=== PATIENT | male | born 1960 | race Caucasian/White ===

== ENCOUNTER 2019-11-20 14:04 | Outpatient (CLI) | payer BC, SELFPAY ==
[2019-11-23 12:59] LABS: LH 6.6 mIU/mL (1.5-9.3)
[2019-11-25 07:07] LABS: Testosterone Free 76.6 pg/mL (35.0-155.0); Testosterone Total 479 ng/dL (250-1100)
== END 2019-11-20 14:05 | disposition home or self-care (01) ==
LOC: CHSLAB 14:06
PROVIDERS: PCP Internal Medicine; Visit Provider Internal Medicine
DX: N52.9 Male erectile dysfunction, unspecified (principal); E29.1 Testicular hypofunction
CPT/HCPCS: 36415; 83002; 84402; 84403

== ENCOUNTER 2020-06-24 10:29 | Outpatient (CLI) | payer BC, SELFPAY ==
[2020-06-24 10:41] LABS: Basophils Absolute Auto 0.06 K/mm3 (0.00-0.10); Basophils Percent Auto 0.8 % (0.0-1.0); Eosinophils Absolute Auto 0.34 K/mm3 (0.02-0.50); Eosinophils Percent Auto 4.6 % (1.0-6.0); Hematocrit 42.5 % (40.0-54.0); Hemoglobin 15.2 g/dL (14.0-18.0); Immature Granulocyte Absolute 0.02 K/mm3 (0.00-0.00); Immature Granulocyte Percent A 0.3 % (0.0-0.0); Lymphocytes Absolute Auto 2.57 K/mm3 (1.10-4.50); Lymphocytes Percent Auto 34.5 % (18.0-42.0); Mean Corpuscular HGB Conc 35.8 g/dL (32.0-36.0); Mean Corpuscular Hemoglobin 33.2 pg (27.0-31.0); Mean Corpuscular Volume 92.8 fL (78.0-102.0); Mean Platelet Volume 9.5 fl (8.7-11.0); Monocytes Absolute Auto 0.81 K/mm3 (0.10-0.90); Monocytes Percent Auto 10.9 % (2.0-11.0); Neutrophils Absolute Auto 3.7 K/mm3 (1.7-7.2); Neutrophils Percent Auto 48.9 % (50.0-70.0); Platelet Count Result 210 K/mm3 (150-420); Red Blood Count 4.58 M/mm3 (4.70-6.10); White Blood Count 7.5 K/mm3 (4.8-10.8)
[2020-06-24 10:49] LABS: Add Urine Microscopic? NO; Appearance Urine Clear (Clear); Bilirubin Urine Negative (Negative); Blood Urine Negative (Negative); Color Urine Yellow (Yellow); Glucose Urine UA Negative (Negative); Ketones Urine Negative (Negative); Leukocyte Esterase Ur Negative (Negative); Nitrate Urine Negative (Negative); Protein Urine Negative (Negative); Urobilinogen Urine 0.2 mg/dL (0.2-1.0); pH Urine 5.5 (5.0-8.0)
[2020-06-24 11:45] LABS: Alanine Aminotransferase 25 U/L (16-63); Albumin Level 3.8 g/dL (3.4-5.0); Alkaline Phosphatase 105 U/L (46-116); Anion Gap 7 mmol/L (8-16); Aspartate Amino Transferase 12 U/L (15-37); Bilirubin,Total 0.4 mg/dL (0.00-1.00); Blood Urea Nitrogen 15 mg/dL (7-18); Calcium 9.8 mg/dL (8.5-10.1); Carbon Dioxide 30 mmol/L (21-32); Chloride 100 mmol/L (98-108); Cholesterol 204 mg/dL (0-200); Estimated Glomerular Filt Rate > 60; Glucose 110 mg/dL (70-99); HDL Direct 39 mg/dL (40-60); LDL Cholesterol Calculated 128 mg/dL (<130); Osmolality Calculated 285 mOsm/kg (285-295); Potassium 4.3 mmol/L (3.5-5.1); Prostate Specific Antigen 2.5 ng/mL (< OR = 4.0); Sodium 137 mmol/L (136-145); Total Protein 7.8 g/dL (6.4-8.2); Triglycerides 183 mg/dL (0-150)
[2020-06-24 16:02] LABS: Hemoglobin A1C 5.3 % (<5.7)
== END 2020-06-24 10:30 | disposition home or self-care (01) ==
LOC: CHSLAB 10:31
PROVIDERS: PCP Internal Medicine; Visit Provider Internal Medicine
DX: Z00.00 Encounter for general adult medical examination without abnormal findings (principal); I10 Essential (primary) hypertension; Z12.5 Encounter for screening for malignant neoplasm of prostate; R73.9 Hyperglycemia, unspecified
CPT/HCPCS: 36415; 80053; 80061; 81003; 83036; 84153; 85025; G0103

== ENCOUNTER 2020-08-16 02:06 | Outpatient (CLI) | payer BC, SELFPAY ==
[2020-08-16 19:10] LABS: SARS-CoV-2 RNA PCR Negative
== END 2020-08-16 02:07 | disposition home or self-care (01) ==
LOC: ANHCOVIDDT 02:06
PROVIDERS: PCP Internal Medicine; Visit Provider Surgery
DX: Z01.812 Encounter for preprocedural laboratory examination (principal); Z20.828 Contact with and (suspected) exposure to other viral communicable diseases
CPT/HCPCS: 87635; C9803; U0003

== ENCOUNTER 2020-08-19 00:32 | Day surgery (SDC) | payer BC, SELFPAY ==
[2020-08-05 14:59] VITALS: BMI 30.2
[2020-08-19 14:04] VITALS: BP 178/86; PULSE 63; RESP 20; TEMP 36.7; O2SAT 98
--- NOTE | 2020-08-19 14:38 | PM.IMHP ---
H&P: HPI History of Present Illness Date/Time: 08/19/20 14:38 Chief complaint: 2 CM Back Mass Narrative: Savage Lebron is a 60 year old male who presents for excision of a skin lesion on his back. He previously had melanoma excised in this area. Review of Systems Review of Systems: All systems reviewed & are unremarkable except as noted in HPI and below Constitutional: Constitutional: Denies chills, Denies fever(s), Denies headache(s) and Denies weight loss Eyes: Eyes: Denies change in vision ENT: Denies dizziness, Denies headache(s), Denies neck mass and Denies throat swelling Cardiovascular: Cardiovascular: Denies chest pain, Denies lightheadedness and Denies dyspnea Respiratory: Respiratory: Denies cough, Denies dyspnea and Denies wheezing Gastrointestinal: Gastrointestinal: Denies abdominal pain, Denies change in bowel habits, Denies nausea and Denies vomiting Genitourinary: Genitourinary: Denies hematuria and Denies dysuria Musculoskeletal: Musculoskeletal: Reports as per HPI Integumentary/Breasts: Skin/Breast: Reports as per HPI Neurologic: Denies dizziness and Denies headache(s) Allergic/Immunologic: Allergic/Immunologic: Denies throat swelling and Denies wheezing PMF Past Medical History Medical History Hypertension Osteoporosis Skin cancer Surgical History Surgical History History of appendectomy Status post surgical removal of malignant neoplasm of skin Family History Family History Sibling Hypertension Father Colon cancer Social History Social History Smoking packs per day: 1 Smoking cigarettes per day: 20.0 Years smoked: 40 Smoking pack-years: 40.00 Smoking status: Current every day smoker Tobacco type: cigarettes Alcohol intake: current Drinks per week: 24 Alcohol use details: 24 BEERS A WEEK Substance use: current Substance use type: marijuana Other substance usage details: USES 3-4 TIMES A WEEK Last use: 08/04/2020 Living arrangements: alone 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 Gender identity (if verbalized by the patient): Male Meds Home Medications and Allergies Home Medications Medication Instructions Recorded Confirmed Type triamterene 37.5 1 cap PO DAILY 08/24/19 08/19/20 History mg-hydrochlorothiazide 25 mg capsule carvedilol 12.5 mg PO BID 08/31/19 08/19/20 History ibuprofen 600 mg PO DAILY 08/31/19 08/19/20 History multivitamin 1 tablet PO DAILY 08/31/19 08/19/20 History hydrocodone-acetaminophen [Denair] 1 tablet PO HS PRN 08/05/20 08/05/20 History Allergies Allergy/AdvReac Type Severity Reaction Status Date / Time No Known Allergies Allergy Verified 08/19/20 13:58 Exam Const: General: no acute distress and alert Orientation/consciousness: patient oriented x3 HENMT: Head: normocephalic and atraumatic Ears: hearing grossly normal bilaterally General nose exam: Normal nares present Mouth: Yes Normal oral and palatal mucosa present Eyes: Periorbital: periorbital findings normal Sclera: sclerae normal EOM: EOMs intact bilaterally Neck: Neck: normal visual inspection, no lymphadenopathy and trachea midline Chest: Chest palpation & inspection: normal inspection of the chest Resp: Effort & Inspection: normal respiratory effort Auscultation: clear to auscultation bilaterally Cardio: Jugular venous distension: no JVD Rate: regular rate Rhythm: regular rhythm Heart sounds: S1 normal heart sound present and S2 normal heart sound present Peripheral pulses: Peripheral pulses 2+ throughout GI: Inspection: normal to inspection GI Palp: Yes Soft to palpation, No Tenderness to palpation present (GI), No Guarding due to palpation present (GI) and No Rebound tender
--- NOTE | 2020-08-19 14:40 | WPDHPUPDATE1 ---
History and Physical Update Update Date/Time: 08/19/20 14:40 History and Physical has been reviewed, including an updated exam of the patient. There are NO changes in the patient's condition. Risks, benefits, and alternatives have been discussed and questions answered. Patient agrees to proceed with procedure.
[2020-08-19 15:00] VITALS: BP 197/87; PULSE 63; RESP 20; O2SAT 97
[2020-08-19] MEDS: LIDO 1%/EPINEPHRINE 1:100,000 20 ML VIAL INFILTRATE (15:05)
[2020-08-19 15:10] VITALS: BP 223/100; PULSE 61; RESP 20; O2SAT 97
[2020-08-19 15:20] VITALS: BP 187/91; PULSE 62; RESP 20; O2SAT 95
[2020-08-19 15:30] VITALS: BP 189/89; PULSE 63; RESP 20; O2SAT 95
[2020-08-19 15:37] VITALS: BP 147/73; PULSE 64; RESP 14
--- NOTE | 2020-08-19 15:45 | P.OP_ITS ---
Procedure Note - Detailed Date of procedure: 08/19/20 Pre-op diagnosis: 4 CM Back Mass Post-op diagnosis: same Procedure performed: Excision of 4 cm back mass Description of procedure: * Area was prepped and draped in sterile fashion using chlorhexidine prep. 1% lidocaine with epinephrine was infiltrated locally around back mass. A 4 cm elliptical incision was made using a 15 blade scalpel. Mass was sharply excised with a 15 blade scalpel. There was some deep subcu involvement with pigmented lesion. This was excised as well. Hemostasis was then achieved with electrocautery. The skin edges were undermined using electrocautery to allow for adequate closure. The skin edges were then reapproximated using 3 0 nylon vertical mattress interrupted sutures. Bacitracin ointment was applied followed by 4 x 4 gauze and Medipore tape. Anesthesia: local (1% lidocaine with epinephrine) Surgeon: Carlos Vitale DO Estimated blood loss (mL): 5 Pathology: yes Complications: No immediate complications Condition: stable Disposition: same day Findings: This is a 60-year-old man with a prior history of malignant melanoma. He had undergone wide excision of the melanoma with sentinel lymph node biopsy about 11 months ago. He was doing well postoperatively, but over the past few months has noticed a pigmented subcu lesion redevelop. Decision was made to proceed with excision of the lesion to identify whether this is persistent melanoma. Excision of the back mass was performed. This appeared to be a subcu back mass that was invading into some of the subcu tissues surrounding it. The areas appeared pigmented and there were multiple small projections throughout the subcu tissue below the back skin. A wide ellipse was performed and some of the deep tissue was excised along with this. Skin edges were then reapproximated with 3 0 nylon vertical mattress interrupted sutures.
== END 2020-08-19 16:00 | disposition home or self-care (01) ==
PROVIDERS: PCP Internal Medicine; Visit Provider Surgery
PROC: (CPT 21931; principal; 2020-08-19 15:00)
DX: C43.59 Malignant melanoma of other part of trunk (principal); I10 Essential (primary) hypertension; M81.0 Age-related osteoporosis without current pathological fracture; F17.210 Nicotine dependence, cigarettes, uncomplicated; F12.90 Cannabis use, unspecified, uncomplicated
CPT/HCPCS: 21931; 88307; A9270

== ENCOUNTER 2020-08-26 07:07 | Outpatient (CLI) | payer BC, SELFPAY ==
--- NOTE | ~2020-08-26 | CT_ITS ---
EXAMINATION: CT soft tissue neck chest w EXAM DATE: 08/26/2020 07:43 INDICATION: Melanoma of trunk. TECHNIQUE: Spiral CT of the neck and chest was performed following intravenous injection of 75 mL Omn ipaque 350. Axial, coronal and sagittal images of the neck were reviewed. Axial, coronal and sagitt al images of the chest were reviewed. Coronal maximum intensity pixel images of chest reviewed. The dose-length product (DLP) for this examination was 1117.31 mGy-cm. The exposure was tailored accord ing to patient size (auto mA exposure control), and iterative reconstruction (ASIR) was used as addit ional dose reduction technique. There is no prior study for comparison. FINDINGS: NECK: There is greater than 70 % stenosis of the right carotid bulb (lumen indicated on axial image 5 3). There is moderate left carotid plaque without stenosis. The thyroid gland is unremarkable. The submandibular and parotid glands are symmetric. There is no cervical lymphadenopathy. There are n o masses identified. The airway is unremarkable. Parapharyngeal and pre-glottic fat planes are p reserved. Most of the left maxillary sinus is opacified. There is mild bilateral ethmoid and right maxillary sinus mucoperiosteal thickening. Mild to moderate left sphenoid sinus mucoperiosteal thicke lissy. No sinus air-fluid levels. There is old left lamina fracture appreciated fracture. Trace left m astoid fluid. There is cervical spondylosis. CHEST: There is a noncalcified nodule, with several faint spiculation suspected, in the left lower lo be measuring 1.1 cm. There are no pleural or pericardial effusions. Tracheobronchial tree is paten t. There is no mediastinal, hilar or axillary lymphadenopathy. There is no pneumothorax. Heart normal in size. There is mild coronary arterial calcification, arterial sclerosis. Upper abdomen i s unremarkable. There is thoracic spondylosis without osteoblastic or osteolytic lesions identified . IMPRESSION: 1. Left lower lobe solitary 1.1 cm nodule; most likely either primary lung cancer or noncalcified gr anuloma. Assuming no prior studies available for comparison at outside institution, recommend CT-guid ed biopsy or PET/CT. 2. Bilateral carotid plaque with right carotid bulb greater than 70% stenosis. Consider vascular con sult. 3. Mucoperiosteal thickening, with nearly opacified left maxillary sinus. 4. No pathologically enlarged neck or chest lymph nodes. Reviewed, dictated and finalized at location A. RUMENTATION MANAGER IMPRESSION: 1. Left lower lobe solitary 1.1 cm nodule; most likely either primary lung can cer or noncalcified granuloma. Assuming no prior studies available for comparis on at outside institution, recommend CT-guided biopsy or PET/CT. 2. Bilateral carotid plaque with right carotid bulb greater than 70% stenosis. Consider vascular consult. 3. Mucoperiosteal thickening, with nearly opacified left maxillary sinus. 4. No pathologically enlarged neck or chest lymph nodes.
[2020-08-27 11:23] LABS: Estimated Glomerular Filt Rate > 60
== END 2020-08-26 07:08 | disposition home or self-care (01) ==
LOC: ANHIMG 07:10
PROVIDERS: PCP Internal Medicine; Visit Provider Internal Medicine Hematology & Oncology
DX: C43.59 Malignant melanoma of other part of trunk (principal); R91.1 Solitary pulmonary nodule; I65.23 Occlusion and stenosis of bilateral carotid arteries; J32.9 Chronic sinusitis, unspecified
CPT/HCPCS: 70491; 71260; Q9967

== ENCOUNTER 2020-09-14 02:09 | Outpatient (CLI) | payer BC, SELFPAY ==
[2020-09-14 20:08] LABS: SARS-CoV-2 RNA PCR Negative
== END 2020-09-14 02:10 | disposition home or self-care (01) ==
LOC: ANHCOVIDDT 02:09
PROVIDERS: PCP Internal Medicine; Visit Provider Surgery Plastic and Reconstructive Surgery
DX: Z01.812 Encounter for preprocedural laboratory examination (principal); Z20.822 Contact with and (suspected) exposure to COVID-19
CPT/HCPCS: C9803; U0003

== ENCOUNTER 2020-09-16 13:06 | Outpatient (CLI) | payer BC, SELFPAY ==
--- NOTE | 2020-09-16 13:09 | ECG_ITS ---
Measurements Intervals [place] Rate: 62 P: 12 ID: 174 QRS: 5 QRSD: 113 T: 11 QT: 381 QTc: 388 Interpretive Statements SINUS RHYTHM INTRAVENTRICULAR CONDUCTION DELAY BORDERLINE ECG Electronically Signed On 09-16-2020 13:25:17 SUPERVISOR AIR CONDITIONING INSTALLER by Gary Rutledge D.O.
[2020-09-16 13:42] LABS: Anion Gap 6 mmol/L (8-16); Blood Urea Nitrogen 20 mg/dL (9-20); Carbon Dioxide 35 mmol/L (22-30); Chloride 98 mmol/L (98-107); Estimated Glomerular Filt Rate > 60; Glucose 108 mg/dL (75-110); Potassium 4.3 mmol/L (3.4-5.0); Sodium 139 mmol/L (137-145)
== END 2020-09-16 13:07 | disposition home or self-care (01) ==
LOC: ANHSURGERY 13:09
PROVIDERS: Anesthesiology; PCP Internal Medicine; Visit Provider Surgery Plastic and Reconstructive Surgery
DX: Z01.818 Encounter for other preprocedural examination (principal); I10 Essential (primary) hypertension; Z72.0 Tobacco use
CPT/HCPCS: 36415; 80048; 93005

== ENCOUNTER 2020-09-18 00:45 | Day surgery (SDC) | payer BC, SELFPAY ==
[2020-09-12 12:21] VITALS: BMI 29.7
--- NOTE | 2020-09-17 10:15 | WPDANESEPPF ---
Anes - Initial Pre Proc Eval Procedure: Operation Date: 09/18/20 13:00 Proposed Procedures p Excision Melanoma Upper Back with [place] Lymph Node Biopsy, Possible Adjacent Tissue Transfer, - Alfred Rizzo MD s Possible Split Thickness Skin Graft - Alfred Rizzo MD Date/Time: 09/17/20 10:15 Surgeon: Alfred Rizzo MD Pre Op Diagnosis: melanoma upper back Patient Data Age: 60 Gender: M Height: 1.73 m Weight: 88.6 kg Allergies Allergy/AdvReac Type Severity Reaction Status Date / Time No Known Allergies Allergy Verified 09/18/20 10:25 Home Medications Medication Instructions Recorded Confirmed Type triamterene 37.5 1 cap PO DAILY 08/24/19 09/18/20 History mg-hydrochlorothiazide 25 mg capsule carvedilol 12.5 mg PO BID 08/31/19 09/18/20 History multivitamin 1 tablet PO DAILY 08/31/19 09/18/20 History hydrocodone 7.5 mg-acetaminophen 1 tablet PO DAILY tablet 08/22/20 09/18/20 History 325 mg tablet ibuprofen 600 mg PO QAM 09/12/20 09/18/20 History Patient hx anesthesia problems: none Family hx anesthesia problems: none PMFSH Past Medical History Medical History Hypertension Osteoporosis Skin cancer Surgical History Surgical History History of appendectomy History of surgical removal of skin lesion Excision of 4 cm back mass Status post surgical removal of malignant neoplasm of skin Family History Family History Sibling Hypertension Father Colon cancer Social History Social History Smoking packs per day: 1 Smoking cigarettes per day: 20.0 Years smoked: 40 Smoking pack-years: 40.00 Tobacco type: cigarettes Alcohol intake: current Drinks per week: 24 Substance use: current Substance use type: marijuana Other substance usage details: USES 3-4 TIMES A WEEK Last use: 08/04/2020 Living arrangements: alone 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 Gender identity (if verbalized by the patient): Male Spiritual care concerns: No Anes - Eval Final PreProcedure Day of Procedure 09/17/20 10:15 Patient weight: overweight Heart: regular rate and rhythm Lungs: clear to auscultation and normal air movement Airway: Mallampati scale class II Neurological: alert and oriented Last oral intake: >/= 8 hours ASA classification: III Emergent: no Anesthetic plan: proceed Anesthesia type and monitoring: general ETT and standard monitoring Informed Consent: The patient's anesthetic plan and its attendant risks and benefits were discussed with the patient/family/POA. Questions were solicited and answers provided to the satisfaction of the patient/family/POA.
--- NOTE | ~2020-09-18 | NM_ITS ---
EXAMINATION: NM sentinel node w imaging INDICATION: Melanoma of the upper back TECHNIQUE: 0.51 mCi Tc 99m Lymphoseek were injected in 4 aliquots in the upper back near the site of patient's biopsy site and surgical scar. FINDINGS: There appear to be bilateral supraclavicular sentinel lymph nodes. IMPRESSION: 1. Apparent bilateral supraclavicular sentinel lymph nodes. Reviewed, dictated and finalized at location A. T TENDER
[2020-09-18 10:40] VITALS: BP 171/85; PULSE 74; RESP 16; TEMP 36.6; O2SAT 99
[2020-09-18] MEDS: LACTATED RINGERS 1,000 ML 30 ML IV CONT ×2 (10:51→15:18)
--- NOTE | 2020-09-18 10:54 | SUR.PREOP ---
To Nuclear medicine per w/c.
--- NOTE | 2020-09-18 12:18 | WPDHPUPDATE1 ---
History and Physical Update Update Date/Time: 09/18/20 12:18 History and Physical has been reviewed, including an updated exam of the patient. There are NO changes in the patient's condition. Risks, benefits, and alternatives have been discussed and questions answered. Patient agrees to proceed with procedure.
[2020-09-18] MEDS: ceFAZolin 2 GM/D5W 50 ML 2 GM/50 ML BAG IVPB (13:34)
[2020-09-18] MEDS: LIDO 1%/EPINEPHRINE 1:100,000 50 ML VIAL 20 ML INFILTRATE (14:26)
--- NOTE | 2020-09-18 15:01 | PM.PROC ---
Procedure Note - Detailed Date of procedure: 09/18/20 Pre-op diagnosis: melanoma upper back Post-op diagnosis: same Procedure performed: 1. Wide excision of melanoma upper back 8.5 cm 2. Multilayer closure (intermediate) back 10.5 cm 3. Bilateral supraclavicular sentinel lymph node biopsy (procedure aborted) Description of procedure: Patient was marked in the preoperative holding area with his verification. He was sent to Radiology for radionucleotide injection. This appeared to be anterior bilateral supraclavicular nodes. Risks, benefits, alternatives were discussed in extensive detail again today. I want him to be very realistic about the risks involved as well as expectations. Made sure answered all of his questions to his satisfaction. Discussed the severity of his findings. Consent was obtained. He was taken to the operating room say supine on the operating room table. Anesthesia was provided by anesthesiology and he was prepped and draped in a standard sterile fashion. Surgical time-out was taken. Using the probe I attempted to identify the location of the sentinel node. His entire anterior neck and supraclavicular region and to the level of the shoulder nearly had almost the same count. I did in multiple directions and angles for extensive time. I was unable to identify the location of any sentinel node as such this portion of the procedure was aborted. He was then turned prone. Care was taken to protect all bony prominences. He was prepped and draped in a standard sterile fashion. I measured out greater than 2 cm borders around the previous scar. 1% lidocaine and 0.25% Marcaine with epinephrine was used anesthetize locally. Fifteen blade used to make an incision and I continued dissection straight down as a core until the fascia was identified. This was completely removed the measurements as above. I irrigated with saline and verified strict hemostasis. I closed in many layers to obliterate all space using deep 3 point suture with 2-0 Vicryl followed by 2-0 Vicryl 3-0 Monocryl and 3-0 vertical mattress nylon. Dressings were placed. He was woken taken the PACU without difficulty. All instrument sponge counts were correct at the end the case. Anesthesia: GETA Surgeon: Alfred Rizzo MD Estimated blood loss (mL): 10 Drains: No Packing: No Pathology: yes (Recurrent melanoma of the upper back. ) Complications: No immediate complications Condition: stable Disposition: PACU Findings: Unable to identify supraclavicular sentinel nodes. Excised upper back melanoma with greater than 2 cm borders down to the level of the fascia.
--- NOTE | 2020-09-18 15:10 | SUR.OPER ---
Patient supine to prone position. Prone start time 1426. Transfered with assistance of 5 staff anesthesia at head of bed x2/supine to prone and then prone to supine for emergence.
[2020-09-18 15:18] VITALS: BP 172/85; PULSE 64; RESP 18; TEMP 36.2; O2SAT 99
[2020-09-18 15:30] VITALS: BP 150/83; PULSE 62; RESP 22; O2SAT 95
[2020-09-18 15:45] VITALS: BP 189/87; PULSE 59; RESP 23; O2SAT 96
[2020-09-18 15:52] VITALS: BP 194/83; PULSE 57; RESP 16
--- NOTE | 2020-09-18 16:11 | SUR.PHASEII ---
1545 CORRECTION: NO SENSORY BLOCK WAS DONE CHARTED.
[2020-09-18] MEDS: oxyCODONE HCL (*CRX) 5 MG TAB IR PO (16:29)
== END 2020-09-18 16:58 | disposition home or self-care (01) ==
PROVIDERS: PCP Internal Medicine; Visit Provider Surgery Plastic and Reconstructive Surgery
PROC: (CPT 11606; principal; 2020-09-18 13:00)
DX: C43.59 Malignant melanoma of other part of trunk (principal); I10 Essential (primary) hypertension; M81.0 Age-related osteoporosis without current pathological fracture; F17.210 Nicotine dependence, cigarettes, uncomplicated; F12.90 Cannabis use, unspecified, uncomplicated
CPT/HCPCS: 11606; 12034; 78195; 88305; A9270; A9520; J0171; J0330; J0690; J1100; J1200; J2001; J2250; J2405; J2704; J3010; J7120

== ENCOUNTER 2020-10-03 07:43 | Outpatient (CLI) | payer BC, SELFPAY ==
--- NOTE | ~2020-10-03 | PE_ITS ---
EXAMINATION: PET skull to mid thigh DATE: 10/03/2020 09:58 INDICATION: Melanoma of trunk. TECHNIQUE: Blood glucose level was 108 mg/dL. 8.937 mCi of 18-fluorodeoxyglucose (18-FDG) was adminis tered i.v. Low dose computed tomography (CT) images were acquired from the base of the brain to the p roximal thighs for attenuation correction and anatomic localization. Automated exposure control was e mployed. Dose-length product (DLP) was 1129 mGy-cm. Positron emission tomography (PET) images were ac quired in the same distribution. COMPARISON: CT neck and chest 08/26/2020 FINDINGS: Head/neck: There is increased activity in the nasopharynx, oropharynx, oral cavity, and glottis witho ut CT correlate, likely physiologic. There are no pathologically enlarged lymph nodes. There is an ol d old blowout fracture of medial wall of left orbit. There is mucosal thickening in the paranasal sin uses. There is multifocal dental disease. Chest: There is an area of resection of the skin and subcutaneous fat of the posterior trunk with inc reased activity at the resection margins, consistent with inflammation. There is a 12 mm nodule in le ft lung lower lobe without increased activity. There is an 8 mm nodule left lower lobe without increa sed activity. Calcified left lung nodules and calcified left hilar lymph nodes are consistent with ol d granulomatous disease. No pleural effusion. The heart size is normal. There are coronary artery daniel cifications. No pericardial effusion. Abdomen/pelvis/proximal thighs: The liver and gallbladder are normal. Calcifications in the spleen ar e consistent with old granulomatous disease. The pancreas is normal. There is thickening of the adren al glands without increased activity, likely benign. The kidneys are normal. The prostate is mildly e nlarged. There is diverticulosis of the colon without evidence of diverticulitis. There are no dilate d loops of bowel. There is mild periportal lymphadenopathy without increased activity, likely reactiv e. There is no free intraperitoneal fluid. IMPRESSION: 1. 12 mm and 8 mm left lower lobe pulmonary nodules without increased activity, probably benign. Non contrast low-dose chest CT is recommended in 6 months. Reviewed, dictated and finalized at location B. STITCHER MACHINE IMPRESSION: 1. 12 mm and 8 mm left lower lobe pulmonary nodules without increased activity , probably benign. Noncontrast low-dose chest CT is recommended in 6 months.
[2020-10-03 08:13] LABS: Glucose Point of Care 108 (65-105)
== END 2020-10-03 07:44 | disposition home or self-care (01) ==
LOC: ANHIMG 07:50
PROVIDERS: PCP Internal Medicine; Visit Provider Internal Medicine Hematology & Oncology
DX: C43.59 Malignant melanoma of other part of trunk (principal); R91.8 Other nonspecific abnormal finding of lung field
CPT/HCPCS: 78815; A9552

== ENCOUNTER → 2020-10-22 03:40 | Outpatient (CLI) | payer BC, SELFPAY ==
[2020-10-23 18:18] LABS: SARS-CoV-2 RNA PCR Negative
== END ==
PROVIDERS: PCP Internal Medicine; Visit Provider Surgery Plastic and Reconstructive Surgery
DX: Z01.812 Encounter for preprocedural laboratory examination (principal); Z20.822 Contact with and (suspected) exposure to COVID-19
CPT/HCPCS: C9803; U0003; U0005

== ENCOUNTER 2020-10-25 00:41 | Day surgery (SDC) | payer BC, SELFPAY ==
[2020-10-21 16:37] VITALS: BMI 29.6
[2020-10-25] VITALS (7 sets, daily range): BP systolic 132–187; BP diastolic 69–95; PULSE 57–66; RESP 12–24; TEMP 36.5–36.6; O2SAT 98–100; BMI 28.7
[2020-10-25] MEDS: LACTATED RINGERS 1,000 ML 30 ML IV CONT ×2 (07:41→10:39)
--- NOTE | 2020-10-25 08:29 | WPDHPUPDATE1 ---
History and Physical Update Update Date/Time: 10/25/20 08:29 History and Physical has been reviewed, including an updated exam of the patient. There are NO changes in the patient's condition. Risks, benefits, and alternatives have been discussed and questions answered. Patient agrees to proceed with procedure.
--- NOTE | 2020-10-25 08:52 | PM.PROC ---
Procedure Note - Detailed Date of procedure: 10/25/20 Pre-op diagnosis: 14 cm melanoma on back Post-op diagnosis: same Procedure performed: 1. Wide excision of melanoma on back / neck 17 cm 2. Split-thickness skin graft back / neck 9 x 9 cm (81cm2) 3. Intermediate closure 6cm Description of procedure: Patient has a significant history of melanoma. Recently we proceeded with excision and he had separation with open wound. This has been healing. His final pathology was: - RESIDUAL/RECURRENT MALIGNANT MELANOMA, MULTIFOCAL BULKY DISEASE IN SUBCUTANEOUS TISSUE, WITH DEPTH OF INVASION OF 1.3 CM (13 MM) (SEE COMMENT). Margins: Peripheral margins: Uninvolved by invasive melanoma; Distance of invasive melanoma from closest peripheral margin: 0.2 cm from 6:00 margin; Uninvolved by melanoma in situ (no melanoma in situ identified); Deep margin: Uninvolved by melanoma in situ; Uninvolved by invasive melanoma; Distance of invasive melanoma from deep margin: 0.5 cm. He has elected to proceed with re-excision to get a 2cm border and STSG. Risks, benefits, alternatives were discussed in extensive detail. I want him to be very realistic about the risks involved as well as expectations. Discussed aftercare. What monitor for. All questions answered to his satisfaction. Consent obtained. Patient was marked in the preoperative holding area. He was taken to the operating room. Anesthesia provided by anesthesiology. He was placed in a prone position on the bed with adequate care taken to protect all bony prominences. He was prepped and draped in a standard sterile fashion. Surgical time-out was taken. 1% lidocaine and 0.25% Marcaine with epinephrine was used anesthetize locally. Fifteen blade used to make an incision around the mass with greater than 2 cm margins. Dissection was continued down to the fashion this was completely removed. I verified strict hemostasis. Copiously irrigated with saline solution. I was able to close a portion lateral (bilateral) in multiple layers to obliterate space with 2-0 Vicryl, 3-0 Monocryl, and shahida. I then used a [employer] dermatome in order to harvest a 12 1 thousands of an inch graft from the back. This was meshed in a 1.5-[address] in the wound. I created a bolster dressing for the graft using Xeroform and cotton with a tie-over using 2-0 nylon. I then placed a large Tegaderm style dressing over the donor site. Dressings were secured. He was awoke and taken to the PACU without difficulty. All instrument sponge counts were correct at the end of the case. Anesthesia: GETA Surgeon: Alfred Rizzo MD Estimated blood loss (mL): 10 Drains: No Packing: Yes (Bolster dressing) Pathology: yes (Re-excision of melanoma) Complications: No immediate complications Condition: stable Disposition: PACU
--- NOTE | 2020-10-25 08:59 | P.PNAN_ITS ---
Anes - Initial Pre Proc Eval Procedure: Operation Date: 10/25/20 09:00 Proposed Procedures p Excision Melanoma Upper Back, Possible Intermediate Closure, Possible Complex Closure, Possible Adjacent Tissue Transfer, - Alfred Rizzo MD s Possible Split Thickness Skin Graft - Alfred Rizzo MD Date/Time: 10/25/20 08:59 Surgeon: Alfred Rizzo MD Pre Op Diagnosis: 14 cm melanoma on back Patient Data Age: 60 Gender: M Height: 5 ft 8 in Weight: 85.7 kg Last Vital Signs Temp 97.9 F 10/25/20 07:33 Pulse 66 10/25/20 07:33 Resp 20 10/25/20 07:33 BP 132/69 10/25/20 07:33 Pulse Ox 98 10/25/20 07:33 Allergies Allergy/AdvReac Type Severity Reaction Status Date / Time No Known Allergies Allergy Verified 10/25/20 07:31 Home Medications Medication Instructions Recorded Confirmed Type triamterene 37.5 1 cap PO DAILY 08/24/19 10/25/20 History mg-hydrochlorothiazide 25 mg capsule carvedilol 12.5 mg PO BID 08/31/19 10/25/20 History multivitamin 1 tablet PO DAILY 08/31/19 10/25/20 History ibuprofen 600 mg PO QAM 09/12/20 10/25/20 History Patient hx anesthesia problems: none Family hx anesthesia problems: none PMFSH Past Medical History Medical History Hypertension Osteoporosis Skin cancer Surgical History Surgical History History of appendectomy History of surgical removal of skin lesion Excision of 4 cm back mass Status post surgical removal of malignant neoplasm of skin Family History Family History Sibling Hypertension Father Colon cancer Social History Social History Smoking packs per day: 1 Smoking cigarettes per day: 20.0 Years smoked: 40 Smoking pack-years: 40.00 Smoking status: Current every day smoker Tobacco type: cigarettes Alcohol intake: current Drinks per week: 10 Substance use: current Substance use type: does not use Other substance usage details: USES 3-4 TIMES A WEEK Last use: 08/04/2020 Living arrangements: alone 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 Questions were solicited and answers provided to the satisfaction of the patient/family/POA.
[2020-10-25] MEDS: LIDO 1%/EPINEPHRINE 1:100,000 50 ML VIAL 20 ML INFILTRATE (09:11)
[2020-10-25] MEDS: BUPIVACAINE/EPINEPHRINE 0.25% 50 ML VIAL 20 ML INFILTRATE (09:11)
[2020-10-25] MEDS: ceFAZolin 2 GM/D5W 50 ML 2 GM/50 ML BAG IVPB (09:11)
--- NOTE | 2020-10-25 09:11 | SUR.PREOP ---
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
== END 2020-10-25 12:10 | disposition home or self-care (01) ==
PROVIDERS: PCP Internal Medicine; Visit Provider Surgery Plastic and Reconstructive Surgery
PROC: (CPT 11606; principal; 2020-10-25 09:00)
DX: C43.59 Malignant melanoma of other part of trunk (principal); I10 Essential (primary) hypertension; M81.0 Age-related osteoporosis without current pathological fracture; F17.210 Nicotine dependence, cigarettes, uncomplicated; E66.9 Obesity, unspecified; Z68.28 Body mass index [BMI] 28.0-28.9, adult
CPT/HCPCS: 11606; 15100; 88305; 88342; A9270; J0171; J0330; J0690; J2250; J2405; J2704; J3010; J7120

== ENCOUNTER 2020-12-31 11:28 | Outpatient (CLI) | payer BC, SELFPAY ==
--- NOTE | ~2020-12-31 | XR_ITS ---
EXAMINATION: XR chest 2V DATE: 12/31/2020 11:50 INDICATION: Melanoma of the trunk. TECHNIQUE: Frontal and lateral views of the chest were obtained. COMPARISON: PET/CT 10/03/2020 FINDINGS: Calcified left lung nodules and calcified left hilar lymph nodes are consistent with old gr anulomatous disease. No pleural effusion or pneumothorax. The heart size is normal. There is mild chr onic anterior wedging of multiple vertebral bodies. IMPRESSION: 1. No acute cardiopulmonary disease. Reviewed, dictated and finalized at location B.
[2020-12-31 11:56] LABS: Basophils Absolute Auto 0.07 K/mm3 (0.00-0.10); Eosinophils Percent Auto 5.8 % (1.0-6.0); Hematocrit 41.4 % (40.0-54.0); Hemoglobin 14.2 g/dL (14.0-18.0); Immature Granulocyte Absolute 0.03 K/mm3 (0.00-0.00); Immature Granulocyte Percent A 0.4 % (0.0-0.0); Lymphocytes Absolute Auto 2.44 K/mm3 (1.10-4.50); Lymphocytes Percent Auto 35.5 % (18.0-42.0); Mean Corpuscular HGB Conc 34.3 g/dL (32.0-36.0); Mean Corpuscular Hemoglobin 32.3 pg (27.0-31.0); Mean Corpuscular Volume 94.1 fL (78.0-102.0); Mean Platelet Volume 10.1 fl (8.7-11.0); Monocytes Absolute Auto 0.67 K/mm3 (0.10-0.90); Monocytes Percent Auto 9.7 % (2.0-11.0); Neutrophils Absolute Auto 3.3 K/mm3 (1.7-7.2); Neutrophils Percent Auto 47.6 % (50.0-70.0); Platelet Count Result 194 K/mm3 (150-420); Red Cell Distribution Width 13.4 % (11.6-14.4); White Blood Count 6.9 K/mm3 (4.8-10.8)
[2020-12-31 12:32] LABS: Alanine Aminotransferase 27 U/L (16-63); Albumin Level 3.9 g/dL (3.4-5.0); Alkaline Phosphatase 90 U/L (46-116); Anion Gap 9 mmol/L (8-16); Aspartate Amino Transferase 17 U/L (15-37); Bilirubin,Total 0.5 mg/dL (0.00-1.00); Blood Urea Nitrogen 14 mg/dL (7-18); Calcium 9.2 mg/dL (8.5-10.1); Carbon Dioxide 29 mmol/L (21-32); Chloride 99 mmol/L (98-108); Estimated Glomerular Filt Rate > 60; Glucose 97 mg/dL (70-99); Lactate Dehydrogenase 141 U/L (85-227); Osmolality Calculated 284 mOsm/kg (285-295); Potassium 3.8 mmol/L (3.5-5.1); Sodium 137 mmol/L (136-145); Total Protein 7.3 g/dL (6.4-8.2)
== END 2020-12-31 11:29 | disposition home or self-care (01) ==
LOC: CHSLAB 11:31
PROVIDERS: PCP Internal Medicine; Visit Provider Internal Medicine Hematology & Oncology
DX: C43.59 Malignant melanoma of other part of trunk (principal)
CPT/HCPCS: 36415; 71046; 80053; 83615; 85025

== ENCOUNTER 2021-03-24 10:35 | Outpatient (CLI) | payer BC, SELFPAY ==
[2021-03-24 10:51] LABS: Basophils Absolute Auto 0.05 K/mm3 (0.00-0.10); Basophils Percent Auto 0.7 % (0.0-1.0); Eosinophils Absolute Auto 0.37 K/mm3 (0.02-0.50); Eosinophils Percent Auto 4.9 % (1.0-6.0); Hematocrit 42.9 % (40.0-54.0); Hemoglobin 15.1 g/dL (14.0-18.0); Immature Granulocyte Absolute 0.01 K/mm3 (0.00-0.00); Immature Granulocyte Percent A 0.1 % (0.0-0.0); Lymphocytes Absolute Auto 2.21 K/mm3 (1.10-4.50); Lymphocytes Percent Auto 29.1 % (18.0-42.0); Mean Corpuscular HGB Conc 35.2 g/dL (32.0-36.0); Mean Corpuscular Hemoglobin 32.6 pg (27.0-31.0); Mean Corpuscular Volume 92.7 fL (78.0-102.0); Mean Platelet Volume 9.3 fl (8.7-11.0); Monocytes Absolute Auto 0.83 K/mm3 (0.10-0.90); Monocytes Percent Auto 10.9 % (2.0-11.0); Neutrophils Absolute Auto 4.1 K/mm3 (1.7-7.2); Neutrophils Percent Auto 54.3 % (50.0-70.0); Platelet Count Result 194 K/mm3 (150-420); Red Blood Count 4.63 M/mm3 (4.70-6.10); White Blood Count 7.6 K/mm3 (4.8-10.8)
[2021-03-24 11:38] LABS: Alanine Aminotransferase 29 U/L (16-63); Albumin Level 3.6 g/dL (3.4-5.0); Alkaline Phosphatase 93 U/L (46-116); Anion Gap 9 mmol/L (8-16); Aspartate Amino Transferase 18 U/L (15-37); Bilirubin,Total 0.4 mg/dL (0.00-1.00); Blood Urea Nitrogen 17 mg/dL (7-18); Calcium 9.6 mg/dL (8.5-10.1); Carbon Dioxide 29 mmol/L (21-32); Chloride 104 mmol/L (98-108); Estimated Glomerular Filt Rate > 60; Glucose 95 mg/dL (70-99); Osmolality Calculated 295 mOsm/kg (285-295); Potassium 4.8 mmol/L (3.5-5.1); Sodium 142 mmol/L (136-145); Total Protein 6.8 g/dL (6.4-8.2)
== END 2021-03-24 10:36 | disposition home or self-care (01) ==
LOC: CHSLAB 10:37
PROVIDERS: PCP Internal Medicine; Visit Provider Internal Medicine Hematology & Oncology
DX: C43.59 Malignant melanoma of other part of trunk (principal)
CPT/HCPCS: 36415; 80053; 85025

== ENCOUNTER 2021-03-25 07:41 | Outpatient (CLI) | payer BC, SELFPAY ==
--- NOTE | ~2021-03-25 | CT_ITS ---
EXAMINATION: CT diagnostic chest w con DATE: 03/25/2021 08:24 INDICATION: Melanoma of back, exercise in September 2020 TECHNIQUE: Computed tomography (CT) of the chest was performed with 75 cc Omnipaque 350 intravenous c ontrast. Automated exposure control and iterative reconstruction technique were employed. Exam dose: 359.13 mGy-cm total exam DLP. COMPARISON: 10/03/2020 PET/CT scan 08/26/2020 CT soft tissue neck and chest FINDINGS: There is a focal area of skin thickening in the posterior right back at the L2 level (serie s 3 image 126). Correlation with physical examination is recommended. Normal size and homogeneous enhancement of the thyroid gland. Stable hilar and mediastinal lymph nodes. Normal heart size. No thoracic aortic aneurysm or dissection is evident. Coronary artery calcificatio n. No pericardial or pleural effusion. Calcified left lower lobe pulmonary granulomas and calcified left hilar nodes consistent with old gra nulomatous disease. There are calcified hepatic and splenic granulomas as well. Previous 11 mm posterior left lower lobe pulmonary mass currently measures approximately 9 mm. Additi onal 3.8 mm and 6.2 x 9.5 mm left lower lobe pulmonary nodules are noted; differential diagnosis incl udes granulomatous disease, pulmonary metastases or primary lung cancer. Interval left adrenal mass lesion since 08/26/2020 measuring up to 2.8 x 3.3 cm dimension. Separate origin of hepatic artery from the aorta. Prominent abdominal aortic calcification and promin ent calcification at the origins of the superior mesenteric and renal arteries. Mildly displaced posterior right 11th rib fracture. No suspicious osteolytic or osteoblastic lesions are noted. IMPRESSION: 3 left lower lobe pulmonary masses measuring 3.8 millimeters, 6.2 x 9.5 mm and 9 (decrea sed from 11) mm; differential diagnosis includes metastatic disease as well as granulomatous disease 2.8 x 3.3 cm new left adrenal mass since 08/26/2020, suggesting metastatic disease Focal posterior right back soft tissue thickening (series 3 image 126); clinical correlation is advis ed. Reviewed, dictated and finalized at Location A. Reviewed, dictated and finalized at location B. IMPRESSION: 3 left lower lobe pulmonary masses measuring 3.8 millimeters, 6.2 x 9.5 mm and 9 (decreased from 11) mm; differential diagnosis includes metastat ic disease as well as granulomatous disease 2.8 x 3.3 cm new left adrenal mass since 08/26/2020, suggesting metastatic dise ase Focal posterior right back soft tissue thickening (series 3 image 126); clinica l correlation is advised.
== END 2021-03-25 07:42 | disposition home or self-care (01) ==
PROVIDERS: PCP Internal Medicine; Visit Provider Internal Medicine Hematology & Oncology
DX: C43.59 Malignant melanoma of other part of trunk (principal); R91.8 Other nonspecific abnormal finding of lung field; E27.9 Disorder of adrenal gland, unspecified; M79.89 Other specified soft tissue disorders
CPT/HCPCS: 71260; Q9967

== ENCOUNTER 2021-04-03 17:13 | Outpatient (CLI) | payer BC, SELFPAY ==
[2021-04-08 04:30] LABS: Creatinine, Random Urine 172 mg/dL (20-320); Metanephrine, Total Urine 445 mcg/g cr (149-603); Metanephrine, Urine 190 mcg/g cr (21-153); Normetanephrine, Urine 255 mcg/g cr (108-524)
== END 2021-04-03 17:14 | disposition home or self-care (01) ==
LOC: CHSLAB 17:16
PROVIDERS: PCP Internal Medicine; Visit Provider Internal Medicine Hematology & Oncology
DX: D35.00 Benign neoplasm of unspecified adrenal gland (principal)
CPT/HCPCS: 82570; 83835

== ENCOUNTER → 2021-04-04 00:49 | Outpatient (CLI) | payer BC, SELFPAY ==
[2021-04-04 17:52] LABS: SARS-CoV-2 RNA PCR Negative
== END ==
PROVIDERS: PCP Internal Medicine; Visit Provider Internal Medicine Hematology & Oncology
DX: Z01.812 Encounter for preprocedural laboratory examination (principal); Z20.822 Contact with and (suspected) exposure to COVID-19
CPT/HCPCS: C9803; U0003; U0005

== ENCOUNTER 2021-04-07 09:20 | Outpatient (CLI) | payer BC, SELFPAY ==
[2021-04-01 13:07] VITALS: BMI 28.4
[2021-04-07 10:09] LABS: INR 0.9; Prothrombin Time 12.1 Seconds (11.1-14.7)
[2021-04-07 10:13] LABS: Basophils Absolute Auto 0.1 K/mm3 (0.0-0.1); Basophils Percent Auto 0.7 % (0.2-1.2); Eosinophils Absolute Auto 0.3 K/mm3 (0-0.3); Eosinophils Percent Auto 3.4 % (0-4.4); Hematocrit 43.5 % (42.0-52.0); Hemoglobin 15.1 g/dL (14.0-18.0); Immature Granulocyte Absolute 0.02 K/mm3 (0.00-0.031); Immature Granulocyte Percent A 0.2 % (0-0.5); Lymphocytes Absolute Auto 2.25 K/mm3 (0.9-3.2); Mean Corpuscular HGB Conc 34.7 g/dl (32-36); Mean Corpuscular Hemoglobin 32.6 pg (26-34); Monocytes Absolute Auto 0.8 K/mm3 (0.1-0.6); Monocytes Percent Auto 8.4 % (2.6-8.5); Neutrophils Absolute Auto 5.6 K/mm3 (1.3-6.7); Neutrophils Percent Auto 62.3 % (45.5-73.1); Platelet Count Result 172 k/mm3 (150-375); Red Blood Count 4.63 M/mm3 (4.6-6.20); Red Cell Distribution Width 13.2 % (11.5-14.5)
== END 2021-04-07 09:21 | disposition home or self-care (01) ==
PROVIDERS: Radiology Diagnostic Radiology; PCP Internal Medicine; Visit Provider Internal Medicine Hematology & Oncology
DX: C43.59 Malignant melanoma of other part of trunk (principal)
CPT/HCPCS: 36415; 85025; 85610

== ENCOUNTER 2021-04-11 10:20 | Outpatient (CLI) | payer BC, SELFPAY ==
[2021-04-11] VITALS (11 sets, daily range): BP systolic 136–175; BP diastolic 77–95; PULSE 52–60; RESP 18–19; O2SAT 96–100
--- NOTE | ~2021-04-11 | CT_ITS ---
EXAMINATION: CT biopsy abdomen percutaneous DATE: 04/11/2021 12:59 INDICATION: Melanoma of the trunk with new left adrenal mass. TECHNIQUE: The procedure including the risks and benefits was discussed with the patient. Risks discu ssed included bleeding, infection and allergic reaction. The patient understood the risks and agreed to proceed. The skin overlying the posterior left paraspinal upper abdomen was prepped and draped in usual sterile fashion. Anesthetic was administered with 1% lidocaine subcutaneously. A [address] needle was advanced under CT guidance to the lesion of interest. An 20 gauge core biopsy needle w as then advanced into the lesion. 7 core biopsy specimens were obtained. The outer needle was removed and the entry site was cleaned and dressed. There were no immediate complications. The dose-length product was 807.09 mGy-cm. FINDINGS: CT images demonstrate the outer needle tip at the posterior margin of the left adrenal mass of concern. With the final 4 cores, blackish leyva tissue was obtained. IMPRESSION: 1. Successful CT-guided biopsy of a 3.3 cm left adrenal mass of concern which yielded blackish pigmen rizwana tissue suggesting melanoma. Follow-up with pending pathology report. Reviewed, dictated and finalized at location A. IMPRESSION: 1. Successful CT-guided biopsy of a 3.3 cm left adrenal mass of concern which y ielded blackish pigmented tissue suggesting melanoma. Follow-up with pending pa thology report.
== END 2021-04-11 16:30 | disposition home or self-care (01) ==
PROVIDERS: Radiology Diagnostic Radiology; PCP Internal Medicine; Visit Provider Internal Medicine Hematology & Oncology
DX: C43.59 Malignant melanoma of other part of trunk (principal)
CPT/HCPCS: 49180; 77012; 88305; 88342

== ENCOUNTER 2021-05-08 02:10 | Day surgery (SDC) | payer BC, SELFPAY ==
--- NOTE | 2021-05-06 16:34 | PM.SD2 ---
Same Day Admit/Disch: HPI History of Present Illness Chief complaint: Melanoma of the Trunk Narrative: Savage Lebron is a 60 year old male with advanced melanoma of the trunk. He has been recommended to have immunotherapy by Medical Oncology. He is taken to surgery now for placement of a Port-A-Cath for this purpose. [facility] Past Medical History Medical History BMI 29.0-29.9,adult Hypertension Malignant melanoma of upper back Osteoporosis Skin cancer Tobacco abuse Surgical History Surgical History History of appendectomy History of surgical removal of skin lesion Excision of 4 cm back mass Status post surgical removal of malignant neoplasm of skin Family History Family History Sibling Hypertension Father Colon cancer Social History Social History Smoking packs per day: 1.0 Smoking cigarettes per day: 20.0 Years smoked: 40.00 Smoking pack-years: 40.00 Smoking status: Current every day smoker Tobacco type: cigarettes Alcohol intake: current Drinks per week: 21 Alcohol use details: 2-3 beers per night Substance use: current Substance use type: marijuana Other substance usage details: USES 3-4 TIMES A WEEK Last use: 08/04/2020 Living arrangements: with family 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 Gender identity (if verbalized by the patient): Male Spiritual care concerns: No Same Day Admit/Disch: Med Pre-admit Medications Home Medications Medication Instructions Recorded Confirmed Type triamterene 37.5 1 cap PO DAILY 08/24/19 05/08/21 History mg-hydrochlorothiazide 25 mg capsule carvedilol 12.5 mg PO BID 08/31/19 05/08/21 History multivitamin 1 tablet PO DAILY 08/31/19 05/08/21 History hydrocodone-acetaminophen 1 tablet PO DAILY PRN 04/01/21 05/08/21 History meloxicam 15 mg PO DAILY 04/01/21 05/08/21 History hydrocodone-acetaminophen 1 - 2 tablet PO Q6H PRN #15 tablet 05/08/21 Rx Exam Const: General: comfortable, no acute distress, alert and awake HENMT: Head: normocephalic and atraumatic Mouth: Yes Normal oral and palatal mucosa present Eyes: Conjunctivae: conjunctivae normal Pupils: Equal, round and reactive pupils present EOM: EOMs intact bilaterally Neck: Neck: normal visual inspection, no lymphadenopathy and nontender Resp: Effort & Inspection: normal respiratory effort Auscultation: clear to auscultation bilaterally Cardio: Rate: regular rate Rhythm: regular rhythm Heart sounds: no gallops, no murmurs and no rubs GI: Inspection: non-distended GI Palp: Yes Soft to palpation, No Tenderness to palpation present (GI), No Hepatomegaly present and No Splenomegaly present Back/Spine/Pelvis: Back: No mass and other (Large scar upper mid back just below neck) Skin: General skin exam: normal color Rashes: no rashes Neuro: General: no focal motor deficits and CN's II-XI intact bilaterally Cranial nerves: Yes Equal, round and reactive pupils present, Yes Bilaterally intact EOM present, Yes facial symmetry and Yes Midline tongue present Speech: normal speech Motor exam (neuro): 5/5 motor strength present throughout and Motor abnormalities not present Extrem: General: no clubbing, cyanosis or edema and edema Psych: Affect: normal affect Thought process: Normal thought process present Insight: Good insight present (Psych) DS: Summary Time Spent with Patient Time attestation: Total time spent providing and/or coordinating discharge services: DS: Admitting Diagnosis Admitting Diagnosis Advanced and metastatic melanoma-- Recommended to proceed with immunotherapy but needs vascular access. adrenal metastases smoker essential hypertension inadequate venous access for chemotherapy-- plan to place Port-A
[2021-05-06 17:32] VITALS: BMI 29.2
--- NOTE | 2021-05-07 13:58 | P.PNAN_ITS ---
Anes - Initial Pre Proc Eval Procedure: Operation Date: 05/08/21 14:00 Proposed Procedures p Port Placement - Paul Dickens MD Date/Time: 05/07/21 13:58 Surgeon: Paul Dickens MD Pre Op Diagnosis: Melanoma of the Trunk Patient Data Age: 60 Gender: M Height: 1.75 m Weight: 89.81 kg Allergies Allergy/AdvReac Type Severity Reaction Status Date / Time No Known Allergies Allergy Verified 05/08/21 12:16 Home Medications Medication Instructions Recorded Confirmed Type triamterene 37.5 1 cap PO DAILY 08/24/19 05/06/21 History mg-hydrochlorothiazide 25 mg capsule carvedilol 12.5 mg PO BID 08/31/19 05/06/21 History multivitamin 1 tablet PO DAILY 08/31/19 05/06/21 History hydrocodone-acetaminophen 1 tablet PO DAILY PRN 04/01/21 05/06/21 History meloxicam 15 mg PO DAILY 04/01/21 05/06/21 History Patient hx anesthesia problems: none Family hx anesthesia problems: none PMFSH Past Medical History Medical History (Updated 05/07/21 @ 13:59 by Chino Roberts MD) BMI 29.0-29.9,adult Hypertension Malignant melanoma of upper back Osteoporosis Skin cancer Tobacco abuse Surgical History Surgical History History of appendectomy History of surgical removal of skin lesion Excision of 4 cm back mass Status post surgical removal of malignant neoplasm of skin Family History Family History Sibling Hypertension Father Colon cancer Social History Social History Smoking packs per day: 1.0 Smoking cigarettes per day: 20.0 Years smoked: 40.00 Smoking pack-years: 40.00 Smoking status: Current every day smoker Tobacco type: cigarettes Alcohol intake: current Drinks per week: 21 Alcohol use details: 2-3 beers per night Substance use: current Substance use type: marijuana Other substance usage details: USES 3-4 TIMES A WEEK Last use: 08/04/2020 Living arrangements: with family 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 Questions were solicited and answers provided to the satisfaction of the patient/family/POA.
--- NOTE | ~2021-05-08 | XR_ITS ---
EXAMINATION: XR fl guide central line place DATE: 05/08/2021 14:19 INDICATION: Left subclavian central venous port catheter placement TECHNIQUE: Single fluoroscopic spot image of the left upper chest was obtained during procedure perfo rmed by Dr. Dickens. Radiologist was not present for the imaging or procedure. The amount of fluoroscopy time used during this procedure was 0.7 minutes. COMPARISON: 12/31/2020 FINDINGS: Partially visualized left subclavian central venous port catheter which extends towards the superior vena cava and beyond the margins of the [id number]. A wire and hemostat also project over the uppe r chest. Visualized portion of the left upper lung zone appears clear with no pneumothorax. IMPRESSION: 1. Fluoroscopy utilized during placement of a left subclavian central venous port catheter. See proce dure note for further detail. Reviewed, dictated and finalized at location B. IMPRESSION: 1. Fluoroscopy utilized during placement of a left subclavian central venous po rt catheter. See procedure note for further detail.
--- NOTE | ~2021-05-08 | XR_ITS ---
EXAMINATION: XR chest port-a-cath/central DATE: 05/08/2021 14:40 INDICATION: Status post port catheter placement TECHNIQUE: frontal view of the chest was obtained. COMPARISON: Chest radiograph dated 12/31/20 FINDINGS: Left subclavian central venous port catheter with distal tip at the caudal superior vena cava. Minima l streaky atelectasis at the bilateral lung bases. No other airspace opacities, pulmonary edema, pleu ral effusion or pneumothorax. The cardiomediastinal silhouette is normal. Mild lower thoracic levocur vature with moderate spondylosis and a few lower thoracic mild compression fractures. IMPRESSION: 1. Left subclavian central venous port catheter in expected position. 2. Minimal streaky bibasilar atelectasis. No other acute cardiopulmonary disease. Reviewed, dictated and finalized at location B. IMPRESSION: 1. Left subclavian central venous port catheter in expected position. 2. Minimal streaky bibasilar atelectasis. No other acute cardiopulmonary diseas e.
[2021-05-08 12:11] VITALS: BP 140/69; PULSE 58; RESP 16; TEMP 36.3; O2SAT 99
[2021-05-08] MEDS: LACTATED RINGERS 1,000 ML 30 ML IV CONT (12:37)
[2021-05-08] MEDS: KETOROLAC 15 MG/ML VIAL (*BKC) IV PUSH (12:39)
[2021-05-08 13:10] LABS: Partial Thromboplastin Time 30.9 SECONDS (22.3-36.8)
--- NOTE | 2021-05-08 13:11 | WPDHPUPDATE1 ---
History and Physical Update Update Date/Time: 05/08/21 13:11 History and Physical has been reviewed, including an updated exam of the patient. There are NO changes in the patient's condition. Risks, benefits, and alternatives have been discussed and questions answered. Patient agrees to proceed with procedure.
--- NOTE | 2021-05-08 13:17 | P.OP_ITS ---
Procedure Note - Detailed Date of Procedure 05/08/21 Pre-op Diagnosis Melanoma of the Trunk, inadequate venous access for chemotherapy Post-op Diagnosis same Procedure Performed Placement left subclavian vortex Port-A-Cath under fluoroscopy Surgeon Paul Dickens MD Electroencephalographic Technologist Courtney BOOGIEA Anesthesia MAC and local (0.25% Marcaine with epinephrine) Indications Needs vascular access for immunotherapy. Patient has metastatic malignant melanoma Findings Catheter tip was in the distals SVC near the right atrial junction Description of Procedure Patient was taken to surgery and IV sedation was administered. The left subclavian and left neck areas were prepped and draped. The proposed incision was marked on the skin under the left clavicle. Local anesthesia was infiltrated in the area of the anticipated incision and in the deeper subcutaneous tissues. Incision was made dissection was carried down through the subcutaneous and through the pectoralis major fascia. A subfascial pocket was then created. Cautery was used to achieve good hemostasis. I then infiltrated local under the left clavicle in the area of the subclavian vein. The left subclavian vein was then cannulated. A guidewire was able to be passed into the superior vena cava which was verified by C-arm fluoroscopy. I used the guidewire to measure the length of tubing that would be needed with the Port-A-Cath. The tubing was cut to the appropriate length. The introducer and sleeve were passed over the guidewire. The guidewire and introducer were removed. The Port-A-Cath tubing was passed through the sleeve and into the distal superior vena cava. The sleeve was then removed. Using fluoroscopy, the tip of the guidewire was in good position in the distal SVC near the atrial junction. The Port-A-Cath was checked and aspirated blood and flushed easily with heparin. It was placed in the pocket and sutured in position with 2-0 silk. I rechecked the Port-A-Cath again. It aspirated blood and flushed very easily. A final flush was administered. We then closed the wound in layers with 2-0 Vicryl suture. The skin was closed with running 4-0 Monocryl skin suture. The wound was dressed with Exofin surgical adhesive. Patient was awakened and taken to outpatient recovery in good condition. Counts were correct x2. Estimated Blood Loss 5 Drains No Packing No Pathology none sent Complications No immediate complications Condition stable Disposition same day
[2021-05-08] MEDS: ceFAZolin 2 GM/D5W 50 ML 2 GM/50 ML BAG IVPB (13:37)
[2021-05-08] MEDS: BUPIVACAINE/EPINEPHRINE 0.25% 10 ML VIAL 60 ML INFILTRATE (14:03)
[2021-05-08] MEDS: HEPARIN SODIUM 1,000 UNITS/ML VIAL 1000 UNITS IV PUSH (14:11)
[2021-05-08 14:29] VITALS: BP 127/79; PULSE 60; RESP 16; O2SAT 96
--- NOTE | 2021-05-08 14:32 | SUR.PHASEII ---
PORTABLE CXR DONE.
[2021-05-08 14:55] VITALS: BP 127/69; PULSE 66; RESP 16; O2SAT 96
== END 2021-05-08 15:20 | disposition home or self-care (01) ==
PROVIDERS: Referring Provider Internal Medicine Hematology & Oncology; Visit Provider Surgery
PROC: (CPT 36561; principal; 2021-05-08 14:00)
DX: C43.59 Malignant melanoma of other part of trunk (principal); I10 Essential (primary) hypertension; M81.0 Age-related osteoporosis without current pathological fracture; F17.210 Nicotine dependence, cigarettes, uncomplicated; F12.90 Cannabis use, unspecified, uncomplicated
CPT/HCPCS: 36561; 36415; 77001; 85730; C1788; J0690; J1644; J1885; J2250; J2405; J2704; J3010; J7120

== ENCOUNTER 2021-08-06 09:33 | Outpatient (CLI) | payer BC, SELFPAY ==
--- NOTE | ~2021-08-06 | CT_ITS ---
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 The dose-length product was 1163.88 mGy-cm. Automated exposure control and iterative reconstruction technique were employed. COMPARISON: CT dated 03/25/2021 FINDINGS: CHEST CT: Stable borderline size mediastinal lymph nodes, likely reactive. No significant pleural or pericardia l effusion. Heart size is normal. No axillary lymphadenopathy. There is atherosclerosis of the aorta and coronary arteries. There is a 4 mm right upper lobe nodule, image 39, not definitely seen on prio r examination. There is a 3 mm subsolid nodule right upper lobe, image 44, also not definitely seen o n prior study. Stable 3 mm nodule right upper lobe, image 50. No endobronchial lesions. New 6 mm left upper lobe nodule, image 47. There are calcified granulomas of the left lower lobe. There is a stabl e 7 mm left lower lobe nodule, image 88. Slight increased size of 11 mm left lower lobe nodule, image 94. No focal airspace consolidation. ABDOMEN/PELVIS CT: Subtle low density lesion in the right hepatic lobe, likely benign cyst or hemangioma. There are calc ified granulomas of the spleen. Increased size of left adrenal mass measuring 3.6 x 3.4 cm compared w ith 3.1 x 3 cm on prior examination. There is fatty stranding surrounding the adrenal mass. Nonobstru cting left renal stones versus vascular calcifications. Gallbladder is present. Pancreas within kristofer l limits. Right adrenal gland is unremarkable. There are multiple retroperitoneal/periaortic lymph no kenney in the upper abdomen which are abnormal in number if not size. There are portacaval lymph nodes w hich are abnormal., Largest measures 2.1 cm. There are small lymph nodes along the lesser curvature o f the stomach. There is an accessory splenule. There is a healing right posterior 11th rib fracture. Portacatheter tip in the SVC. No focal lytic or blastic lesions of the osseous structures. IMPRESSION: 1. Slightly increased number and size of bilateral pulmonary nodules, largest in the left lower lobe measuring 11 mm, concerning for metastatic disease. Consider correlation with pet/CT scan. 2: Increased size of left adrenal mass, likely metastatic disease. 3: Mild abdominal lymphadenopathy, concerning for metastatic disease. 4: Healing right posterior 11th rib fracture. Reviewed, dictated and finalized at location A. ARCH AND DEVELOPMENT ENGINEER IMPRESSION: 1. Slightly increased number and size of bilateral pulmonary nodules, largest i n the left lower lobe measuring 11 mm, concerning for metastatic disease. Consi gregory correlation with pet/CT scan. 2: Increased size of left adrenal mass, likely metastatic disease. 3: Mild abdominal lymphadenopathy, concerning for metastatic disease. 4: Healing right posterior 11th rib fracture.
== END 2021-08-06 09:34 | disposition home or self-care (01) ==
LOC: ANHIMG 09:36
PROVIDERS: PCP Internal Medicine; Visit Provider Internal Medicine Hematology & Oncology
DX: C79.9 Secondary malignant neoplasm of unspecified site (principal); R91.8 Other nonspecific abnormal finding of lung field; E27.9 Disorder of adrenal gland, unspecified; R59.0 Localized enlarged lymph nodes; S22.31XD Fracture of one rib, right side, subsequent encounter for fracture with routine healing
CPT/HCPCS: 71260; 74177; Q9967

== ENCOUNTER 2021-09-18 09:29 | Outpatient (CLI) | payer BC, SELFPAY ==
[2021-09-18 09:57] LABS: Basophils Absolute Auto 0.13 K/mm3 (0.00-0.10); Basophils Percent Auto 0.9 % (0.0-1.0); Eosinophils Absolute Auto 0.37 K/mm3 (0.02-0.50); Eosinophils Percent Auto 2.7 % (1.0-6.0); Hematocrit 45.6 % (40.0-54.0); Hemoglobin 16.4 g/dL (14.0-18.0); Immature Granulocyte Absolute 0.05 K/mm3 (0.00-0.00); Immature Granulocyte Percent A 0.4 % (0.0-0.0); Lymphocytes Absolute Auto 1.75 K/mm3 (1.10-4.50); Lymphocytes Percent Auto 12.7 % (18.0-42.0); Mean Corpuscular Hemoglobin 32.9 pg (27.0-31.0); Mean Corpuscular Volume 91.4 fL (78.0-102.0); Mean Platelet Volume 9.4 fl (8.7-11.0); Monocytes Absolute Auto 1.59 K/mm3 (0.10-0.90); Monocytes Percent Auto 11.6 % (2.0-11.0); Neutrophils Absolute Auto 9.9 K/mm3 (1.7-7.2); Neutrophils Percent Auto 71.7 % (50.0-70.0); Platelet Count Result 399 K/mm3 (150-420); Red Blood Count 4.99 M/mm3 (4.70-6.10); White Blood Count 13.8 K/mm3 (4.8-10.8)
[2021-09-18 11:31] LABS: Alanine Aminotransferase 24 U/L (16-63); Albumin Level 4.1 g/dL (3.4-5.0); Alkaline Phosphatase 129 U/L (46-116); Anion Gap 18 mmol/L (8-16); Aspartate Amino Transferase 14 U/L (15-37); Bilirubin,Total 0.4 mg/dL (0.00-1.00); Blood Urea Nitrogen 42 mg/dL (7-18); CRP 3.3 mg/dL (0.0-0.9); Calcium 10.9 mg/dL (8.5-10.1); Carbon Dioxide 22 mmol/L (21-32); Chloride 95 mmol/L (98-108); Estimated Glomerular Filt Rate 12; Glucose 114 mg/dL (70-99); Osmolality Calculated 291 mOsm/kg (285-295); Potassium 3.7 mmol/L (3.5-5.1); Sodium 135 mmol/L (136-145); Total Protein 8.8 g/dL (6.4-8.2)
[2021-09-22 14:54] LABS: Cortisol Random 38.6 mcg/dL (***)
== END 2021-09-18 09:30 | disposition home or self-care (01) ==
LOC: CHSLAB 09:31
PROVIDERS: PCP Internal Medicine; Visit Provider Internal Medicine
DX: C79.9 Secondary malignant neoplasm of unspecified site (principal); R19.7 Diarrhea, unspecified; R63.4 Abnormal weight loss
CPT/HCPCS: 36415; 80053; 82533; 84443; 85025; 86140; 87045; 87177; 87209; 87324; 87427

== ENCOUNTER 2021-09-18 13:54 | Inpatient (IN) | payer BC, SELFPAY ==
--- NOTE | ~2021-09-18 | CT_ITS ---
EXAMINATION: CT chest abdomen pelvis wo con DATE: 09/18/2021 14:41 INDICATION: Cough, shortness of breath, nausea, vomiting and diarrhea. TECHNIQUE: Computed tomography (CT) of the chest, abdomen, and pelvis was performed without intraveno us contrast. Automated exposure control and iterative reconstruction technique were employed. The dos e-length product was 837.14 mGy-cm. COMPARISON: 08/06/2021 FINDINGS: CHEST CT: Calcified left lower lobe nodules as well as calcified left hilar lymph nodes consistent with old gra nulomatous disease. Approximately 1.2 cm groundglass ringlike opacity at the junction of the posterio r left upper lobe and lingula at the site of a tiny chronic calcified nodule. Unchanged 11 mm and 8 m m left lower lobe nodules. Interval resolution of the small groundglass component surrounding a resid ual 2 mm solid nodule in the right upper lobe. Unchanged 3 mm subtle solid right upper lobe nodule on image 47. Unchanged 6 mm left upper lobe nodule on image 38. No new or enlarging pulmonary nodules, pneumonia, pulmonary edema or pleural effusion. Heart size is normal. Atherosclerotic coronary artery calcification. No pericardial effusion. No interval change in a few mildly prominent but still kristofer l-sized mediastinal lymph nodes most notably along the distal descending thoracic aorta which could b e either reactive or metastatic. Left subclavian central venous port catheter with distal tip at the caudal superior vena cava. Moderate thoracic spondylosis with chronic mild anterior wedging of a few lower thoracic vertebral bodies. Chronic ununited posterior right 11th rib fracture. No suspicious ly tic or blastic bone lesions. ABDOMEN/PELVIS CT: Liver, gallbladder, pancreas and right adrenal gland are normal. However increase in size of a previo usly 3.6 cm, now 4.1 cm left adrenal mass consistent with metastatic disease. Multiple splenic calcif ic lesions consistent with old granulomatous disease. Small fat-containing umbilical hernia. Fluid th roughout the colon consistent with diarrhea. No dilated bowel to suggest obstruction. Decompressed bl adder is normal. No free intraperitoneal gas or fluid. Several mildly prominent but still normal-size d retroperitoneal lymph nodes which could be reactive or metastatic. No definitively pathologically e nlarged abdominal or pelvic lymphadenopathy. There is calcified atherosclerosis of the aorta and many of the other arteries. Separate origins of the common hepatic and splenic arteries. Mild lumbar dext rocurvature with moderate to severe spondylosis. No suspicious lytic or blastic bone lesions. IMPRESSION: 1. Interval increase in size of a now 4.1 cm left adrenal mass consistent with biopsy-proven metastat ic melanoma. 2. No interval change in several solid pulmonary nodules, the largest measuring 7 mm and 11 mm in the left lower lobe concerning for additional metastatic disease. 3. New 1.2 cm diameter ringlike groundglass opacity at the junction of the lingula and left upper lob e most likely infectious/inflammatory in etiology. 4. Diffuse fluid throughout the colon consistent with nonspecific diarrhea. Chronic clinically for ga stroenteritis. 5. Unchanged mild mediastinal and retroperitoneal lymphadenopathy which could be either reactive or m etastatic. Reviewed, dictated and finalized at location B. WORKER INTAKE IMPRESSION: 1. Interval increase in size of a now 4.1 cm left adrenal mass consistent with biopsy-proven metastatic melanoma. 2. No interval change in several solid pulmonary nodules, the largest measuring 7 mm and 11 mm in the left lower lobe concerning for additional metastatic dis ease. 3. New 1.2 cm diameter ringlike groundglass opacity at the junction of the ling clarissa and left upper lobe most likely infectious/inf
--- NOTE | ~2021-09-18 | XR_ITS ---
EXAMINATION: XR chest 2V EXAM DATE: 09/23/2021 14:53 INDICATION: elevated wbc, diarrhea . TECHNIQUE: Frontal and lateral projections of the chest obtained and reviewed. Comparison is made to prior examination from 05/08/2021. FINDINGS: There is a portacatheter. The lungs are clear. There are no pleural effusions. The cardi omediastinal silhouette is within normal limits. There is no pneumothorax suspected. The bones and soft tissues are unremarkable. IMPRESSION: No acute cardiopulmonary findings. Reviewed, dictated and finalized at location A. ERY PAIRER
--- NOTE | ~2021-09-18 | US_ITS ---
EXAMINATION: US retroperitoneal duplex ltd DATE: 09/19/2021 08:35 INDICATION: Hypertension. Renal failure. Metastases to the adrenal glands. TECHNIQUE: Multiple grayscale, color Doppler, and pulsed Doppler images of the kidneys and renal shelley patito were obtained. COMPARISON: None. FINDINGS: The aorta peak systolic velocity is 109 cm/s. The right renal artery peak systolic velocity is 58 cm/ s in the proximal segment, 64 cm/s in the mid segment, and 43 cm/s in the distal segment. The left re nal artery peak systolic velocity is 56 cm/s in the proximal segment, 33 cm/s in the mid segment, and 53 cm/s in the distal segment. IMPRESSION: 1. No Doppler evidence of renal artery stenosis. Reviewed, dictated and finalized at location B. [employer]
[2021-09-18 14:10] VITALS: BP 131/94; PULSE 90; RESP 16; TEMP 35.8; O2SAT 97
[2021-09-18 14:57] LABS: Lactic Acid Reflex 1.1 mmol/L (0.4-2.0)
[2021-09-18] MEDS: SODIUM CHLORIDE 0.9% IV 1,000 ML 999 ML IV CONT (15:04)
[2021-09-18 15:12] VITALS: BP 138/92; PULSE 82; RESP 20; O2SAT 97
[2021-09-18] MEDS: PANTOPRAZOLE SODIUM IV 40 MG VIAL IV PUSH (15:12)
--- NOTE | 2021-09-18 15:33 | ED.GENADULT ---
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 Onset (ago): day(s) Severity: moderate Related Data Home Medications Medication Instructions Recorded Confirmed triamterene 37.5 1 cap PO DAILY 08/24/19 09/10/21 mg-hydrochlorothiazide 25 mg capsule carvedilol 12.5 mg PO BID 08/31/19 09/10/21 multivitamin 1 tablet PO DAILY 08/31/19 09/10/21 hydrocodone-acetaminophen 1 tablet PO DAILY PRN 04/01/21 09/10/21 meloxicam 15 mg PO DAILY 04/01/21 09/10/21 aspirin 325 mg PO DAILY 07/23/21 09/10/21 Allergies Allergy/AdvReac Type Severity Reaction Status Date / Time No Known Allergies Allergy Verified 09/10/21 08:54 Review of Systems Review of Systems: All systems reviewed & are unremarkable except as noted in HPI and below PMFSH Past Medical History Medical History BMI 29.0-29.9,adult Hypertension Malignant melanoma of upper back Osteoporosis Skin cancer Tobacco abuse Surgical History Surgical History History of appendectomy History of surgical removal of skin lesion Excision of 4 cm back mass Status post surgical removal of malignant neoplasm of skin Family History Family History Sibling Hypertension Father Colon cancer Social History Social History Smoking packs per day: 1 Smoking cigarettes per day: 20.0 Years smoked: 40 Smoking pack-years: 40.00 Smoking status: Current every day smoker Tobacco type: cigarettes Alcohol intake: current Drinks per week: 21 Alcohol use details: 2-3 beers per night Substance use: current Substance use type: marijuana Other substance usage details: USES 3-4 TIMES A WEEK Last use: 08/04/2020 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 Gender identity (if verbalized by the patient): Male Spiritual care concerns: No Exam Const: General: no acute distress and alert Orientation/consciousness: patient oriented x3 HENMT: Head: normal to inspection Eyes: Conjunctivae: conjunctivae normal Pupils: Equal, round and reactive pupils present Direct Ophthalmoscopy: no photophobia Neck: Neck: normal visual inspection, no lymphadenopathy and no meningeal signs Chest: Chest palpation & inspection: normal inspection of the chest Resp: Effort & Inspection: normal respiratory effort Auscultation: clear to auscultation bilaterally Cardio: Rate: regular rate Rhythm: regular rhythm GI: GI Palp: Yes Soft to palpation Percussion: Yes normal to percussion : Testes: Testes normal Urinary Catheter: Urinary Catheter: patent and draining Back/Spine/Pelvis: Back: no CVA tenderness Skin: General skin exam: normal color Rashes: no rashes Neuro: General: patient oriented x3, moves all extremities and no meningeal signs Extrem: General: normal to inspection and no pedal edema Psych: Mental Status: mental status grossly normal Affect: normal affect Attitude: cooperative Course Course Emergency Course: CT scan and blood work reviewed with patient and after discussion with his primary care physician chris
[2021-09-18 16:40] VITALS: O2SAT 96; BMI 27.2
--- NOTE | 2021-09-18 16:40 | ADMGEN ---
This patient, Savage Lebron, was admitted to 2nd Floor Room 226-2 for Acute kidney injury. Patient/family oriented to hospital policies and general routines including ID bracelet, bed and alarms, visiting hours, pain management, procedures, bathroom and other care routines, personal items, smoking policy, room service/diet, and visiting hours. Information on how to activate the Rapid Response Team has been discussed. Patient/Family are encouraged to report perceived risks to care and to ask questions if they do not understand what they are told or what they should do.
[2021-09-18 16:43] LABS: Appearance Urine Clear (Clear); Bilirubin Urine 1+ (Negative); Color Urine Yellow (Yellow); Glucose Urine UA Negative (Negative); Ketones Urine Trace (Negative); Leukocyte Esterase Ur Negative (Negative); Nitrate Urine Negative (Negative); Protein Urine 2+ (Negative); Specific Grav Ur >= 1.030 (1.010-1.020); Urobilinogen Urine 0.2 mg/dL (0.2-1.0)
--- NOTE | 2021-09-18 16:44 | PC.NURSE ---
IV NS bolus still infusing around 300mL left when transported to floor.
[2021-09-18 16:45] VITALS: BP 143/98; PULSE 83; RESP 18; TEMP 36.1; O2SAT 96
[2021-09-18 16:51] LABS: Add Urine Microscopic? YES; Blood Urine Trace-Intact (Negative); RBC Urine 0-2 /hpf (0-2); WBC Urine 0-3 /hpf (0-3)
[2021-09-18 16:52] LABS: Amorphous Sediment Urine Heavy; Bacteria Urine Trace /hpf
[2021-09-18] MEDS: SODIUM CHLORIDE 0.9% IV 1,000 ML 100 ML IV CONT (18:00)
--- NOTE | 2021-09-18 18:39 | PM.IMHP ---
H&P: HPI History of Present Illness Date/Time: 09/18/21 18:39 Savage Lebron is a 61 year old male who is being admitted under Observation for Hypercalcemia 10.9, ARF, Dehydration. Per ER report Pt was sent to the ER after blood work showed elevated creatinine and calcium, as well as a WBC of 13. Pt states that for the past 3-4 days he had diarrhea about 20 times per day then for the last 3 days he had vomiting 1 time per day. The diarrhea improved after taking Pepto to about 8 times per day. Vomiting occurred once again after being admitted when he was coughing after taking a drink of water. Pt does not recall eating anything undercooked. The last meal he had was chicken soup. Pt states he has been treated for a Melanoma about 1 year ago and this ended up causing an adrenal adenoma and is currently on immunotherapy that started about 5 months ago. Pt denies any LOC or incontinent episodes. He admits to one episode of muscle cramps and muscle weakness. Pt denies CP, SOB, Nausea, fever, chills. Chief Complaint: Vomiting, Diarrhea Review of Systems Constitutional: Constitutional: Reports as per HPI, Denies body ache(s), Denies chills, Denies fever(s) and Reports weakness Eyes: Eyes: Reports no additional eye complaints ENT: Comments: increased thirst Cardiovascular: Cardiovascular: Reports no additional cardiovascular complaints, Denies chest pain, Denies chest pain at rest and Denies chest pain with activity Respiratory: Respiratory: Reports no additional respiratory complaints, Denies cough, Denies dyspnea and Denies dyspnea on exertion Gastrointestinal: Gastrointestinal: Denies abdominal pain, Denies nausea and Reports vomiting Genitourinary: Genitourinary: Reports no additional male genitourinary complaints Musculoskeletal: Musculoskeletal: Reports as per HPI, Reports muscle cramps (once) and Reports muscle weakness Integumentary/Breasts: Skin/Breast: Reports as per HPI Neurologic: Reports system reviewed and no additional complaints, except as documented Psychiatric: Psychiatric: Reports no additional psychiatric complaints Endocrine: Endocrine: Reports no additional endocrine complaints [facility] Past Medical History Medical History BMI 29.0-29.9,adult Hypertension Malignant melanoma of upper back Osteoporosis Skin cancer Tobacco abuse Surgical History Surgical History History of appendectomy History of surgical removal of skin lesion Excision of 4 cm back mass Status post surgical removal of malignant neoplasm of skin Family History Family History Sibling Hypertension Father Colon cancer Social History Social History Smoking packs per day: 1 Smoking cigarettes per day: 20.0 Years smoked: 40 Smoking pack-years: 40.00 Smoking status: Current every day smoker Tobacco type: cigarettes Alcohol intake: current Drinks per week: 21 Alcohol use details: 2-3 beers per night Substance use: current Substance use type: marijuana Other substance usage details: USES 3-4 TIMES A WEEK Last use: 08/04/2020 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
--- NOTE | 2021-09-18 19:44 | PC.NURSE ---
Pt whiteboard updated. Pt is sleeping on his left side with the bed in lowest position for pt safety and the call light within reach.
[2021-09-18 20:59] VITALS: PULSE 82
[2021-09-18] MEDS: carvediloL 12.5 MG TABLET PO (20:59)
[2021-09-18] MEDS: ONDANSETRON INJ 4 MG/2 ML VIAL IV PUSH (21:07)
--- NOTE | 2021-09-18 22:27 | PC.NURSE ---
Pt's trash emptied and replaced at this time. Pt was laying in bed watching TV. 550 ml of fresh ice water was brought to pt. Pt is in pleasant mood and has the call light within reach.
[2021-09-18 23:02] VITALS: BP 138/84; PULSE 78; RESP 19; TEMP 36.9; O2SAT 96
--- NOTE | 2021-09-19 00:27 | PC.NURSE ---
Pt rounding complete. Pt is sleeping on his left side with the bed in lowest position for pt safety and the call light within reach.
--- NOTE | 2021-09-19 02:44 | PC.NURSE ---
Pt rounding complete. Pt is sleeping on his right side with the call light within reach.
[2021-09-19] MEDS: SODIUM CHLORIDE 0.9% IV 1,000 ML 100 ML IV CONT (04:06)
[2021-09-19 05:22] LABS: Basophils Absolute Auto 0.09 K/mm3 (0.00-0.10); Basophils Percent Auto 0.8 % (0.0-1.0); Eosinophils Percent Auto 3.4 % (1.0-6.0); Hematocrit 37.8 % (40.0-54.0); Hemoglobin 13.3 g/dL (14.0-18.0); Immature Granulocyte Absolute 0.08 K/mm3 (0.00-0.00); Immature Granulocyte Percent A 0.7 % (0.0-0.0); Lymphocytes Absolute Auto 1.82 K/mm3 (1.10-4.50); Lymphocytes Percent Auto 15.2 % (18.0-42.0); Mean Corpuscular HGB Conc 35.2 g/dL (32.0-36.0); Mean Corpuscular Volume 90.9 fL (78.0-102.0); Mean Platelet Volume 9.5 fl (8.7-11.0); Monocytes Absolute Auto 1.78 K/mm3 (0.10-0.90); Monocytes Percent Auto 14.9 % (2.0-11.0); Neutrophils Absolute Auto 7.8 K/mm3 (1.7-7.2); Platelet Count Result 327 K/mm3 (150-420); Red Blood Count 4.16 M/mm3 (4.70-6.10); Red Cell Distribution Width 12.9 % (11.6-14.4); White Blood Count 11.9 K/mm3 (4.8-10.8)
[2021-09-19 05:41] LABS: Alanine Aminotransferase 19 U/L (16-63); Albumin Level 3.1 g/dL (3.4-5.0); Alkaline Phosphatase 96 U/L (46-116); Anion Gap 18 mmol/L (8-16); Aspartate Amino Transferase < 10 U/L (15-37); Bilirubin,Total 0.3 mg/dL (0.00-1.00); Blood Urea Nitrogen 54 mg/dL (7-18); Carbon Dioxide 20 mmol/L (21-32); Chloride 98 mmol/L (98-108); Estimated CRCL calculation 11 ml/min; Estimated Glomerular Filt Rate 9; Glucose 96 mg/dL (70-99); Osmolality Calculated 296 mOsm/kg (285-295); Potassium 3.3 mmol/L (3.5-5.1); Sodium 136 mmol/L (136-145); Total Protein 6.6 g/dL (6.4-8.2)
--- NOTE | 2021-09-19 05:45 | PC.NURSE ---
Lab called to report a critical creatinine value of 6.38.
--- NOTE | 2021-09-19 06:41 | PC.NURSE ---
Pt rounding complete. Pt is sleeping on his back with the call light within reach.
[2021-09-19 08:00] VITALS: BP 103/78; PULSE 79; RESP 20; TEMP 36.3; O2SAT 96
[2021-09-19] MEDS: ASPIRIN 325 MG ENTERIC TABLET PO (08:24)
[2021-09-19] MEDS: MULTIVITAMINS THERAPEUTIC TAB (*BKC) 1 TABLET PO (08:24)
[2021-09-19] MEDS: ENOXAPARIN 30 MG/0.3 ML SYRINGE SUB-Q (08:25)
[2021-09-19] MEDS: POTASSIUM CHLORIDE 20 MEQ TABLET PO (08:27)
[2021-09-19] MEDS: NICOTINE (*PBKC) 21 MG PATCH 1 PATCH TRANSDERM (08:31)
[2021-09-19 10:36] VITALS: BP 142/79; PULSE 75
[2021-09-19] MEDS: LOPERAMIDE HCL 2 MG CAPSULE 4 MG PO (10:39)
[2021-09-19] MEDS: SODIUM CHLORIDE 0.9% IV 1,000 ML 999 ML IV CONT (11:00)
--- NOTE | 2021-09-19 11:23 | PC.NURSE ---
REPORT TO GOSIA Guerrero RN
--- NOTE | 2021-09-19 11:25 | PC.NURSE ---
IV in R hand infiltrated. Completion Supervisor attempt x 1 in RAC. Unsuccessful. Completion Supervisor attempted again in LFA, and placed 20G. Pt. tolerated well. Flushes easily. IV fluids running at 50 ml/hr for K+ and 200 ml/hr for NS.
[2021-09-19] MEDS: SODIUM CHLORIDE 0.9% IV 1,000 ML 200 ML IV CONT ×2 (12:32→18:39)
--- NOTE | 2021-09-19 12:36 | PC.NURSE ---
NS bolus completed. NS at 200ml/hr started.
[2021-09-19] MEDS: LOPERAMIDE HCL 2 MG CAPSULE PO ×2 (13:06→15:50)
[2021-09-19 14:36] VITALS: PULSE 74
[2021-09-19 15:53] VITALS: BP 121/69; PULSE 75; RESP 16; TEMP 36.5; O2SAT 98
[2021-09-19 17:33] LABS: Anion Gap 17 mmol/L (8-16); Blood Urea Nitrogen 55 mg/dL (7-18); Calcium 8.5 mg/dL (8.5-10.1); Carbon Dioxide 19 mmol/L (21-32); Chloride 98 mmol/L (98-108); Estimated CRCL calculation 10 ml/min; Estimated Glomerular Filt Rate 8; Glucose 96 mg/dL (70-99); Magnesium 1.4 mg/dL (1.8-2.4); Osmolality Calculated 293 mOsm/kg (285-295); Potassium 2.9 mmol/L (3.5-5.1); Sodium 134 mmol/L (136-145)
[2021-09-19] MEDS: HYDROcodone/acetaminophen (*CRX) 7.5-325 MG TABLET 1 TAB PO (18:48)
--- NOTE | 2021-09-19 19:46 | PM.IMPN ---
Progress Note: A&P Assessment and Plan (1) Acute renal failure: Qualifiers: Acute renal failure type: unspecified Qualified Code(s): N17.9 - Acute kidney failure, unspecified <Carlos WadeLUCA-C - Last Filed: 09/19/21 20:11> Code(s): N17.9 - Acute kidney failure, unspecified <Carlos WadeALVINON-C - Last Filed: 09/19/21 20:11> Status: Acute <Carlos Wade MANAGER DIVERSITY-C - Last Filed: 09/19/21 20:11> Assessment and Plan: BUN 42, 4.96, Calculated CrCl 16.9, eGFR 12, avoid nephrotoxic agents, holding Meloxicam, IVF gentle hydration after 1 L NS bolus in ER now 100/h, Ice chips and sips PO meds okay. 09/19/2021 early this AM Cr ^ 6.38, called Dr. Hobson Pt's Oncologist who gave recommendations, thank you, after an additional bolus of fluids Cr ^ 7.03, I then spoke with Banquet Chef Dr. Barrett who did not have any additional recommendations at this time other than we both agreed to initiate getting Pt on transfer list to higher level of care. As of this time 2005 hours Pt is on a wait list with [facility] <Carlos MarquezKizzy TrujillosorayaLUCA-C - Last Filed: 09/19/21 20:11> (2) Dehydration: Code(s): E86.0 - Dehydration <Carlos Orozco LUCA Wade-C - Last Filed: 09/19/21 20:11> Status: Acute <Carlos Trujillosoraya MANAGER DIVERSITY-C - Last Filed: 09/19/21 20:11> Assessment and Plan: IVF 1 bolus NS in ER and now at 100 ml/h, will monitor fluids, VS 09/19/2021 Pt is about 7 Liters positive <Carlos MarquezKizzy Wade APN-C - Last Filed: 09/19/21 20:11> (3) Hypercalcemia: Code(s): E83.52 - Hypercalcemia <Carlos MaruqezALVINO FoxN-C - Last Filed: 09/19/21 20:11> Status: Inactive <Carlos Marquez. Vogt, MANAGER DIVERSITY-C - Last Filed: 09/19/21 20:11> Assessment and Plan: Ca++ 10.9, will monitor, likely reduced after IVF administration 09/19/2021 corrected after hydration to 8.5 as of 1700 hours <GOKUL Johnson - Last Filed: 09/19/21 20:11> (4) Tobacco abuse: Code(s): Z72.0 - Tobacco use <GOKUL Johnson - Last Filed: 09/19/21 20:11> Status: Acute <GOKUL Johnson - Last Filed: 09/19/21 20:11> Assessment and Plan: Nicotine Patch 21 mg, smoking cessation discussed <GOKUL Johnson - Last Filed: 09/19/21 20:11> Subjective Date/time seen: 09/19/21 19:46 Savage is resting in his bed. He has no complaints of pain. He was quite upset that he did not get his nicotine patch which was due in about an hour. He was quite verbal about leaving AMA. We discussed his renal condition and likely outcome should he decide not to stay in the hospital and that he actually may need to be transferred if his renal function did not improve. Later in the day Renal function did NOT improve. I called his Oncologist who recommended continuation of hydration, repeat BMP which ended up Cr 7.03 an increase, and if elevated to attempt transfer. Knowing that it is very difficult to find a bed in and around the [facility] area I contacted Dr. Almazan, nephrology who understood the bed shortage dilemma. He stated he had no further recommendations at this time. We both agreed to initiate him on wait lists in preparation of the worse while attempting for the best. Pt was made aware. <GOKUL Johnson - Last Filed: 09/19/21 20:11> Review of Systems Review of Systems: All systems reviewed & are unremarkable except as noted in HPI and below <GOKUL Johnson - Last Filed: 09/19/21 20:11> Exam Const: General: cooperative, healthy appearing, comfortable, no acute distress, well developed, alert, awake and Physically active <GOKUL Johnson - Last Filed: 09/19/21 20:11> Nutritional Appearance: average body habitus <GOKUL Johnson - Last Filed: 09/19/21 20:11> Resp: Effort & Inspection: normal respiratory effort and no cough <GOKUL Johnson - Last Filed: 09/19/21 20:11> Auscultation: clear to auscultation bilaterally
[2021-09-19] MEDS: MAGNESIUM SULF 4 GM/WATER100ML 4 GM/100 ML BAG IVPB (20:53)
[2021-09-19 20:55] VITALS: PULSE 77
[2021-09-19] MEDS: carvediloL 12.5 MG TABLET PO (20:55)
[2021-09-19] MEDS: ONDANSETRON HCL ODT 4 MG TABLET PO (20:55)
[2021-09-19] MEDS: POTASSIUM CHLORIDE 20 MEQ TABLET 40 MEQ PO (20:56)
[2021-09-19] MEDS: POTASSIUM CHLORIDE 20 MEQ TABLET 40 MEQ (21:09)
[2021-09-19] MEDS: KCL 20 MEQ/SW 100 ML 100 ML 50 MEQ IVPB (22:09)
[2021-09-20] VITALS (11 sets, daily range): BP systolic 116–130; BP diastolic 66–80; PULSE 62–82; RESP 16–18; TEMP 36.3–37.1; O2SAT 96–97
--- NOTE | 2021-09-20 04:41 | PC.NURSE ---
Patient resting well. Denies needs at this time. Bed in low position for safety.
[2021-09-20 05:25] LABS: Hematocrit 33.8 % (40.0-54.0); Hemoglobin 11.7 g/dL (14.0-18.0); Mean Corpuscular HGB Conc 34.6 g/dL (32.0-36.0); Mean Corpuscular Hemoglobin 31.6 pg (27.0-31.0); Mean Corpuscular Volume 91.4 fL (78.0-102.0); Mean Platelet Volume 9.4 fl (8.7-11.0); Platelet Count Result 283 K/mm3 (150-420); Red Cell Distribution Width 13.1 % (11.6-14.4); White Blood Count 9.4 K/mm3 (4.8-10.8)
[2021-09-20 05:43] LABS: Anion Gap 16 mmol/L (8-16); Blood Urea Nitrogen 55 mg/dL (7-18); Calcium 8.1 mg/dL (8.5-10.1); Carbon Dioxide 16 mmol/L (21-32); Chloride 99 mmol/L (98-108); Estimated CRCL calculation 9 ml/min; Estimated Glomerular Filt Rate 7; Glucose 94 mg/dL (70-99); Osmolality Calculated 287 mOsm/kg (285-295); Potassium 3.2 mmol/L (3.5-5.1); Sodium 131 mmol/L (136-145)
--- NOTE | 2021-09-20 05:45 | PC.NURSE ---
Lab called to report critical creatinine value of 7.61.
--- NOTE | 2021-09-20 06:45 | PC.NURSE ---
Dr. Joseph notified of critical creatinine value of 7.61; No new orders at this time.
[2021-09-20] MEDS: SODIUM CHLORIDE 0.9% IV 1,000 ML 200 ML IV CONT ×4 (07:49→23:15)
[2021-09-20] MEDS: HYDROcodone/acetaminophen (*CRX) 7.5-325 MG TABLET 1 TAB PO ×2 (08:17→18:33)
[2021-09-20] MEDS: ENOXAPARIN 30 MG/0.3 ML SYRINGE SUB-Q (08:17)
[2021-09-20] MEDS: carvediloL 12.5 MG TABLET PO ×2 (08:17→20:24)
[2021-09-20] MEDS: NICOTINE (*PBKC) 21 MG PATCH 1 PATCH TRANSDERM (08:18)
[2021-09-20] MEDS: MULTIVITAMINS THERAPEUTIC TAB (*BKC) 1 TABLET PO (08:18)
[2021-09-20 10:06] LABS: Magnesium 2.4 mg/dL (1.8-2.4)
[2021-09-20] MEDS: SODIUM CHLORIDE 1 GM TABLET PO (10:49)
[2021-09-20] MEDS: LOPERAMIDE HCL 2 MG CAPSULE PO ×7 (10:49→19:52)
[2021-09-20] MEDS: POTASSIUM CHLORIDE 20 MEQ TABLET 40 MEQ PO (10:50)
--- NOTE | 2021-09-20 13:29 | PM.IMPN ---
Progress Note: A&P Assessment and Plan (1) Acute renal failure: Qualifiers: Acute renal failure type: unspecified Qualified Code(s): N17.9 - Acute kidney failure, unspecified Code(s): N17.9 - Acute kidney failure, unspecified Status: Acute Assessment and Plan: BUN 42, 4.96, Calculated CrCl 16.9, eGFR 12, avoid nephrotoxic agents, holding Meloxicam, IVF gentle hydration after 1 L NS bolus in ER now 100/h, Ice chips and sips PO meds okay. 09/19/2021 early this AM Cr ^ 6.38, called Dr. Hobson Pt's Oncologist who gave recommendations, thank you, after an additional bolus of fluids Cr ^ 7.03, I then spoke with Child Life Assistant Dr. Barrett who did not have any additional recommendations at this time other than we both agreed to initiate getting Pt on transfer list to higher level of care. As of this time 2005 hours Pt is on a wait list with [facility] system 09/20/2021 Cr still on the rise but by less and less each day, Pt informed, continue on wait list, studio operations engineer in charge called this AM (2) Dehydration: Code(s): E86.0 - Dehydration Status: Acute Assessment and Plan: IVF 1 bolus NS in ER and now at 100 ml/h, will monitor fluids, VS 09/19/2021 Pt is about 7 Liters positive 09/20/2021 Cumulative fluid balance 11L however Pt has been voiding urine without measuring. Lungs are clear (3) Hypercalcemia: Code(s): E83.52 - Hypercalcemia Status: Acute Assessment and Plan: Ca++ 10.9, will monitor, likely reduced after IVF administration 09/19/2021 corrected after hydration to 8.5 as of 1700 hours 09/20/2021 Calcium calculated with Albumin at 3.1 and current lab at 8.1 for Ca++ is 9.2 (4) Tobacco abuse: Code(s): Z72.0 - Tobacco use Status: Acute Assessment and Plan: Nicotine Patch 21 mg, smoking cessation discussed Subjective Date/time seen: 09/20/21 13:29 Pt walking in his room without difficulty. He is satisfied with his pain control related to ongoing back pain and is not agitated regarding the need to go outside and smoke. Pt has not other complains of pains or breathing issues. He has been informed about his renal status and the interventions. He understands the need to be transferred and the current bed status in the area d/t COVID. Pt has no concerns at this time. Review of Systems Review of Systems: All systems reviewed & are unremarkable except as noted in HPI and below Exam Const: General: cooperative, healthy appearing, comfortable, no acute distress, well developed, alert, awake and Physically active Nutritional Appearance: average body habitus Limitations: no limitations Resp: Effort & Inspection: normal respiratory effort Auscultation: clear to auscultation bilaterally Cardio: Rate: regular rate Heart sounds: S1 normal heart sound present and S2 normal heart sound present GI: GI Palp: Yes Soft to palpation and No Tenderness to palpation present (GI) : General: Yes other (urinaring without difficulty) Skin: General skin exam: normal color and dry skin Neuro: General: patient oriented x3, moves all extremities, no focal motor deficits and other (walks independently without difficulty) Cognition (Neuro): normal cognition Speech: normal speech Gait exam (Neuro): Normal gait present Extrem: General: full ROM Psych: Appearance: grossly normal Mental Status: mental status grossly normal Speech and movement: Normal speech and movement present Affect: normal affect Attitude: cooperative Thought process: Normal thought process present Objective Data Vital Signs Vital Signs: Vital Signs - 24 hr 09/19/21 14:36 09/19/21 15:53 09/19/21 20:55 Temperature 97.7 F Pulse Rate 75 77 Pulse Rate [Left Monitor] 74 Respiratory Rate 16 Blood Pressure 121/69 Pulse Oximetry 98 09/20/21 00:00 09/20/21 02:00 09/20/21 06:00 Temperature 97.5 F L Pulse Rate 76 Pulse Rate [Left Monitor] 76 68 Respiratory Rate 18 Blood Pressure 122/80 Pulse
[2021-09-20] MEDS: SODIUM CHLORIDE 500 MG TABLET PO (17:05)
[2021-09-20] MEDS: ONDANSETRON HCL ODT 4 MG TABLET PO (20:27)
[2021-09-20] MEDS: MAGNESIUM HYDROXIDE SUSP 30 ML UDC PO (23:22)
[2021-09-21] VITALS: BP 137/70; PULSE 88; RESP 16; TEMP 36.6; O2SAT 100
[2021-09-21 02:00] VITALS: PULSE 88
[2021-09-21] MEDS: SODIUM CHLORIDE 0.9% IV 1,000 ML 200 ML IV CONT ×5 (04:21→19:37)
--- NOTE | 2021-09-21 04:27 | PC.NURSE ---
CIWA completed. Score 0 to 1 for last 24 hours.
[2021-09-21 05:28] LABS: Hematocrit 34.2 % (40.0-54.0); Hemoglobin 12.3 g/dL (14.0-18.0); Mean Corpuscular Hemoglobin 32.4 pg (27.0-31.0); Mean Platelet Volume 9.8 fl (8.7-11.0); Platelet Count Result 302 K/mm3 (150-420); Red Cell Distribution Width 13.1 % (11.6-14.4)
[2021-09-21 05:42] LABS: Alanine Aminotransferase 13 U/L (16-63); Albumin Level 2.8 g/dL (3.4-5.0); Alkaline Phosphatase 96 U/L (46-116); Anion Gap 19 mmol/L (8-16); Aspartate Amino Transferase 11 U/L (15-37); Bilirubin,Total 0.2 mg/dL (0.00-1.00); Blood Urea Nitrogen 53 mg/dL (7-18); Calcium 8.3 mg/dL (8.5-10.1); Carbon Dioxide 15 mmol/L (21-32); Chloride 99 mmol/L (98-108); Estimated CRCL calculation 10 ml/min; Estimated Glomerular Filt Rate 8; Glucose 89 mg/dL (70-99); Osmolality Calculated 289 mOsm/kg (285-295); Potassium 2.6 mmol/L (3.5-5.1); Sodium 133 mmol/L (136-145); Total Protein 6.7 g/dL (6.4-8.2)
[2021-09-21 08:00] VITALS: BP 138/69; PULSE 75; RESP 18; TEMP 36.9; O2SAT 96
[2021-09-21] MEDS: KCL 20 MEQ/SW 100 ML 100 ML 50 MEQ IVPB (09:35)
[2021-09-21] MEDS: NICOTINE (*PBKC) 21 MG PATCH 1 PATCH TRANSDERM (09:36)
[2021-09-21] MEDS: ENOXAPARIN 30 MG/0.3 ML SYRINGE SUB-Q (09:37)
[2021-09-21 09:38] VITALS: PULSE 75
[2021-09-21] MEDS: MULTIVITAMINS THERAPEUTIC TAB (*BKC) 1 TABLET PO (09:38)
[2021-09-21] MEDS: carvediloL 12.5 MG TABLET PO ×2 (09:38→21:08)
[2021-09-21] MEDS: POTASSIUM CHLORIDE 20 MEQ TABLET PO ×3 (09:39→17:20)
[2021-09-21] MEDS: SODIUM CHLORIDE 500 MG TABLET PO ×2 (09:41→17:20)
[2021-09-21] MEDS: HYDROcodone/acetaminophen (*CRX) 7.5-325 MG TABLET 1 TAB PO (10:06)
--- NOTE | 2021-09-21 10:20 | PM.IMPN ---
Progress Note: A&P Assessment and Plan (1) Acute renal failure: Qualifiers: Acute renal failure type: unspecified Qualified Code(s): N17.9 - Acute kidney failure, unspecified Code(s): N17.9 - Acute kidney failure, unspecified Status: Acute Assessment and Plan: BUN 42, 4.96, Calculated CrCl 16.9, eGFR 12, avoid nephrotoxic agents, holding Meloxicam, IVF gentle hydration after 1 L NS bolus in ER now 100/h, Ice chips and sips PO meds okay. 09/19/2021 early this AM Cr ^ 6.38, called Dr. Hobson Pt's Oncologist who gave recommendations, thank you, after an additional bolus of fluids Cr ^ 7.03, I then spoke with Arts And Crafts Teacher Dr. Barrett who did not have any additional recommendations at this time other than we both agreed to initiate getting Pt on transfer list to higher level of care. As of this time 2005 hours Pt is on a wait list with [facility] system 09/20/2021 Cr still on the rise but by less and less each day, Pt informed, continue on wait list, auditor in charge called this AM 09/21/2021 Pt states he has been dumping his urine rather than having staff see how much he is putting out. I discussed this with the Pt. Cr improved a little this AM from 7.61 to 7.32. Pt state sometimes he pees a lot and sometimes a little. [facility] called for a status update and it was provided that this Pt still needs nephrology continues on wait list with [facility]. (2) Dehydration: Code(s): E86.0 - Dehydration Status: Acute Assessment and Plan: IVF 1 bolus NS in ER and now at 100 ml/h, will monitor fluids, VS 09/19/2021 Pt is about 7 Liters positive 09/20/2021 Cumulative fluid balance 11L however Pt has been voiding urine without measuring. Lungs are clear 09/21/2021 Resolved, monitor for fluid overload, IVF continue at 200 ml/h for renal failure. (3) Hypercalcemia: Code(s): E83.52 - Hypercalcemia Status: Acute Assessment and Plan: Ca++ 10.9, will monitor, likely reduced after IVF administration 09/19/2021 corrected after hydration to 8.5 as of 1700 hours 09/20/2021 Calcium calculated with Albumin at 3.1 and current lab at 8.1 for Ca++ is 9.2 09/21/2021 Calculated Ca++ 9.7 mg/dL (4) Tobacco abuse: Code(s): Z72.0 - Tobacco use Status: Acute Assessment and Plan: Nicotine Patch 21 mg, smoking cessation discussed Subjective Date/time seen: 09/21/21 10:20 Objective Data Vital Signs Vital Signs: Vital Signs - 24 hr 09/20/21 14:00 09/20/21 15:53 09/20/21 18:00 Temperature 97.3 F L Pulse Rate 67 Pulse Rate [Left Monitor] 72 Pulse Rate [Left Radial] 80 70 Respiratory Rate 18 Blood Pressure 130/74 124/70 Pulse Oximetry 96 09/20/21 20:24 09/20/21 21:31 09/21/21 00:00 Temperature 97.9 F Pulse Rate 65 88 Pulse Rate [Left Monitor] 65 Pulse Rate [Left Radial] 62 Respiratory Rate 16 Blood Pressure 137/70 Pulse Oximetry 100 09/21/21 02:00 09/21/21 08:00 09/21/21 09:38 Temperature 98.5 F Pulse Rate 75 75 Pulse Rate [Left Monitor] 88 Pulse Rate [Left Radial] 88 Respiratory Rate 18 Blood Pressure 138/69 Pulse Oximetry 96 Intake/Output Intake/Output: Intake & Output 09/18/21 09/19/21 09/20/21 09/21/21 23:59 23:59 23:59 23:59 Intake Total 1370 6110 6360 3203.333 Output Total 75 10 Balance 1370 6035 6360 3193.333 Meds/Results Medications: Active Medications Generic Name Dose Route Start Last Admin Trade Name Freq PRN Reason Stop Dose Admin Acetaminophen 650 mg 09/18/21 15:39 Acetaminophen 325 Mg Tablet PO Q4H PRN Mild Pain (1-3) or Fever Hydrocodone Bitart/Acetaminophen 1 tab 09/18/21 19:37 09/21/21 10:06 Hydrocodone/Acetaminophen (*Crx) 7.5-325 Mg Tablet PO 1 tab DAILY PRN Administration Pain 7-10 Carvedilol 12.5 mg 09/19/21 09:00 09/21/21 09:38 Carvedilol 12.5 Mg Tablet PO 12.5 mg Q12HR BRANDY Administration Enoxaparin Sodium 30 mg 09/19/21 09:00 01
[2021-09-21 16:00] VITALS: BP 141/70; PULSE 82; RESP 18; TEMP 36.9; O2SAT 97
[2021-09-21] MEDS: ONDANSETRON HCL ODT 4 MG TABLET PO (16:02)
[2021-09-21] MEDS: MAGNESIUM HYDROXIDE SUSP 30 ML UDC PO (19:37)
[2021-09-21 21:08] VITALS: PULSE 90
[2021-09-21] MEDS: PANTOPRAZOLE 40 MG TABLET PO (23:23)
[2021-09-22] VITALS (7 sets, daily range): BP systolic 104–135; BP diastolic 54–69; PULSE 67–81; RESP 18; TEMP 36.4–36.9; O2SAT 95–99
[2021-09-22] MEDS: LOPERAMIDE HCL 2 MG CAPSULE PO ×7 (00:08→09:24)
[2021-09-22] MEDS: SODIUM CHLORIDE 0.9% IV 1,000 ML 200 ML IV CONT ×2 (00:50→05:59)
[2021-09-22 06:09] LABS: Hematocrit 32.8 % (40.0-54.0); Hemoglobin 11.8 g/dL (14.0-18.0); Mean Corpuscular Hemoglobin 32.1 pg (27.0-31.0); Mean Corpuscular Volume 89.1 fL (78.0-102.0); Mean Platelet Volume 9.2 fl (8.7-11.0); Platelet Count Result 281 K/mm3 (150-420); Red Blood Count 3.68 M/mm3 (4.70-6.10); Red Cell Distribution Width 13.2 % (11.6-14.4); White Blood Count 13.3 K/mm3 (4.8-10.8)
[2021-09-22 06:19] LABS: Anion Gap 20 mmol/L (8-16); Blood Urea Nitrogen 47 mg/dL (7-18); Calcium 8.1 mg/dL (8.5-10.1); Carbon Dioxide 16 mmol/L (21-32); Chloride 96 mmol/L (98-108); Estimated CRCL calculation 12 ml/min; Estimated Glomerular Filt Rate 10; Glucose 79 mg/dL (70-99); Osmolality Calculated 285 mOsm/kg (285-295); Sodium 132 mmol/L (136-145)
[2021-09-22 06:24] LABS: Potassium 2.5 mmol/L (3.5-5.1)
[2021-09-22] MEDS: POTASSIUM CHLORIDE 20 MEQ TABLET 40 MEQ PO (07:55)
[2021-09-22] MEDS: KCL 20 MEQ/SW 100 ML 100 ML 50 MEQ IVPB (07:55)
[2021-09-22] MEDS: PANTOPRAZOLE 40 MG TABLET PO ×2 (08:04→21:07)
[2021-09-22] MEDS: MULTIVITAMINS THERAPEUTIC TAB (*BKC) 1 TABLET PO (08:04)
[2021-09-22] MEDS: carvediloL 12.5 MG TABLET PO ×2 (08:04→21:06)
[2021-09-22] MEDS: NICOTINE (*PBKC) 21 MG PATCH 1 PATCH TRANSDERM (08:04)
[2021-09-22] MEDS: ENOXAPARIN 30 MG/0.3 ML SYRINGE SUB-Q (08:04)
[2021-09-22] MEDS: SODIUM CHLORIDE 500 MG TABLET PO ×2 (08:05→18:24)
--- NOTE | 2021-09-22 08:52 | PM.IMPN ---
Progress Note: A&P Assessment and Plan (1) Acute renal failure: Qualifiers: Acute renal failure type: unspecified Qualified Code(s): N17.9 - Acute kidney failure, unspecified <Carlos JimmyGOKUL Fox - Last Filed: 09/22/21 18:26> Code(s): N17.9 - Acute kidney failure, unspecified <Carlos JimmyGOKUL Fox - Last Filed: 09/22/21 18:26> Status: Acute <Carlos JimmyGOKUL Fox - Last Filed: 09/22/21 18:26> Assessment and Plan: BUN 42, 4.96, Calculated CrCl 16.9, eGFR 12, avoid nephrotoxic agents, holding Meloxicam, IVF gentle hydration after 1 L NS bolus in ER now 100/h, Ice chips and sips PO meds okay. 09/19/2021 early this AM Cr ^ 6.38, called Dr. Hobson Pt's Oncologist who gave recommendations, thank you, after an additional bolus of fluids Cr ^ 7.03, I then spoke with Creative Recruiter Dr. Barrett who did not have any additional recommendations at this time other than we both agreed to initiate getting Pt on transfer list to higher level of care. As of this time 2005 hours Pt is on a wait list with [facility] system 09/20/2021 Cr still on the rise but by less and less each day, Pt informed, continue on wait list, lost charge card clerk called this AM 09/21/2021 Pt states he has been dumping his urine rather than having staff see how much he is putting out. I discussed this with the Pt. Cr improved a little this AM from 7.61 to 7.32. Pt state sometimes he pees a lot and sometimes a little. [facility] called for a status update and it was provided that this Pt still needs nephrology continues on wait list with [facility]. 09/22/2021 Cr improved to 5.98 however Pts electrolytes require a careful eye. Continues on wait list at [facility] and [place] Pt preference is to stay in [place] <GOKUL Johnson - Last Filed: 09/22/21 18:26> (2) Dehydration: Code(s): E86.0 - Dehydration <GOKUL Johnson - Last Filed: 09/22/21 18:26> Status: Acute <Carlos MarquezKizzy Wade APN-C - Last Filed: 09/22/21 18:26> Assessment and Plan: IVF 1 bolus NS in ER and now at 100 ml/h, will monitor fluids, VS 09/19/2021 Pt is about 7 Liters positive 09/20/2021 Cumulative fluid balance 11L however Pt has been voiding urine without measuring. Lungs are clear 09/21/2021 Resolved, monitor for fluid overload, IVF continue at 200 ml/h for renal failure. 09/22/2021 IVF were reduced to 150 ml/h today to continue improving renal function and to decrease electrolyte imbalance. Again fluid balance is not accurate as Pt was dumping his urine and then started not using the Hat or Urinal, He was informed to start using them again. <Carlos Wade APN-C - Last Filed: 09/22/21 18:26> (3) Hypercalcemia: Code(s): E83.52 - Hypercalcemia <Carlos Wade APN-C - Last Filed: 09/22/21 18:26> Status: Acute <Carlos MarquezKizzy Wade APN-C - Last Filed: 09/22/21 18:26> Assessment and Plan: Ca++ 10.9, will monitor, likely reduced after IVF administration 09/19/2021 corrected after hydration to 8.5 as of 1700 hours 09/20/2021 Calcium calculated with Albumin at 3.1 and current lab at 8.1 for Ca++ is 9.2 09/21/2021 Calculated Ca++ 9.7 mg/dL 09/22/2021 Calculated at 9.5 mg/dL <Carlos Wade APN-C - Last Filed: 09/22/21 18:26> (4) Tobacco abuse: Code(s): Z72.0 - Tobacco use <Carlos Wade APN-C - Last Filed: 09/22/21 18:26> Status: Acute <Carlos Wade APN-C - Last Filed: 09/22/21 18:26> Assessment and Plan: Nicotine Patch 21 mg, smoking cessation discussed <Carlos Wade APN-C - Last Filed: 09/22/21 18:26> Subjective Date/time seen: 09/22/21 08:52 Pt walking back from the restroom. He states that he is urinating more often. Sometimes a little more and sometimes a little less. Pt has no complaints of swelling in the leg, no trouble breathing, he does have a cough. He is a smoker and has not been smoking since in the hospital. Pt was informed that
[2021-09-22] MEDS: HYDROcodone/acetaminophen (*CRX) 7.5-325 MG TABLET 1 TAB PO (09:23)
[2021-09-22] MEDS: SODIUM CHLORIDE 0.9% IV 1,000 ML 150 ML IV CONT ×2 (12:45→19:38)
[2021-09-23] VITALS: BP 138/71; PULSE 86; RESP 18; TEMP 37.3; O2SAT 97
[2021-09-23] MEDS: SODIUM CHLORIDE 0.9% IV 1,000 ML 150 ML IV CONT ×3 (02:22→16:50)
[2021-09-23 06:28] LABS: Hematocrit 35.5 % (40.0-54.0); Hemoglobin 12.7 g/dL (14.0-18.0); Mean Corpuscular HGB Conc 35.8 g/dL (32.0-36.0); Mean Corpuscular Hemoglobin 32.1 pg (27.0-31.0); Mean Corpuscular Volume 89.6 fL (78.0-102.0); Mean Platelet Volume 8.7 fl (8.7-11.0); Platelet Count Result 282 K/mm3 (150-420); Red Blood Count 3.96 M/mm3 (4.70-6.10); Red Cell Distribution Width 13.5 % (11.6-14.4); White Blood Count 16.9 K/mm3 (4.8-10.8)
[2021-09-23 06:38] LABS: Anion Gap 20 mmol/L (8-16); Blood Urea Nitrogen 45 mg/dL (7-18); Calcium 8.5 mg/dL (8.5-10.1); Carbon Dioxide 14 mmol/L (21-32); Chloride 100 mmol/L (98-108); Estimated CRCL calculation 15 ml/min; Estimated Glomerular Filt Rate 13; Glucose 115 mg/dL (70-99); Osmolality Calculated 290 mOsm/kg (285-295); Potassium 2.6 mmol/L (3.5-5.1); Sodium 134 mmol/L (136-145)
--- NOTE | 2021-09-23 06:40 | PC.NURSE ---
Lab called to report a critical creatinine of 4.74.
--- NOTE | 2021-09-23 06:45 | PC.NURSE ---
Dr. rendon notified of critical creatinine value of 4.74; No new orders at this time.
[2021-09-23 08:00] VITALS: BP 121/59; PULSE 78; RESP 17; TEMP 36.9; O2SAT 95
[2021-09-23] MEDS: NICOTINE (*PBKC) 21 MG PATCH 1 PATCH TRANSDERM (09:09)
[2021-09-23] MEDS: ENOXAPARIN 30 MG/0.3 ML SYRINGE SUB-Q (09:09)
[2021-09-23] MEDS: SODIUM CHLORIDE 500 MG TABLET PO ×2 (09:10→16:50)
[2021-09-23 09:11] VITALS: PULSE 68
[2021-09-23] MEDS: carvediloL 12.5 MG TABLET PO ×2 (09:11→23:16)
[2021-09-23] MEDS: PANTOPRAZOLE 40 MG TABLET PO ×2 (09:11→23:17)
[2021-09-23] MEDS: MULTIVITAMINS THERAPEUTIC TAB (*BKC) 1 TABLET PO (09:11)
[2021-09-23] MEDS: KCL 20 MEQ/SW 100 ML 100 ML 50 MEQ IVPB ×2 (10:12→12:25)
--- NOTE | 2021-09-23 12:36 | WPDPN ---
Progress Note: A&P Assessment and Plan (1) Acute renal failure: Qualifiers: Acute renal failure type: unspecified Qualified Code(s): N17.9 - Acute kidney failure, unspecified Code(s): N17.9 - Acute kidney failure, unspecified Status: Acute Assessment and Plan: BUN 42, 4.96, Calculated CrCl 16.9, eGFR 12, avoid nephrotoxic agents, holding Meloxicam, IVF gentle hydration after 1 L NS bolus in ER now 100/h, Ice chips and sips PO meds okay. 09/19/2021 early this AM Cr ^ 6.38, called Dr. Hobson Pt's Oncologist who gave recommendations, thank you, after an additional bolus of fluids Cr ^ 7.03, I then spoke with Gas Leak Inspector Helper Dr. Barrett who did not have any additional recommendations at this time other than we both agreed to initiate getting Pt on transfer list to higher level of care. As of this time 2005 hours Pt is on a wait list with [facility] system 09/20/2021 Cr still on the rise but by less and less each day, Pt informed, continue on wait list, viscose cellar charge hand called this AM 09/21/2021 Pt states he has been dumping his urine rather than having staff see how much he is putting out. I discussed this with the Pt. Cr improved a little this AM from 7.61 to 7.32. Pt state sometimes he pees a lot and sometimes a little. [facility] called for a status update and it was provided that this Pt still needs nephrology continues on wait list with [facility]. 09/22/2021 Cr improved to 5.98 however Pts electrolytes require a careful eye. Continues on wait list at [facility] and [place] Pt preference is to stay in [place] BUN/Cr 45/4.74 trending downwards. If patient condition and before transfer he can discharge and follow-up with nephrology (2) Dehydration: Code(s): E86.0 - Dehydration Status: Acute Assessment and Plan: IVF 1 bolus NS in ER and now at 100 ml/h, will monitor fluids, VS 09/19/2021 Pt is about 7 Liters positive 09/20/2021 Cumulative fluid balance 11L however Pt has been voiding urine without measuring. Lungs are clear 09/21/2021 Resolved, monitor for fluid overload, IVF continue at 200 ml/h for renal failure. 09/22/2021 IVF were reduced to 150 ml/h today to continue improving renal function and to decrease electrolyte imbalance. Again fluid balance is not accurate as Pt was dumping his urine and then started not using the Hat or Urinal, He was informed to start using them again. Resolved (3) Hypercalcemia: Code(s): E83.52 - Hypercalcemia Status: Acute Assessment and Plan: Ca++ 10.9, will monitor, likely reduced after IVF administration 09/19/2021 corrected after hydration to 8.5 as of 1700 hours 09/20/2021 Calcium calculated with Albumin at 3.1 and current lab at 8.1 for Ca++ is 9.2 09/21/2021 Calculated Ca++ 9.7 mg/dL 09/22/2021 Calculated at 9.5 mg/dL Resolved (4) Tobacco abuse: Code(s): Z72.0 - Tobacco use Status: Acute Assessment and Plan: Nicotine Patch 21 mg, smoking cessation discussed (5) Elevated WBCs: Code(s): D72.829 - Elevated white blood cell count, unspecified Status: Acute Assessment and Plan: WBCs11.0>13.3>16.9 Blood culture, UA culture, lactic acid and chest x-ray pain Will start Rocephin Subjective Date/time seen: 09/23/21 12:36 patient complains of diarrhea and frequent urination. Patient notes that his diarrhea has improved since admission but he still continues to have diarrhea. Patient notes that since his fluids has been discontinued he has not had frequent urination. He has no Other complaints at this time. The patient denies SOB, CP, palpitation, extremity numbness, lightheadedness, dizziness, constipation, chills, or fever. Review of Systems Review of Systems: A 14 organ system Review of Systems was performed and pertinent positives included in the HPI, otherwise remaining ROS is negative. Exam Narrative: GENERAL: This is a well-nourished, well-developed patient, in no apparent distress. HEAD: norm
[2021-09-23 14:33] LABS: Lactic Acid Reflex 0.8 mmol/L (0.4-2.0)
[2021-09-23 16:00] VITALS: BP 128/62; PULSE 80; RESP 18; TEMP 36.6; O2SAT 96
[2021-09-23] MEDS: ONDANSETRON HCL ODT 4 MG TABLET PO (16:50)
[2021-09-23 18:20] LABS: Add Urine Microscopic? YES; Appearance Urine Clear (Clear); Bilirubin Urine Negative (Negative); Blood Urine 1+ (Negative); Color Urine Yellow (Yellow); Glucose Urine UA Negative (Negative); Ketones Urine Negative (Negative); Leukocyte Esterase Ur Negative LEU/UL (Negative); Nitrate Urine Negative (Negative); Protein Urine 1+ (Negative); Specific Grav Ur >= 1.030 (1.010-1.020); Urobilinogen Urine 0.2 mg/dL (0.2-1.0); pH Urine 5.5 (5.0-8.0)
[2021-09-23 18:23] LABS: Amorphous Sediment Urine Few; Bacteria Urine Trace /hpf; Squamous Epithelial Cell Urine Few /hpf (Few); WBC Urine None seen /hpf (0-3)
--- NOTE | 2021-09-23 21:44 | PC.NURSE ---
This rewriter communicated with Dr. Joseph about pt having nausea and vomiting along with having chronic diarrhea. verbalized a switch from odt zofran to IVP form, but will have to consider some factors before giving the pt a different anti-diarrheal since pt verbalized Imodium does not work for him.
--- NOTE | 2021-09-23 22:00 | PC.NURSE ---
Pt verbalized that he had felt nauseous for an hour and induced vomiting by triggering his gag reflex with his finger.
[2021-09-23] MEDS: ONDANSETRON INJ 4 MG/2 ML VIAL IV PUSH (22:41)
[2021-09-23 23:14] VITALS: BP 138/74; PULSE 76; RESP 17; TEMP 37; O2SAT 97
[2021-09-23 23:16] VITALS: PULSE 76
[2021-09-23] MEDS: HYDROcodone/acetaminophen (*CRX) 7.5-325 MG TABLET 1 TAB PO (23:17)
[2021-09-23 23:18] LABS: SARS-CoV-2 RNA PCR Positive (Negative)
--- NOTE | 2021-09-23 23:25 | PC.NURSE ---
Dr. Joseph notified of pt's positive covid test; Orders received and noted.
[2021-09-24] MEDS: SODIUM CHLORIDE 0.9% IV 1,000 ML 150 ML IV CONT ×2 (00:06→06:52)
--- NOTE | 2021-09-24 00:13 | PC.NURSE ---
Pt transferred to room 211 after pt tested positive for Covid-19. Pt oriented to new rules of isolation and keeping the door closed and wearing his mask when appropriate. Pt verbalized understanding and has his call light within reach.
--- NOTE | 2021-09-24 02:35 | PC.NURSE ---
Pt rounding completed. Pt is sleeping on his right side with the bed in lowest position and the call light within reach.
--- NOTE | 2021-09-24 03:40 | PC.NURSE ---
Dr. Joseph notified of pt's low urine output and lower abdominal discomfort. New orders received and noted for a ye catheter.
[2021-09-24 05:10] LABS: Hematocrit 40.6 % (40.0-54.0); Hemoglobin 14.6 g/dL (14.0-18.0); Mean Corpuscular Hemoglobin 31.9 pg (27.0-31.0); Mean Corpuscular Volume 88.6 fL (78.0-102.0); Mean Platelet Volume 9.2 fl (8.7-11.0); Platelet Count Result 336 K/mm3 (150-420); Red Blood Count 4.58 M/mm3 (4.70-6.10); Red Cell Distribution Width 13.6 % (11.6-14.4); White Blood Count 17.5 K/mm3 (4.8-10.8)
[2021-09-24 05:21] LABS: Anion Gap 23 mmol/L (8-16); Blood Urea Nitrogen 47 mg/dL (7-18); Carbon Dioxide 11 mmol/L (21-32); Chloride 97 mmol/L (98-108); Estimated CRCL calculation 14 ml/min; Estimated Glomerular Filt Rate 11; Glucose 107 mg/dL (70-99); Magnesium 2.1 mg/dL (1.8-2.4); Osmolality Calculated 284 mOsm/kg (285-295); Potassium 2.8 mmol/L (3.5-5.1); Sodium 131 mmol/L (136-145)
--- NOTE | 2021-09-24 05:30 | PC.NURSE ---
Lab called to report a critical creatinine value of 5.17.
--- NOTE | 2021-09-24 05:35 | PC.NURSE ---
Dr. Joseph notified of pt's critical creatinine of 5.17; No new orders at this time.
--- NOTE | 2021-09-24 05:48 | PC.NURSE ---
Dr. Joseph notified of pt's low urine output; No new orders at this time.
[2021-09-24 08:00] VITALS: BP 126/80; PULSE 77; RESP 17; TEMP 36.2; O2SAT 96
[2021-09-24] MEDS: SODIUM CHLORIDE 500 MG TABLET PO ×2 (08:01→17:00)
[2021-09-24] MEDS: POTASSIUM CHLORIDE 20 MEQ TABLET 40 MEQ PO ×2 (08:01→11:23)
[2021-09-24] MEDS: PANTOPRAZOLE 40 MG TABLET PO ×2 (08:01→21:08)
[2021-09-24] MEDS: NICOTINE (*PBKC) 21 MG PATCH 1 PATCH TRANSDERM (08:01)
[2021-09-24 08:02] VITALS: PULSE 78
[2021-09-24] MEDS: carvediloL 12.5 MG TABLET PO ×2 (08:02→21:09)
[2021-09-24] MEDS: ENOXAPARIN 30 MG/0.3 ML SYRINGE SUB-Q (08:02)
[2021-09-24] MEDS: MULTIVITAMINS THERAPEUTIC TAB (*BKC) 1 TABLET PO (08:02)
[2021-09-24] MEDS: BENZONATATE 100 MG CAPSULE 200 MG PO ×2 (11:23→17:00)
[2021-09-24] MEDS: metroNIDAZOLE 500 MG/ISO 100ML 500 MG/100 ML BAG 100 MG IVPB ×2 (11:24→18:30)
[2021-09-24] MEDS: SACCHAROMYCES BOULARDII 250 MG CAPSULE PO ×2 (11:24→17:01)
--- NOTE | 2021-09-24 13:25 | WPDPN ---
Progress Note: A&P Assessment and Plan (1) Acute renal failure: Qualifiers: Acute renal failure type: unspecified Qualified Code(s): N17.9 - Acute kidney failure, unspecified <KASSANDRA Levy - Last Filed: 09/24/21 13:49> Code(s): N17.9 - Acute kidney failure, unspecified <KASSANDRA Levy - Last Filed: 09/24/21 13:49> Status: Acute <KASSANDRA Levy - Last Filed: 09/24/21 13:49> Assessment and Plan: BUN 42, 4.96, Calculated CrCl 16.9, eGFR 12, avoid nephrotoxic agents, holding Meloxicam, IVF gentle hydration after 1 L NS bolus in ER now 100/h, Ice chips and sips PO meds okay. 09/19/2021 early this AM Cr ^ 6.38, called Dr. Hobson Pt's Oncologist who gave recommendations, thank you, after an additional bolus of fluids Cr ^ 7.03, I then spoke with Veterans' Coordinator Dr. Barrett who did not have any additional recommendations at this time other than we both agreed to initiate getting Pt on transfer list to higher level of care. As of this time 2005 hours Pt is on a wait list with [facility] system 09/20/2021 Cr still on the rise but by less and less each day, Pt informed, continue on wait list, charge gang weigher called this AM 09/21/2021 Pt states he has been dumping his urine rather than having staff see how much he is putting out. I discussed this with the Pt. Cr improved a little this AM from 7.61 to 7.32. Pt state sometimes he pees a lot and sometimes a little. [facility] called for a status update and it was provided that this Pt still needs nephrology continues on wait list with [facility]. 09/22/2021 Cr improved to 5.98 however Pts electrolytes require a careful eye. Continues on wait list at [facility] and [place] Pt preference is to stay in [place] BUN/Cr 45/4.74 47/5.17 If patient condition and before transfer he can discharge and follow-up with nephrology <KASSANDRA Levy - Last Filed: 09/24/21 13:49> (2) Dehydration: Code(s): E86.0 - Dehydration <Katya LemaROXANN-C - Last Filed: 09/24/21 13:49> Status: Acute <Katya LemaROXANN-C - Last Filed: 09/24/21 13:49> Assessment and Plan: IVF 1 bolus NS in ER and now at 100 ml/h, will monitor fluids, VS 09/19/2021 Pt is about 7 Liters positive 09/20/2021 Cumulative fluid balance 11L however Pt has been voiding urine without measuring. Lungs are clear 09/21/2021 Resolved, monitor for fluid overload, IVF continue at 200 ml/h for renal failure. 09/22/2021 IVF were reduced to 150 ml/h today to continue improving renal function and to decrease electrolyte imbalance. Again fluid balance is not accurate as Pt was dumping his urine and then started not using the Hat or Urinal, He was informed to start using them again. Resolved <JewelROXANN Rizvi-C - Last Filed: 09/24/21 13:49> (3) Hypercalcemia: Code(s): E83.52 - Hypercalcemia <Katya Guzmán Torey EQUIPMENT DRIVER-C - Last Filed: 09/24/21 13:49> Status: Acute <Katya Lema EQUIPMENT DRIVER-C - Last Filed: 09/24/21 13:49> Assessment and Plan: Ca++ 10.9, will monitor, likely reduced after IVF administration 09/19/2021 corrected after hydration to 8.5 as of 1700 hours 09/20/2021 Calcium calculated with Albumin at 3.1 and current lab at 8.1 for Ca++ is 9.2 09/21/2021 Calculated Ca++ 9.7 mg/dL 09/22/2021 Calculated at 9.5 mg/dL Resolved <JewelROXANN Rizvi-C - Last Filed: 09/24/21 13:49> (4) Tobacco abuse: Code(s): Z72.0 - Tobacco use <ROXANN Levy-C - Last Filed: 09/24/21 13:49> Status: Acute <ROXANN Levy-C - Last Filed: 09/24/21 13:49> Assessment and Plan: Nicotine Patch 21 mg, smoking cessation discussed <KASSANDRA Levy - Last Filed: 09/24/21 13:49> (5) Elevated WBCs: Code(s): D72.829 - Elevated white blood cell count, unspecified <KASSANDRA Levy - Last Filed: 09/24/21 13:49> Status: Acute <KASSANDRA Levy L
[2021-09-24 16:00] VITALS: BP 114/82; PULSE 85; RESP 18; TEMP 36.1; O2SAT 96
[2021-09-24] MEDS: SODIUM CHLORIDE 0.9% IV 1,000 ML 75 ML IV CONT (17:04)
[2021-09-24 23:46] VITALS: BP 146/72; PULSE 75; RESP 20; TEMP 36.2; O2SAT 96
[2021-09-25] MEDS: metroNIDAZOLE 500 MG/ISO 100ML 500 MG/100 ML BAG 100 MG IVPB ×2 (01:04→10:54)
[2021-09-25] MEDS: ONDANSETRON INJ 4 MG/2 ML VIAL IV PUSH (05:22)
[2021-09-25 05:25] LABS: Hematocrit 41.8 % (40.0-54.0); Hemoglobin 15.1 g/dL (14.0-18.0); Mean Corpuscular HGB Conc 36.1 g/dL (32.0-36.0); Mean Corpuscular Hemoglobin 31.7 pg (27.0-31.0); Mean Corpuscular Volume 87.8 fL (78.0-102.0); Mean Platelet Volume 9.1 fl (8.7-11.0); Platelet Count Result 328 K/mm3 (150-420); Red Blood Count 4.76 M/mm3 (4.70-6.10); Red Cell Distribution Width 13.7 % (11.6-14.4)
[2021-09-25 05:47] LABS: Alanine Aminotransferase 33 U/L (16-63); Albumin Level 3.5 g/dL (3.4-5.0); Alkaline Phosphatase 130 U/L (46-116); Anion Gap 28 mmol/L (8-16); Aspartate Amino Transferase 33 U/L (15-37); Bilirubin,Total 0.3 mg/dL (0.00-1.00); Blood Urea Nitrogen 61 mg/dL (7-18); Carbon Dioxide 8 mmol/L (21-32); Chloride 94 mmol/L (98-108); Estimated CRCL calculation 9 ml/min; Estimated Glomerular Filt Rate 7; Glucose 127 mg/dL (70-99); Magnesium 2.3 mg/dL (1.8-2.4); Osmolality Calculated 289 mOsm/kg (285-295); Potassium 3.1 mmol/L (3.5-5.1); Sodium 130 mmol/L (136-145); Total Protein 8.5 g/dL (6.4-8.2)
--- NOTE | 2021-09-25 05:54 | PC.NURSE ---
Lab called to report a critical creatinine value of 8.20.
--- NOTE | 2021-09-25 06:26 | PC.NURSE ---
Dr. Rachel notified of pt's critical creatinine value of 8.20; no new orders at this time.
[2021-09-25] MEDS: SODIUM CHLORIDE 0.9% IV 1,000 ML 75 ML IV CONT (06:34)
--- NOTE | 2021-09-25 07:29 | WPDPN ---
Progress Note: A&P Assessment and Plan (1) Acute renal failure: Qualifiers: Acute renal failure type: unspecified Qualified Code(s): N17.9 - Acute kidney failure, unspecified Code(s): N17.9 - Acute kidney failure, unspecified Status: Acute Assessment and Plan: BUN 42, 4.96, Calculated CrCl 16.9, eGFR 12, avoid nephrotoxic agents, holding Meloxicam, IVF gentle hydration after 1 L NS bolus in ER now 100/h, Ice chips and sips PO meds okay. 09/19/2021 early this AM Cr ^ 6.38, called Dr. Hobson Pt's Oncologist who gave recommendations, thank you, after an additional bolus of fluids Cr ^ 7.03, I then spoke with Rn Progressive Care Dr. Barrett who did not have any additional recommendations at this time other than we both agreed to initiate getting Pt on transfer list to higher level of care. As of this time 2005 hours Pt is on a wait list with [facility] system 09/20/2021 Cr still on the rise but by less and less each day, Pt informed, continue on wait list, charge hand called this AM 09/21/2021 Pt states he has been dumping his urine rather than having staff see how much he is putting out. I discussed this with the Pt. Cr improved a little this AM from 7.61 to 7.32. Pt state sometimes he pees a lot and sometimes a little. [facility] called for a status update and it was provided that this Pt still needs nephrology continues on wait list with [facility]. 09/22/2021 Cr improved to 5.98 however Pts electrolytes require a careful eye. Continues on wait list at [facility] and [place] Pt preference is to stay in [place] BUN/Cr 45/4.74 >47/5.17 >61/8.20. Condition has worsened will call nephrology today for any recommendation 01/08/2021 cr 1.0 (2) Dehydration: Code(s): E86.0 - Dehydration Status: Acute Assessment and Plan: IVF 1 bolus NS in ER and now at 100 ml/h, will monitor fluids, VS 09/19/2021 Pt is about 7 Liters positive 09/20/2021 Cumulative fluid balance 11L however Pt has been voiding urine without measuring. Lungs are clear 09/21/2021 Resolved, monitor for fluid overload, IVF continue at 200 ml/h for renal failure. 09/22/2021 IVF were reduced to 150 ml/h today to continue improving renal function and to decrease electrolyte imbalance. Again fluid balance is not accurate as Pt was dumping his urine and then started not using the Hat or Urinal, He was informed to start using them again. Resolved (3) Hypercalcemia: Code(s): E83.52 - Hypercalcemia Status: Acute Assessment and Plan: Ca++ 10.9, will monitor, likely reduced after IVF administration 09/19/2021 corrected after hydration to 8.5 as of 1700 hours 09/20/2021 Calcium calculated with Albumin at 3.1 and current lab at 8.1 for Ca++ is 9.2 09/21/2021 Calculated Ca++ 9.7 mg/dL 09/22/2021 Calculated at 9.5 mg/dL Resolved (4) Tobacco abuse: Code(s): Z72.0 - Tobacco use Status: Acute Assessment and Plan: Nicotine Patch 21 mg, smoking cessation discussed (5) Elevated WBCs: Code(s): D72.829 - Elevated white blood cell count, unspecified Status: Acute Assessment and Plan: WBCs11.0>13.3>16.9>17.5>17.0 Blood culture, UA culture, lactic acid and chest x-ray pain contniue Rocephin (6) Gastroenteritis: Code(s): K52.9 - Noninfective gastroenteritis and colitis, unspecified Status: Acute Assessment and Plan: CT indicates gastritis continue Flagyl (7) Metastatic disease: Code(s): C79.9 - Secondary malignant neoplasm of unspecified site Status: Acute Assessment and Plan: hx of melanoma upper middle back 08/19/2020 excision to upper back oct dx with metastatic melanoma with left gland involvement March, started palliative immunotherapy treatment with ipiliumab and nivoluab 4 cycles started 05/22/2021. left adrenal gland biopsy performed 04/11/2021 ct march 25 showef 3 left lower lobe pulmonary mass and left adrenal mass consistent with metastatic di
[2021-09-25 08:00] VITALS: BP 156/83; PULSE 83; RESP 18; O2SAT 98
[2021-09-25] MEDS: ENOXAPARIN 30 MG/0.3 ML SYRINGE SUB-Q (09:05)
[2021-09-25] MEDS: NICOTINE (*PBKC) 21 MG PATCH 1 PATCH TRANSDERM (09:05)
[2021-09-25 09:06] VITALS: PULSE 83
[2021-09-25] MEDS: PANTOPRAZOLE 40 MG TABLET PO (09:06)
[2021-09-25] MEDS: POTASSIUM CHLORIDE 20 MEQ TABLET 40 MEQ PO (09:06)
[2021-09-25] MEDS: carvediloL 12.5 MG TABLET PO (09:06)
[2021-09-25] MEDS: MULTIVITAMINS THERAPEUTIC TAB (*BKC) 1 TABLET PO (09:06)
[2021-09-25] MEDS: BENZONATATE 100 MG CAPSULE 200 MG PO (09:07)
[2021-09-25] MEDS: SACCHAROMYCES BOULARDII 250 MG CAPSULE PO (09:07)
[2021-09-25] MEDS: SODIUM CHLORIDE 500 MG TABLET PO (09:08)
--- NOTE | 2021-09-25 11:46 | PC.NURSE ---
Report called to [facility] for transfer. Signature obtained from patient for permission to transfer. Awaiting ambulance to [facility].
--- NOTE | 2021-09-25 12:20 | PM.TDS ---
Transfer Discharge Sum: Prov Provider Date of admission: 09/19/21 16:44 Primary care physician: Gadiel Brown MD Admitting clinician: Se Jama MD DS: Admitting Diagnosis Discharge Date 09/25/2021 Admitting Diagnosis Acute kidney disease DS: Discharge Diagnosis Discharge Diagnosis (1) Acute renal failure: Qualifiers: Acute renal failure type: unspecified Qualified Code(s): N17.9 - Acute kidney failure, unspecified Code(s): N17.9 - Acute kidney failure, unspecified Status: Acute Assessment and Plan: BUN 42, 4.96, Calculated CrCl 16.9, eGFR 12, avoid nephrotoxic agents, holding Meloxicam, IVF gentle hydration after 1 L NS bolus in ER now 100/h, Ice chips and sips PO meds okay. 09/19/2021 early this AM Cr ^ 6.38, called Dr. Hobson Pt's Oncologist who gave recommendations, thank you, after an additional bolus of fluids Cr ^ 7.03, I then spoke with Senior Front End Engineer Dr. Barrett who did not have any additional recommendations at this time other than we both agreed to initiate getting Pt on transfer list to higher level of care. As of this time 2005 hours Pt is on a wait list with [facility] system 09/20/2021 Cr still on the rise but by less and less each day, Pt informed, continue on wait list, paver called this AM 09/21/2021 Pt states he has been dumping his urine rather than having staff see how much he is putting out. I discussed this with the Pt. Cr improved a little this AM from 7.61 to 7.32. Pt state sometimes he pees a lot and sometimes a little. [facility] called for a status update and it was provided that this Pt still needs nephrology continues on wait list with [facility]. 09/22/2021 Cr improved to 5.98 however Pts electrolytes require a careful eye. Continues on wait list at [facility] and [place] Pt preference is to stay in [place] BUN/Cr 45/4.74 >47/5.17 >61/8.20. Condition has worsened will call nephrology today for any recommendation 01/08/2021 cr 1.0 (2) Dehydration: Code(s): E86.0 - Dehydration Status: Acute Assessment and Plan: IVF 1 bolus NS in ER and now at 100 ml/h, will monitor fluids, VS 09/19/2021 Pt is about 7 Liters positive 09/20/2021 Cumulative fluid balance 11L however Pt has been voiding urine without measuring. Lungs are clear 09/21/2021 Resolved, monitor for fluid overload, IVF continue at 200 ml/h for renal failure. 09/22/2021 IVF were reduced to 150 ml/h today to continue improving renal function and to decrease electrolyte imbalance. Again fluid balance is not accurate as Pt was dumping his urine and then started not using the Hat or Urinal, He was informed to start using them again. Resolved (3) Hypercalcemia: Code(s): E83.52 - Hypercalcemia Status: Acute Assessment and Plan: Ca++ 10.9, will monitor, likely reduced after IVF administration 09/19/2021 corrected after hydration to 8.5 as of 1700 hours 09/20/2021 Calcium calculated with Albumin at 3.1 and current lab at 8.1 for Ca++ is 9.2 09/21/2021 Calculated Ca++ 9.7 mg/dL 09/22/2021 Calculated at 9.5 mg/dL Resolved (4) Tobacco abuse: Code(s): Z72.0 - Tobacco use Status: Acute Assessment and Plan: Nicotine Patch 21 mg, smoking cessation discussed (5) Elevated WBCs: Code(s): D72.829 - Elevated white blood cell count, unspecified Status: Acute Assessment and Plan: WBCs11.0>13.3>16.9>17.5>17.0 Blood culture, UA culture, lactic acid and chest x-ray pain contniue Rocephin (6) Gastroenteritis: Code(s): K52.9 - Noninfective gastroenteritis and colitis, unspecified Status: Acute Assessment and Plan: CT indicates gastritis continue Flagyl (7) Metastatic disease: Code(s): C79.9 - Secondary malignant neoplasm of unspecified site Status: Acute Assessment and Plan: hx of melanoma upper middle back 08/19/2020 excision to upper back oct dx with metastatic melanoma with left gland invo
== END 2021-09-25 12:10 | disposition short-term general hospital (02) | DRG 682 ==
LOC: CHSED 15:38 → CHS2ND 15:47
PROVIDERS: Emergency Medicine; Nurse Practitioner; Nurse Practitioner Family; Admitting Provider Emergency Medicine; Emergency Provider Emergency Medicine; PCP Internal Medicine; Visit Provider Emergency Medicine
DX: N17.9 Acute kidney failure, unspecified (principal); U07.1 COVID-19; J18.9 Pneumonia, unspecified organism; C79.72 Secondary malignant neoplasm of left adrenal gland; E83.52 Hypercalcemia; E86.0 Dehydration; E87.6 Hypokalemia; K52.9 Noninfective gastroenteritis and colitis, unspecified; C43.59 Malignant melanoma of other part of trunk; I10 Essential (primary) hypertension; M81.0 Age-related osteoporosis without current pathological fracture; R12 Heartburn; F17.210 Nicotine dependence, cigarettes, uncomplicated
CPT/HCPCS: 36415; 71046; 71250; 74176; 80048; 80053; 81001; 83605; 83735; 85025; 85027; 86140; 87040; 93976; 96361; 96372; 96374; 96375; 99285; A9270; C9113; C9803; G0378; J1650; J2405; J3475; J3480; J7030; U0003; U0005

== ENCOUNTER 2021-09-25 14:23 | Inpatient (IN) | payer BC, SELFPAY ==
[2021-09-25] VITALS (8 sets, daily range): BP systolic 134–143; BP diastolic 79–82; PULSE 70–85; RESP 18; TEMP 36.3–36.8; O2SAT 95–100; BMI 25.7
--- NOTE | ~2021-09-25 | US_ITS ---
EXAMINATION: US renal BI DATE: 09/25/2021 15:40 INDICATION: Acute renal failure. TECHNIQUE: Multiple ultrasound grayscale images of the kidneys were obtained. COMPARISON: CT abdomen and pelvis 09/18/2021 FINDINGS: The right kidney measures 10.5 x 4.2 x 5.5 cm. The left kidney measures 10.8 x 5.0 x 5.2 cm. The kidn eys demonstrate normal parenchymal echogenicity. There is no hydronephrosis. The bladder is decompres sed. IMPRESSION: 1. Normal kidneys. No hydronephrosis. Reviewed, dictated and finalized at location B. R HELPER
--- NOTE | ~2021-09-25 | XR_ITS ---
XR chest 1V portable 09/28/2021 06:14 Indication: AP portable chest Procedure: AP portable chest Comparison: Comparison to multiple prior studies sequentially, with oldest reviewed study dated 12/31. Findings: Portacatheter tip in the SVC. Heart size normal. Patchy infiltrates of the left mid lung, s uspicious for pneumonia. No pleural effusion or pneumothorax. Impression: 1: Patchy infiltrates of the left midlung, consistent with pneumonia. Reviewed, dictated and finalized at location A. NG CAGE WORKER Impression: 1: Patchy infiltrates of the left midlung, consistent with pneumonia.
--- NOTE | 2021-09-25 13:13 | ADMGEN ---
This patient, Savage Lebron, was admitted to IMU Room 211-01. Patient/family oriented to hospital policies and general routines including ID bracelet, bed and alarms, visiting hours, pain management, procedures, bathroom and other care routines, personal items, smoking policy, room service/diet, and visiting hours. Information on how to activate the Rapid Response Team has been discussed. Patient/Family are encouraged to report perceived risks to care and to ask questions if they do not understand what they are told or what they should do.
--- NOTE | 2021-09-25 14:10 | WPDGICN ---
Assessment and Plan Assessment and plan (1) Acute diarrhea: Code(s): R19.7 - Diarrhea, unspecified Status: Acute Assessment and Plan: I have ordered stool studies. I told that we may end up doing a colonoscopy. (2) Metastatic disease: Code(s): C79.9 - Secondary malignant neoplasm of unspecified site Status: Acute Assessment and Plan: He has been receiving treatments through [facility], (3) Acute renal failure: Qualifiers: Acute renal failure type: unspecified Qualified Code(s): N17.9 - Acute kidney failure, unspecified Code(s): N17.9 - Acute kidney failure, unspecified Status: Acute Assessment and Plan: nephrology has been consulted. He has never had kidney issues in the past. GI Consult Note Consult date/time: 09/25/21 14:10 HPI: Savage Lebron is a 61 year old male Who has been receiving immunotherapy for metastatic melanoma. He began receiving treatments around June every 3 weeks or so. He states he would get loose stools for day or 2 and then happened and then bowels would be okay again. Following his last course of therapy 2 weeks ago, he developed severe diarrhea 10 days ago and has been relentless. He has at least 10 or 12 stools each day which are pure water. There was no blood in his stools. His abdomen is feeling bloated. He has a good appetite and denies nausea or vomiting or fever. He was admitted to [facility] few days ago. There is creatinine was noted to have jumped from a normal level 1 on September 10, to 4.9 a few days later. Now it is 8.2. He has never had colon problems before. He has never had a colonoscopy and has never seen a bag repairer. Despite his malignancy, he has not lost weight and his appetite has been good. He denies vomiting nausea dysphagia or significant heartburn. He has no history of pancreatic disease or liver disease. He states stool studies were done when he was 1st admitted but because it is small hospital he does not have confidence that the results were accurate. Review of Systems Review of Systems: All systems reviewed & are unremarkable except as noted in HPI and below PMFSH Past Medical History Medical History BMI 29.0-29.9,adult Hypertension Malignant melanoma of upper back Osteoporosis Skin cancer Tobacco abuse Surgical History Surgical History History of appendectomy History of surgical removal of skin lesion Excision of 4 cm back mass Status post surgical removal of malignant neoplasm of skin Family History Family History Sibling Hypertension Father Colon cancer Cerebrovascular accident Social History Social History Smoking packs per day: 1 Smoking cigarettes per day: 20.0 Years smoked: 46 Smoking pack-years: 46.00 Smoking status: Current every day smoker Tobacco type: cigarettes Alcohol intake: current Drinks per week: 20 Alcohol use details: 2-3 beers per night Substance use: current Substance use type: marijuana Other substance usage details: USES 3-4 TIMES A WEEK Last use: 08/04/2020 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
--- NOTE | 2021-09-25 14:26 | PM.IMHP ---
H&P: HPI History of Present Illness Date/Time: 09/25/21 14:26 this is a 61-year-old male patient who was admitted to [facility] on 09/18/2019 to the patient initially was admitted under observation for hypercalcemia with a calcium of 10.9, acute renal failure and dehydration. The patient stated he has had no prior history of having chronic renal failure. The patient also is having daily diarrhea and had been taking Pepto-Bismol up to 8 times per day. He denied any blood in his stool. The patient has been getting treatment for melanoma. Initially patient's creatinine was 4.96. The patient had been hydrated the next day his creatinine was 6.38. The 7th his creatinine was 7.03 and on the 7.61. On 09/22/2019 to the patient's creatinine appear to be improving at 5.98 and on the left and 4.74. However today patient's creatinine came up to 8.2. According to the records [facility] staff had been communicating with Nephrology for further recommendations. The patient had been on Rocephin for urinary tract infection. He had been on Flagyl for colitis. On 09/23/2019 to his COVID test came back positive. Chest x-ray from today was read as no acute cardiopulmonary findings. However according to his records the patient was being treated for pneumonia with doxycycline. Patient had ultrasound retroperitoneal duplex on 09/19/2021 which was read as no Doppler evidence of renal arterial stenosis. Chest abdominal pelvis CT on 09/18/2021 was read as the following. Interval increase in size of a now 4.1 cm left adrenal mass consistent with biopsy-proven metastatic melanoma. 2. No interval change in several solid pulmonary nodules, the largest measuring 7 mm and 11 mm in the left lower lobe concerning for additional metastatic disease. 3. New 1.2 cm diameter ringlike groundglass opacity at the junction of the lingula and left upper lobe most likely infectious/inflammatory in etiology. 4. Diffuse fluid throughout the colon consistent with nonspecific diarrhea. Chronic clinically for gastroenteritis. 5. Unchanged mild mediastinal and retroperitoneal lymphadenopathy which could be either reactive or metastatic. Nephrology and GI has been consulted. We are awaiting stool specimens. Blood cultures from 09/18/2019 to showed no growth after 5 days. Repeat blood cultures were on drawn on the . Patient's white count remains elevated to 17.0. Patient's calcium level is now back to kristofer the patient is being admitted to inpatient status on 09/25/2019 . Chief Complaint: Acute renal failure. Review of Systems Review of Systems: All systems reviewed & are unremarkable except as noted in HPI and below Constitutional: Constitutional: Reports as per HPI and Reports no additional constitutional complaints Eyes: Eyes: Reports as per HPI and Reports no additional eye complaints ENT: Reports system reviewed and no additional complaints, except as documented and Reports Normal hearing present Cardiovascular: Cardiovascular: Reports no additional cardiovascular complaints Respiratory: Respiratory: Reports no additional respiratory complaints and Reports no additional respiratory complaints Gastrointestinal: Gastrointestinal: Reports as per HPI and Reports no additional gastrointestinal complaints Musculoskeletal: Musculoskeletal: Reports no additional musculoskeletal complaints Integumentary/Breasts: Skin/Breast: Reports system reviewed and no additional complaints, except as docu and Reports as per HPI Neurologic: Reports system reviewed and no additional complaints, except as documented, Reports as per HPI and Reports Normal hearing present Psychiatric: Psychiatric: Reports no additional psychiatric complaints and Reports as per HPI Endocrine: Endocrine: Reports no additional endocrine complaints Hematologic/Lymphatic: Hematologic/Lymphatic: Reports no additional hematologic/lymphatic complaints Allergic/Immunologic: Allergic/Immunologic: Reports no additional misti
[2021-09-25 15:25] LABS: Alanine Aminotransferase 28 U/L (4-50); Albumin Level 4.6 g/dL (3.5-5.1); Alkaline Phosphatase 124 U/L (38-126); Anion Gap 27 mmol/L (8-16); Aspartate Amino Transferase 25 U/L (17-59); Bilirubin,Total 0.4 mg/dL (0.2-1.3); Blood Urea Nitrogen 62 mg/dL (9-20); CRP 3.1 mg/dL (<1.0); Calcium 9.5 mg/dL (8.4-10.2); Carbon Dioxide 8 mmol/L (22-30); Chloride 95 mmol/L (98-107); Creatine Kinase 36 U/L (55-170); Estimated CRCL calculation 8 ml/min; Estimated Glomerular Filt Rate 6; Glucose 124 mg/dL (65-110); Phosphorus 12.6 mg/dL (2.5-4.5); Potassium 3.3 mmol/L (3.4-5.0); Sodium 130 mmol/L (137-145)
[2021-09-25 15:31] LABS: Complement C3 129 mg/dL (88-165)
[2021-09-25 15:33] LABS: Add Urine Microscopic? YES; Appearance Urine Cloudy (Clear); Bacteria Urine Trace /hpf; Bilirubin Urine Negative (Negative); Blood Urine 3+ (Negative); Color Urine Amber (Yellow); Glucose Urine UA Negative (Negative); Ketones Urine Negative (Negative); Leukocyte Esterase Ur 3+ LEU/UL (NEGATIVE); Mucus Urine Rare /lpf; Nitrate Urine Negative (Negative); Protein Urine 2+ mg/dL (Negative); RBC Urine >75 /hpf (0-2); Specific Grav Ur 1.015 (1.001-1.035); Urobilinogen Urine Negative mg/dL (<2.0); WBC Clumps Urine Present /HPF; WBC Urine >75 /hpf (0-3)
[2021-09-25 15:44] LABS: Erythrocyte Sedimentation Rate 17 mm/hr (0-20)
[2021-09-25 15:54] LABS: Creatinine Urine 228.3 mg/dL
[2021-09-25 15:59] LABS: Potassium Urine Random 13.5 meq/L; Sodium Urine Random 31 meq/L
[2021-09-25 16:00] LABS: Total Protein Urine Random 326 mg/dL; Ur Ttl Prot Creatinine Ratio 1.43 mg/mg (0-0.20)
--- NOTE | 2021-09-25 16:17 | P.CONNP_ITS ---
Assessment and Plan Assessment and plan (1) Acute renal failure: Qualifiers: Acute renal failure type: unspecified Qualified Code(s): N17.9 - Acute kidney failure, unspecified Code(s): N17.9 - Acute kidney failure, unspecified Status: Acute Assessment and Plan: * likely due to several issues: * prerenal factors (significant dehydration) * COVID-19 infection * diuretic use prior to admission * NSAID use prior to admission * reaction to recent chemo/immunotherapy(?) * agree with checking renal ultrasound * check urine electrolytes and urine eosinophils * serological testing ordered (but GN or vascultiis seems less likely) * agree with ongoing IVFs * replete electrolytes PRN * follow trend of repeat labs and urine output (2) Metabolic acidosis: Code(s): E87.2 - Acidosis Status: Acute Assessment and Plan: * due to NILA and issues with GI loss/diarrhea * compensating with bicarb in IVFs as well as oral supplementation * follow trend (3) Acute diarrhea: Code(s): R19.7 - Diarrhea, unspecified Status: Acute Assessment and Plan: * as noted by history * Gastroenterology following with recommendations noted * continus supportive therapy (4) COVID-19 virus infection: Code(s): U07.1 - COVID-19 Status: Acute Assessment and Plan: * no evidence of hypoxia at this time * continue isolation * follow respiratory status (5) Metastatic melanoma: Code(s): C79.9 - Secondary malignant neoplasm of unspecified site Status: Chronic Assessment and Plan: * known diagnosis * follows with Dr. Hobson (6) Hypertension: Code(s): I10 - Essential (primary) hypertension Status: Chronic Assessment and Plan: * reasonable control at this itme * holding BP medications * follow trend of hemodynamics Long extensive discussion (> 20 minutes) with patient regarding his acute kidney injury/acute renal failure including his ongoing issues with hypokalemia as well as significant metabolic acidosis. Her review the plan of care with him as noted above and also discussed with him the possibility that if his kidney function continues to deteriorate or he runs in the problems with ongoing metabolic acidosis resistant medical therapy, uremia, or overt volume overload, he may require temporary renal replacement therapy / hemodialysis. He appeared to voice understanding to that possibility but was hopeful that ongoing therapy will hopefully prevent that from happening. Will continue to follow. History of Present Illness Reason for Consult Consult date: 09/25/21 Reason for consult: acute renal failure Chief Complaint Chief complaint: nila History of Present Illness Narrative: The patient is a 61-year-old male with a past medical history as outlined below who was transferred from [facility] to [facility] for further evaluation of his ongoing acute renal failure. The patient is intially presented to [facility] emergency room earlier this month for generalized weakness in association with abnormal blood w ork that was done previously. Prior to his admission, he been having significant diarrhea that did not appear to respond to conservative therapy. His initial creatinine was 4.96 and given his history of diarrhea, it was assumed that this was all dehydration / volume depletion and hence IV fluids or initiated. His creatinine initially worsened over the last several days and seemed peak at around 7.6 mg/dL b
--- NOTE | 2021-09-25 16:17 | PM.CNNEP ---
Assessment and Plan Assessment and plan (1) Acute renal failure: Qualifiers: Acute renal failure type: unspecified Qualified Code(s): N17.9 - Acute kidney failure, unspecified Code(s): N17.9 - Acute kidney failure, unspecified Status: Acute Assessment and Plan: likely due to several issues: prerenal factors (significant dehydration) COVID-19 infection diuretic use prior to admission NSAID use prior to admission reaction to recent chemo/immunotherapy(?) agree with checking renal ultrasound check urine electrolytes and urine eosinophils serological testing ordered (but GN or vascultiis seems less likely) agree with ongoing IVFs replete electrolytes PRN follow trend of repeat labs and urine output (2) Metabolic acidosis: Code(s): E87.2 - Acidosis Status: Acute Assessment and Plan: due to NILA and issues with GI loss/diarrhea compensating with bicarb in IVFs as well as oral supplementation follow trend (3) Acute diarrhea: Code(s): R19.7 - Diarrhea, unspecified Status: Acute Assessment and Plan: as noted by history Gastroenterology following with recommendations noted continus supportive therapy (4) COVID-19 virus infection: Code(s): U07.1 - COVID-19 Status: Acute Assessment and Plan: no evidence of hypoxia at this time continue isolation follow respiratory status (5) Metastatic melanoma: Code(s): C79.9 - Secondary malignant neoplasm of unspecified site Status: Chronic Assessment and Plan: known diagnosis follows with Dr. Hobson (6) Hypertension: Code(s): I10 - Essential (primary) hypertension Status: Chronic Assessment and Plan: reasonable control at this itme holding BP medications follow trend of hemodynamics Long extensive discussion (> 20 minutes) with patient regarding his acute kidney injury/acute renal failure including his ongoing issues with hypokalemia as well as significant metabolic acidosis. Her review the plan of care with him as noted above and also discussed with him the possibility that if his kidney function continues to deteriorate or he runs in the problems with ongoing metabolic acidosis resistant medical therapy, uremia, or overt volume overload, he may require temporary renal replacement therapy / hemodialysis. He appeared to voice understanding to that possibility but was hopeful that ongoing therapy will hopefully prevent that from happening. Will continue to follow. History of Present Illness Reason for Consult Consult date: 09/25/21 Reason for consult: acute renal failure Chief Complaint Chief complaint: nila History of Present Illness Narrative: The patient is a 61-year-old male with a past medical history as outlined below who was transferred from [facility] to [facility] for further evaluation of his ongoing acute renal failure. The patient is intially presented to [facility] emergency room earlier this month for generalized weakness in association with abnormal blood work that was done previously. Prior to his admission, he been having significant diarrhea that did not appear to respond to conservative therapy. His initial creatinine was 4.96 and given his history of diarrhea, it was assumed that this was all dehydration / volume depletion and hence IV fluids or initiated. His creatinine initially worsened over the last several days and seemed peak at around 7.6 mg/dL before it improved following this. However, on the day of transfer, his creatinine jumped back up to 8.2 mg/dL. During his hospitalization at [facility], he had continued to receive aggressive IV fluid resuscitation and was initially being treated with antibiotics for presumed urinary tract infection as well. He did have evidence of colitis by imaging studies so was on antibiotics for this as wel
[2021-09-25 16:22] LABS: Hepatitis B Surface Antigen Negative (Negative)
[2021-09-25 16:28] LABS: Hepatitis B Core IgM Result Negative (Negative)
[2021-09-25 16:31] LABS: HIV 1/2 Ab P24 Ag Result Negative (Negative)
[2021-09-25 16:40] LABS: Hepatitis B Surface Anti Res Negative; Hepatitis C Virus Antibody Negative (Negative)
[2021-09-25] MEDS: SODIUM BICARBONATE TAB 650 MG TABLET 1300 MG PO (17:27)
[2021-09-25] MEDS: metroNIDAZOLE 250 MG TABLET 500 MG PO ×2 (17:27→23:33)
[2021-09-25] MEDS: POTASSIUM CHLORIDE 20 MEQ PACKET (FOR LIQUID) PO (17:28)
[2021-09-25] MEDS: SODIUM BICARBONATE 8.4% 75 MEQ in SODIUM CHLORIDE 0.45% 1,000 ML IV CONT (17:52)
[2021-09-25] MEDS: carvediloL 12.5 MG TABLET PO (20:40)
[2021-09-26] VITALS (13 sets, daily range): BP systolic 122–156; BP diastolic 71–92; PULSE 69–81; RESP 12–20; TEMP 35.9–37.2; O2SAT 98–100
[2021-09-26] MEDS: SODIUM BICARBONATE 8.4% 75 MEQ in SODIUM CHLORIDE 0.45% 1,000 ML IV CONT ×2 (05:14→20:39)
[2021-09-26] MEDS: metroNIDAZOLE 250 MG TABLET 500 MG PO ×2 (05:14→18:22)
[2021-09-26] MEDS: HYDROcodone/acetaminophen (*CRX) 7.5-325 MG TABLET 1 TAB PO (05:19)
[2021-09-26 08:11] LABS: Basophils Absolute Auto 0.1 K/mm3 (0.0-0.1); Basophils Percent Auto 0.3 % (0.2-1.2); Eosinophils Percent Auto 0.1 % (0-4.4); Hematocrit 36.1 % (42.0-52.0); Hemoglobin 13.3 g/dL (14.0-18.0); Immature Granulocyte Absolute 0.19 K/mm3 (0.00-0.031); Immature Granulocyte Percent A 0.9 % (0-0.5); Lymphocytes Absolute Auto 0.96 K/mm3 (0.9-3.2); Lymphocytes Percent Auto 4.4 % (18.3-44.2); Mean Corpuscular HGB Conc 36.8 g/dl (32-36); Mean Corpuscular Hemoglobin 31.9 pg (26-34); Mean Corpuscular Volume 86.6 fl (80-100); Mean Platelet Volume 9.7 fl (7.4-10.4); Monocytes Percent Auto 4.6 % (2.6-8.5); Neutrophils Absolute Auto 19.5 K/mm3 (1.3-6.7); Neutrophils Percent Auto 89.7 % (45.5-73.1); Platelet Count Result 286 k/mm3 (150-375); Red Blood Count 4.17 M/mm3 (4.6-6.20); Red Cell Distribution Width 13.7 % (11.5-14.5); White Blood Count 21.7 K/mm3 (4.5-10.0)
[2021-09-26 08:31] LABS: Alanine Aminotransferase 21 U/L (4-50); Alkaline Phosphatase 117 U/L (38-126); Anion Gap 27 mmol/L (8-16); Aspartate Amino Transferase 21 U/L (17-59); Bilirubin,Total 0.4 mg/dL (0.2-1.3); Blood Urea Nitrogen 69 mg/dL (9-20); Calcium 8.7 mg/dL (8.4-10.2); Carbon Dioxide 7 mmol/L (22-30); Chloride 96 mmol/L (98-107); Estimated CRCL calculation 8 ml/min; Estimated Glomerular Filt Rate 6; Glucose 89 mg/dL (65-110); Lipase 414 U/L (23-300); Potassium 2.7 mmol/L (3.4-5.0); Sodium 130 mmol/L (137-145)
[2021-09-26] MEDS: SODIUM BICARBONATE TAB 650 MG TABLET 1300 MG PO ×3 (09:26→18:22)
[2021-09-26] MEDS: POTASSIUM CHLORIDE 20 MEQ TABLET 40 MEQ PO (09:27)
[2021-09-26] MEDS: NICOTINE (*PBKC) 21 MG PATCH 1 PATCH TRANSDERM (09:27)
[2021-09-26] MEDS: ASPIRIN 325 MG TABLET PO (09:27)
[2021-09-26] MEDS: carvediloL 12.5 MG TABLET PO ×2 (09:27→20:39)
--- NOTE | 2021-09-26 11:17 | P.PNNP_ITS ---
Progress Note: A&P Assessment and Plan (1) Acute renal failure: Qualifiers: Acute renal failure type: unspecified Qualified Code(s): N17.9 - Acute kidney failure, unspecified Code(s): N17.9 - Acute kidney failure, unspecified Status: Acute Assessment and Plan: * likely due to several issues: * prerenal factors (significant dehydration) * COVID-19 infection * diuretic use prior to admission * NSAID use prior to admission * reaction to recent chemo/immunotherapy(?) * renal ultrasound without obstruction * urine electrolytes c/w prerenal azotemia; urine eosinophils pending * follow-up on serological testing (but GN or vascultiis seems less likely) * agree with ongoing IVFs * replete electrolytes PRN * follow trend of repeat labs and urine output (2) Metabolic acidosis: Code(s): E87.2 - Acidosis Status: Acute Assessment and Plan: * due to NILA and issues with GI loss/diarrhea * compensating with bicarb in IVFs as well as oral supplementation * follow trend (3) Hypokalemia: Code(s): E87.6 - Hypokalemia Status: Acute Assessment and Plan: * due to ongoing GI losses, acidosis, and possibly total body store depletion * replace cautiosly in the setting of NILA/ARF * use of oral and IV bicarbonate likely contributing * follow repeat levels (4) Acute diarrhea: Code(s): R19.7 - Diarrhea, unspecified Status: Acute Assessment and Plan: * as noted by history * Gastroenterology following * follow-up on stool studies * continus supportive therapy (5) COVID-19 virus infection: Code(s): U07.1 - COVID-19 Status: Acute Assessment and Plan: * no evidence of hypoxia at this time * continue isolation * follow respiratory status (6) Metastatic melanoma: Code(s): C79.9 - Secondary malignant neoplasm of unspecified site Status: Chronic Assessment and Plan: * known diagnosis * follows with Dr. Hobson (7) Hypertension: Code(s): I10 - Essential (primary) hypertension Status: Chronic Assessment and Plan: * reasonable control at this time * follow trend of hemodynamics Will continue to follow. Subjective Date/time seen: 09/26/21 11:17 Unfortunately, he continues to have diarrhea but he does report it seems to be slowing down in general; tolerating oral intake at this time; he feels that his urine output has increased in the last 24 hours; no other issues/events overnight or earlier this AM. Exam Narrative: General: WD/WN male/female in NAD Heart: normal S1 and S2; no rub Lungs: clear to auscultation Abdomen: soft, nontender, mild distension, positive bowel sounds Extremities: no cyanosis or clubbing; no edema Skin: warm and dry Objective Data Vital Signs Vital Signs: Vital Signs Temp Pulse Resp BP Pulse Ox 09/26/21 08:00 37.2 C 77 20 129/71 98 09/26/21 06:00 74 09/26/21 04:00 36.5 C 71 12 156/77 H 100 09/26/21 02:00 69 09/26/21 00:00 35.9 C L 69 20 156/83 H 98 09/25/21 22:00 70 09/25/21 20:40 70 09/25/21 20:00 36.3 C L 71 18 143/79 H 100 09/25/21 18:00 72 09/25/21 16:00 36.7 C 85 18 134/80 95 09/25/21 15:15 36.8 C 76 18 134/82 97 09/25/21 14:00 71
--- NOTE | 2021-09-26 11:17 | PM.PNNEP ---
Progress Note: A&P Assessment and Plan (1) Acute renal failure: Qualifiers: Acute renal failure type: unspecified Qualified Code(s): N17.9 - Acute kidney failure, unspecified Code(s): N17.9 - Acute kidney failure, unspecified Status: Acute Assessment and Plan: likely due to several issues: prerenal factors (significant dehydration) COVID-19 infection diuretic use prior to admission NSAID use prior to admission reaction to recent chemo/immunotherapy(?) renal ultrasound without obstruction urine electrolytes c/w prerenal azotemia; urine eosinophils pending follow-up on serological testing (but GN or vascultiis seems less likely) agree with ongoing IVFs replete electrolytes PRN follow trend of repeat labs and urine output (2) Metabolic acidosis: Code(s): E87.2 - Acidosis Status: Acute Assessment and Plan: due to NILA and issues with GI loss/diarrhea compensating with bicarb in IVFs as well as oral supplementation follow trend (3) Hypokalemia: Code(s): E87.6 - Hypokalemia Status: Acute Assessment and Plan: due to ongoing GI losses, acidosis, and possibly total body store depletion replace cautiosly in the setting of NILA/ARF use of oral and IV bicarbonate likely contributing follow repeat levels (4) Acute diarrhea: Code(s): R19.7 - Diarrhea, unspecified Status: Acute Assessment and Plan: as noted by history Gastroenterology following follow-up on stool studies continus supportive therapy (5) COVID-19 virus infection: Code(s): U07.1 - COVID-19 Status: Acute Assessment and Plan: no evidence of hypoxia at this time continue isolation follow respiratory status (6) Metastatic melanoma: Code(s): C79.9 - Secondary malignant neoplasm of unspecified site Status: Chronic Assessment and Plan: known diagnosis follows with Dr. Hobson (7) Hypertension: Code(s): I10 - Essential (primary) hypertension Status: Chronic Assessment and Plan: reasonable control at this time follow trend of hemodynamics Will continue to follow. Subjective Date/time seen: 09/26/21 11:17 Unfortunately, he continues to have diarrhea but he does report it seems to be slowing down in general; tolerating oral intake at this time; he feels that his urine output has increased in the last 24 hours; no other issues/events overnight or earlier this AM. Exam Narrative: General: WD/WN male/female in NAD Heart: normal S1 and S2; no rub Lungs: clear to auscultation Abdomen: soft, nontender, mild distension, positive bowel sounds Extremities: no cyanosis or clubbing; no edema Skin: warm and dry Objective Data Vital Signs Vital Signs: Vital Signs Temp Pulse Resp BP Pulse Ox 09/26/21 08:00 37.2 C 77 20 129/71 98 09/26/21 06:00 74 09/26/21 04:00 36.5 C 71 12 156/77 H 100 09/26/21 02:00 69 09/26/21 00:00 35.9 C L 69 20 156/83 H 98 09/25/21 22:00 70 09/25/21 20:40 70 09/25/21 20:00 36.3 C L 71 18 143/79 H 100 09/25/21 18:00 72 09/25/21 16:00 36.7 C 85 18 134/80 95 09/25/21 15:15 36.8 C 76 18 134/82 97 09/25/21 14:00 71 09/25/21 13:00 71 97 Intake/Output Intake/Output: Intake & Output 09/23/21 09/24/21 09/25/21 09/26/21 23:59 23:59 23:59 23:59 Intake Total 820 1465 Output Total 60 1200 Balance 760 265 Meds/Results Medications: Active Medications Generic Name Dose Route Start Last Admin Trade Name Freq PRN Reason Stop Dose Admin Hydrocodone Bitart/Acetaminophen 1 tab 09/25/21 16:22 09/26/21 05:19 Hydrocodone/Acetaminophen (*Crx) 7.5-325 Mg Tablet PO 1 tab DAILY PRN Administration Pain Aspirin 325 mg 09/26/21 09:00 09/26/21 09:27 Aspirin 325 Mg Tablet PO 325 mg DAILY BRANDY Administration Carvedilol 12.5 mg 09/25/21 21:
--- NOTE | 2021-09-26 12:07 | PM.IMPN ---
Progress Note: A&P Assessment and Plan (1) Acute renal failure: Qualifiers: Acute renal failure type: unspecified Qualified Code(s): N17.9 - Acute kidney failure, unspecified Code(s): N17.9 - Acute kidney failure, unspecified Status: Acute Assessment and Plan: Patient had a Encarnacion catheter placed and he is draining dark manav urine. Urinalysis and urine culture have been collected. I did use in the acute renal failure protocol. Nephrology has been consulted. Continue with IV fluids. Renal ultrasound. Avoid any nephrotoxic medication. (2) Gastroenteritis: Code(s): K52.9 - Noninfective gastroenteritis and colitis, unspecified Status: Acute Assessment and Plan: Stool cultures have been obtained. GI has been consulted. Continue with Flagyl. (3) Metastatic disease: Code(s): C79.9 - Secondary malignant neoplasm of unspecified site Status: Acute Assessment and Plan: hx of melanoma upper middle back 08/19/2020 excision to upper back oct dx with metastatic melanoma with left gland involvement March, started palliative immunotherapy treatment with ipiliumab and nivoluab 4 cycles started 05/22/2021. left adrenal gland biopsy performed 04/11/2021 ct march 25 showef 3 left lower lobe pulmonary mass and left adrenal mass consistent with metastatic disease Patient aware 1. Interval increase in size of a now 4.1 cm left adrenal mass consistent with biopsy-proven metastatic melanoma. 2. No interval change in several solid pulmonary nodules, the largest measuring 7 mm and 11 mm in the left lower lobe concerning for additional metastatic disease. Consult Dr. Hobson (4) Hypertension: Code(s): I10 - Essential (primary) hypertension Status: Chronic Assessment and Plan: Continue with Coreg (5) Tobacco abuse: Code(s): Z72.0 - Tobacco use Status: Acute Assessment and Plan: Continue with nicotine patch. (6) COVID: Code(s): U07.1 - COVID-19 Status: Acute Assessment and Plan: Continue to monitor LDH and ferritin. Additional Plan 09/26/21 Creatinine down trending Nephro following on bicarb drip Continue vancomycin PO for C diff Rocephin for UTI Culture pending for urine Continue current care Time Spent With Patient Time with patient: 25 - 35 minutes Subjective Date/time seen: 09/26/21 12:07 Patient with diarrhea for 12 days. He is C diff positive. He is on Flagyl p.o.. He also has renal failure. Patient is otherwise asymptomatic from COVID. Exam Narrative: GEN: NAD, AAOx3, cooperative HEENT: NCAT, MMM, EOMI Neck: no JVD Heart: S1S2 RRR Lungs: CTA B/l Abd: soft, NT, ND, bowel sounds normoactive Ext: moves all, no cyanosis, no clubbing, no edema Neuro: Cranial nerves intact no focal neurological deficits appreciated Psych: Mood and affect congruent Objective Data Vital Signs Vital Signs: Vital Signs - 24 hr 09/25/21 13:00 09/25/21 14:00 09/25/21 15:15 Temperature 98.2 F Pulse Rate 71 71 76 Respiratory Rate 18 Blood Pressure 134/82 Pulse Oximetry 97 97 09/25/21 16:00 09/25/21 18:00 09/25/21 20:00 Temperature 98.0 F 97.4 F L Pulse Rate 85 72 71 Respiratory Rate 18 18 Blood Pressure 134/80 143/79 H Pulse Oximetry 95 100 09/25/21 20:40 09/25/21 22:00 09/26/21 00:00 Temperature 96.7 F L Pulse Rate 70 70 69 Respiratory Rate 20 Blood Pressure 156/83 H Pulse Oximetry 98 09/26/21 02:00 09/26/21 04:00 09/26/21 06:00 Temperature 97.7 F Pulse Rate 69 71 74 Respiratory Rate 12 Blood Pressure 156/77 H Pulse Oximetry 100 09/26/21 08:00 09/26/21 10:00 Temperature 99.0 F Pulse Rate 78 81 Respiratory Rate 20 Blood Pressure 129/71 Pulse Oximetry 98 Intake/Output Intake/Output: Intake & Output 09/23/21 09/24/21 09/25/21 09/26/21 23:59 23:59 23:59 23:59 Intake Total 820 1465 Output Total 60 1200 Balance 760 265 Me
--- NOTE | 2021-09-26 12:31 | WPDGIPROGNO ---
Progress Note: A&P Assessment and Plan (1) COVID-19 virus infection: Code(s): U07.1 - COVID-19 Status: Acute Assessment and Plan: He denies any new symptoms. He does cough occasionally while I was in the room (2) Acute diarrhea: Code(s): R19.7 - Diarrhea, unspecified Status: Acute (3) Metastatic disease: Code(s): C79.9 - Secondary malignant neoplasm of unspecified site Status: Acute Assessment and Plan: He has been receiving treatments through [facility], . He believes that the last round of therapy may have triggered his diarrhea . Stool cultures so far negative but only the C diff is finalized. He had stool studies at [facility] which were negative. I told him that we will likely perform a colonoscopy on Wednesday (4) Acute renal failure: Qualifiers: Acute renal failure type: unspecified Qualified Code(s): N17.9 - Acute kidney failure, unspecified Code(s): N17.9 - Acute kidney failure, unspecified Status: Acute Assessment and Plan: nephrology has been consulted. He has never had kidney issues in the past. today his creatinine is 9.0. He is encouraged by the fact that he is urinating more Subjective Date/time seen: 09/26/21 12:31 He continues to have diarrhea. He states that his stools are less frequent now. He is tolerating his diet. He denies any new symptoms such as abdominal, and he feels that he is urinating more frequently Review of Systems Review of Systems: All systems reviewed & are unremarkable except as noted in HPI and below Exam Const: General: alert Orientation/consciousness: patient oriented x3 Resp: Auscultation: clear to auscultation bilaterally Cardio: Rhythm: regular rhythm GI: Inspection: distended GI Palp: No abdominal tenderness Auscultation: normal bowel sounds Neuro: General: patient oriented x3 Objective Data Vital Signs Vital Signs: Vital Signs - 24 hr 09/25/21 13:00 09/25/21 14:00 09/25/21 15:15 Temperature 36.8 C Pulse Rate 71 71 76 Respiratory Rate 18 Blood Pressure 134/82 Pulse Oximetry 97 97 09/25/21 16:00 09/25/21 18:00 09/25/21 20:00 Temperature 36.7 C 36.3 C L Pulse Rate 85 72 71 Respiratory Rate 18 18 Blood Pressure 134/80 143/79 H Pulse Oximetry 95 100 09/25/21 20:40 09/25/21 22:00 09/26/21 00:00 Temperature 35.9 C L Pulse Rate 70 70 69 Respiratory Rate 20 Blood Pressure 156/83 H Pulse Oximetry 98 09/26/21 02:00 09/26/21 04:00 09/26/21 06:00 Temperature 36.5 C Pulse Rate 69 71 74 Respiratory Rate 12 Blood Pressure 156/77 H Pulse Oximetry 100 09/26/21 08:00 09/26/21 10:00 Temperature 37.2 C Pulse Rate 78 81 Respiratory Rate 20 Blood Pressure 129/71 Pulse Oximetry 98 Intake/Output Intake/Output: Intake & Output 09/23/21 09/24/21 09/25/21 09/26/21 23:59 23:59 23:59 23:59 Intake Total 820 1465 Output Total 60 1200 Balance 760 265 Meds/Results Medications: Active Medications Generic Name Dose Route Start Last Admin Trade Name Freq PRN Reason Stop Dose Admin Hydrocodone Bitart/Acetaminophen 1 tab 09/25/21 16:22 09/26/21 05:19 Hydrocodone/Acetaminophen (*Crx) 7.5-325 Mg Tablet PO 1 tab DAILY PRN Administration Pain Aspirin 325 mg 09/26/21 09:00 09/26/21 09:27 Aspirin 325 Mg Tablet PO 325 mg DAILY BRANDY Administration Carvedilol 12.5 mg 09/25/21 21:00 09/26/21 09:27 Carvedilol 12.5 Mg Tablet PO 12.5 mg Q12HR BRANDY Administration Sodium Bicarbonate 75 meq/ 1,075 mls @ 75 mls/hr 09/25/21 16:30 09/26/21 05:14 Sodium Chloride IV CONT 75 mls/hr .[id number] BRANDY Administration Ceftriaxone Sodium/Dextrose 1 gm in 50 mls @ 100 mls/hr 09/26/21 09:00 09/26/21 09:27 Rocephin 1 Gm/D5w 50 Ml IVPB 100 mls/hr Q24H BRANDY Administration Metronidazole 500 mg 09/26/21 18:00 Metronidazole 250 Mg Tablet PO Q6HR BRANDY
[2021-09-26] MEDS: POTASSIUM BICARBONATE 25 MEQ TABEF PO ×2 (13:45→20:39)
[2021-09-26 17:34] LABS: Anion Gap 23 mmol/L (8-16); Blood Urea Nitrogen 73 mg/dL (9-20); Calcium 8.5 mg/dL (8.4-10.2); Carbon Dioxide 11 mmol/L (22-30); Chloride 94 mmol/L (98-107); Estimated CRCL calculation 9 ml/min; Estimated Glomerular Filt Rate 7; Glucose 110 mg/dL (65-110); Phosphorus 8.8 mg/dL (2.5-4.5); Potassium 2.9 mmol/L (3.4-5.0); Sodium 128 mmol/L (137-145)
[2021-09-26] MEDS: POTASSIUM BICARBONATE 25 MEQ TABEF 50 MEQ PO (18:22)
[2021-09-27] VITALS (16 sets, daily range): BP systolic 109–141; BP diastolic 56–79; PULSE 70–90; RESP 14–26; TEMP 35.8–37.5; O2SAT 95–100
[2021-09-27] MEDS: metroNIDAZOLE 250 MG TABLET 500 MG PO ×2 (00:15→05:36)
[2021-09-27 06:03] LABS: Alanine Aminotransferase 19 U/L (4-50); Albumin Level 3.4 g/dL (3.5-5.1); Alkaline Phosphatase 104 U/L (38-126); Anion Gap 23 mmol/L (8-16); Aspartate Amino Transferase 26 U/L (17-59); Bilirubin,Total 0.5 mg/dL (0.2-1.3); Blood Urea Nitrogen 70 mg/dL (9-20); Carbon Dioxide 11 mmol/L (22-30); Chloride 93 mmol/L (98-107); Estimated CRCL calculation 11 ml/min; Estimated Glomerular Filt Rate 9; Glucose 92 mg/dL (65-110); Potassium 2.3 mmol/L (3.4-5.0); Sodium 127 mmol/L (137-145)
[2021-09-27 07:04] LABS: Magnesium 1.6 mg/dL (1.6-2.3)
[2021-09-27] MEDS: POTASSIUM CHLORIDE 20 MEQ TABLET 40 MEQ PO ×2 (07:42→13:26)
[2021-09-27] MEDS: ASPIRIN 325 MG TABLET PO (08:50)
[2021-09-27] MEDS: carvediloL 12.5 MG TABLET PO ×2 (08:51→20:47)
[2021-09-27] MEDS: SODIUM BICARBONATE TAB 650 MG TABLET 1300 MG PO ×3 (08:51→16:47)
[2021-09-27] MEDS: NICOTINE (*PBKC) 21 MG PATCH 1 PATCH TRANSDERM (08:51)
--- NOTE | 2021-09-27 09:34 | WPDGIPROGNO ---
Progress Note: A&P Assessment and Plan (1) COVID-19 virus infection: Code(s): U07.1 - COVID-19 Status: Acute Assessment and Plan: He denies any new symptoms. He does cough occasionally while I was in the room (2) Acute diarrhea: Code(s): R19.7 - Diarrhea, unspecified Status: Acute (3) Metastatic disease: Code(s): C79.9 - Secondary malignant neoplasm of unspecified site Status: Acute Assessment and Plan: He has been receiving treatments through [facility], . He believes that the last round of therapy may have triggered his diarrhea . Stool cultures so far negative. He had stool studies at [facility] which were negative. I told him that we will perform a colonoscopy on Wednesday (4) Acute renal failure: Qualifiers: Acute renal failure type: unspecified Qualified Code(s): N17.9 - Acute kidney failure, unspecified Code(s): N17.9 - Acute kidney failure, unspecified Status: Acute Assessment and Plan: nephrology has been consulted. He has never had kidney issues in the past. today his creatinine is now down to 6.6!. He is encouraged by the fact that he is urinating more Subjective Date/time seen: 09/27/21 09:34 diarrhea persists. He thinks his stools are less frequent but still rather loose. I told that most of the stool culture results are back and are negative. Review of Systems Review of Systems: All systems reviewed & are unremarkable except as noted in HPI and below Exam Const: General: alert Orientation/consciousness: patient oriented x3 Resp: Auscultation: clear to auscultation bilaterally Cardio: Rhythm: regular rhythm GI: Inspection: other ( No longer distended) Auscultation: normal bowel sounds Neuro: General: patient oriented x3 Objective Data Vital Signs Vital Signs: Vital Signs - 24 hr 09/26/21 10:00 09/26/21 12:00 09/26/21 14:00 Temperature 36.2 C L Pulse Rate 81 70 74 Respiratory Rate 14 Blood Pressure 122/82 Pulse Oximetry 98 09/26/21 16:00 09/26/21 18:12 09/26/21 20:00 Temperature 36.2 C L 35.9 C L Pulse Rate 72 69 72 Respiratory Rate 20 20 Blood Pressure 128/92 H 128/72 Pulse Oximetry 98 99 09/26/21 20:39 09/26/21 22:00 09/27/21 00:00 Temperature 35.9 C L Pulse Rate 73 75 72 Respiratory Rate 14 Blood Pressure 139/76 Pulse Oximetry 98 09/27/21 02:00 09/27/21 04:00 09/27/21 06:00 Temperature 35.8 C L Pulse Rate 71 70 82 Respiratory Rate 14 Blood Pressure 119/73 Pulse Oximetry 98 09/27/21 07:53 09/27/21 08:00 09/27/21 08:51 Temperature 36.6 C Pulse Rate 74 74 74 Respiratory Rate 22 H 22 H Blood Pressure 141/74 H Pulse Oximetry 100 100 Intake/Output Intake/Output: Intake & Output 09/24/21 09/25/21 09/26/21 09/27/21 23:59 23:59 23:59 23:59 Intake Total 820 3750 1000 Output Total 60 1800 2100 Balance 760 1950 -1100 Meds/Results Medications: Active Medications Generic Name Dose Route Start Last Admin Trade Name Freq PRN Reason Stop Dose Admin Hydrocodone Bitart/Acetaminophen 1 tab 09/25/21 16:22 09/26/21 05:19 Hydrocodone/Acetaminophen (*Crx) 7.5-325 Mg Tablet PO 1 tab DAILY PRN Administration Pain Aspirin 325 mg 09/26/21 09:00 09/27/21 08:50 Aspirin 325 Mg Tablet PO 325 mg DAILY BRANDY Administration Carvedilol 12.5 mg 09/25/21 21:00 09/27/21 08:51 Carvedilol 12.5 Mg Tablet PO 12.5 mg Q12HR BRANDY Administration Ceftriaxone Sodium/Dextrose 1 gm in 50 mls @ 100 mls/hr 09/26/21 09:00 09/27/21 08:52 Rocephin 1 Gm/D5w 50 Ml IVPB 100 mls/hr Q24H BRANDY Administration Sodium Bicarbonate 75 meq/ 1,085 mls @ 75 mls/hr 09/27/21 07:25 09/27/21 08:52 Potassium Chloride 20 meq/ IV CONT 75 mls/hr Sodium Chloride .[id number] BRANDY Administration Metronidazole 500 mg 09/26/21 18:00 09/27/21 05:36 Metronidazole 250 Mg Tablet PO 500 mg Q6HR BRANDY
--- NOTE | 2021-09-27 11:08 | PM.IMPN ---
Progress Note: A&P Assessment and Plan (1) Acute renal failure: Qualifiers: Acute renal failure type: unspecified Qualified Code(s): N17.9 - Acute kidney failure, unspecified Code(s): N17.9 - Acute kidney failure, unspecified Status: Acute Assessment and Plan: Patient had a Encarnacion catheter placed and he is draining dark manav urine. Urinalysis and urine culture have been collected. I did use in the acute renal failure protocol. Nephrology has been consulted. Continue with IV fluids. Renal ultrasound. Avoid any nephrotoxic medication. (2) Gastroenteritis: Code(s): K52.9 - Noninfective gastroenteritis and colitis, unspecified Status: Acute Assessment and Plan: Stool cultures have been obtained. GI has been consulted. Continue with Flagyl. (3) Metastatic disease: Code(s): C79.9 - Secondary malignant neoplasm of unspecified site Status: Acute Assessment and Plan: hx of melanoma upper middle back 08/19/2020 excision to upper back oct dx with metastatic melanoma with left gland involvement March, started palliative immunotherapy treatment with ipiliumab and nivoluab 4 cycles started 05/22/2021. left adrenal gland biopsy performed 04/11/2021 ct march 25 showef 3 left lower lobe pulmonary mass and left adrenal mass consistent with metastatic disease Patient aware 1. Interval increase in size of a now 4.1 cm left adrenal mass consistent with biopsy-proven metastatic melanoma. 2. No interval change in several solid pulmonary nodules, the largest measuring 7 mm and 11 mm in the left lower lobe concerning for additional metastatic disease. Consult Dr. Hobson (4) Hypertension: Code(s): I10 - Essential (primary) hypertension Status: Chronic Assessment and Plan: Continue with Coreg (5) Tobacco abuse: Code(s): Z72.0 - Tobacco use Status: Acute Assessment and Plan: Continue with nicotine patch. (6) COVID: Code(s): U07.1 - COVID-19 Status: Acute Assessment and Plan: Continue to monitor LDH and ferritin. Additional Plan 09/26/21 Creatinine down trending Nephro following on bicarb drip Continue vancomycin PO for C diff Rocephin for UTI Culture pending for urine Continue current care 09/27/21 creatinine down trending nephro managing renal failure C diff negative PO Vanco discontinued codeine added for cough seen by GI colonoscopy Wednesday cont current care inflammatory markers and CXR for am Subjective Date/time seen: 09/27/21 11:08 pt doing ok has no complaints other than cough Exam Narrative: GEN: NAD, AAOx3, cooperative HEENT: NCAT, MMM, EOMI Neck: no JVD Heart: S1S2 RRR Lungs: CTA B/l Abd: soft, NT, ND, bowel sounds normoactive Ext: moves all, no cyanosis, no clubbing, no edema Neuro: Cranial nerves intact no focal neurological deficits appreciated Psych: Mood and affect congruent Objective Data Vital Signs Vital Signs: Vital Signs - 24 hr 09/26/21 12:00 09/26/21 14:00 09/26/21 16:00 Temperature 97.2 F L 97.2 F L Pulse Rate 70 74 72 Respiratory Rate 14 20 Blood Pressure 122/82 128/92 H Pulse Oximetry 98 98 09/26/21 18:12 09/26/21 20:00 09/26/21 20:39 Temperature 96.6 F L Pulse Rate 69 72 73 Respiratory Rate 20 Blood Pressure 128/72 Pulse Oximetry 99 09/26/21 22:00 09/27/21 00:00 09/27/21 02:00 Temperature 96.6 F L Pulse Rate 75 72 71 Respiratory Rate 14 Blood Pressure 139/76 Pulse Oximetry 98 09/27/21 04:00 09/27/21 06:00 09/27/21 07:53 Temperature 96.4 F L 97.9 F Pulse Rate 70 82 74 Respiratory Rate 14 22 H Blood Pressure 119/73 141/74 H Pulse Oximetry 98 100 09/27/21 08:00 09/27/21 08:51 Temperature Pulse Rate 74 74 Respiratory Rate 22 H Blood Pressure Pulse Oximetry 100 Intake/Output Intake/Output: Intake & Output 09/24/21 09/25/21 09/26/21 09/27/21 23:59 23:59 23:59 23:59 Intake Tot
--- NOTE | 2021-09-27 12:01 | P.PNNP_ITS ---
Progress Note: A&P Assessment and Plan (1) Acute renal failure: Qualifiers: Acute renal failure type: unspecified Qualified Code(s): N17.9 - Acute kidney failure, unspecified Code(s): N17.9 - Acute kidney failure, unspecified Status: Acute Assessment and Plan: * likely due to several issues: * prerenal factors (significant dehydration) * COVID-19 infection * diuretic use prior to admission * NSAID use prior to admission * reaction to recent chemo/immunotherapy(?) * renal ultrasound without obstruction * urine electrolytes c/w prerenal azotemia; urine eosinophils pending still. * follow-up on serological testing (but GN or vascultiis seems less likely) . C4 is slightly low. * agree with ongoing IVFs * replete electrolytes PRN * follow trend of repeat labs and urine output (2) Metabolic acidosis: Code(s): E87.2 - Acidosis Status: Acute Assessment and Plan: * due to NILA and issues with GI loss/diarrhea * compensating with bicarb in IVFs as well as oral supplementation * follow trend (3) Hypokalemia: Code(s): E87.6 - Hypokalemia Status: Acute Assessment and Plan: * due to ongoing GI losses, acidosis, and possibly total body store depletion * replacing cautiously in the setting of NILA/ARF * use of oral and IV bicarbonate likely contributing * follow repeat levels (4) Acute diarrhea: Code(s): R19.7 - Diarrhea, unspecified Status: Acute Assessment and Plan: * as noted by history * Gastroenterology following * follow-up on stool studies * continus supportive therapy (5) COVID-19 virus infection: Code(s): U07.1 - COVID-19 Status: Acute Assessment and Plan: * no evidence of hypoxia at this time * continue isolation * follow respiratory status (6) Metastatic melanoma: Code(s): C79.9 - Secondary malignant neoplasm of unspecified site Status: Chronic Assessment and Plan: * known diagnosis * follows with Dr. Hobson (7) Hypertension: Code(s): I10 - Essential (primary) hypertension Status: Chronic Assessment and Plan: * reasonable control at this time * follow trend of hemodynamics Will continue to follow. Subjective Date/time seen: 09/27/21 12:01 Interval history: patient still having copious amounts of diarrhea. No chest pain or shortness of breath. In good spirits. Exam Narrative: General: WD/WN male/female in NAD Heart: normal S1 and S2; no rub Lungs: clear Abdomen: soft, nontender, mild distension, positive bowel sounds Extremities: no cyanosis or clubbing; no edema Skin: No rash Objective Data Vital Signs Vital Signs: Vital Signs - 24 hr 09/26/21 14:00 09/26/21 16:00 09/26/21 18:12 Temperature 36.2 C L Pulse Rate 74 72 69 Respiratory Rate 20 Blood Pressure 128/92 H Pulse Oximetry 98 09/26/21 20:00 09/26/21 20:39 09/26/21 22:00 Temperature 35.9 C L Pulse Rate 72 73 75 Respiratory Rate 20 Blood Pressure 128/72 Pulse Oximetry 99 09/27/21 00:00 09/27/21 02:00 09/27/21 04:00 Temperature 35.9 C L 35.8 C L Pulse Rate 72 71 70 Respiratory Rate 14 14 Blood Pressure 139/76 119/73 Pulse Oxim
--- NOTE | 2021-09-27 12:01 | PM.PNNEP ---
Progress Note: A&P Assessment and Plan (1) Acute renal failure: Qualifiers: Acute renal failure type: unspecified Qualified Code(s): N17.9 - Acute kidney failure, unspecified Code(s): N17.9 - Acute kidney failure, unspecified Status: Acute Assessment and Plan: likely due to several issues: prerenal factors (significant dehydration) COVID-19 infection diuretic use prior to admission NSAID use prior to admission reaction to recent chemo/immunotherapy(?) renal ultrasound without obstruction urine electrolytes c/w prerenal azotemia; urine eosinophils pending still. follow-up on serological testing (but GN or vascultiis seems less likely) . C4 is slightly low. agree with ongoing IVFs replete electrolytes PRN follow trend of repeat labs and urine output (2) Metabolic acidosis: Code(s): E87.2 - Acidosis Status: Acute Assessment and Plan: due to NILA and issues with GI loss/diarrhea compensating with bicarb in IVFs as well as oral supplementation follow trend (3) Hypokalemia: Code(s): E87.6 - Hypokalemia Status: Acute Assessment and Plan: due to ongoing GI losses, acidosis, and possibly total body store depletion replacing cautiously in the setting of NILA/ARF use of oral and IV bicarbonate likely contributing follow repeat levels (4) Acute diarrhea: Code(s): R19.7 - Diarrhea, unspecified Status: Acute Assessment and Plan: as noted by history Gastroenterology following follow-up on stool studies continus supportive therapy (5) COVID-19 virus infection: Code(s): U07.1 - COVID-19 Status: Acute Assessment and Plan: no evidence of hypoxia at this time continue isolation follow respiratory status (6) Metastatic melanoma: Code(s): C79.9 - Secondary malignant neoplasm of unspecified site Status: Chronic Assessment and Plan: known diagnosis follows with Dr. Hobson (7) Hypertension: Code(s): I10 - Essential (primary) hypertension Status: Chronic Assessment and Plan: reasonable control at this time follow trend of hemodynamics Will continue to follow. Subjective Date/time seen: 09/27/21 12:01 Interval history: patient still having copious amounts of diarrhea. No chest pain or shortness of breath. In good spirits. Exam Narrative: General: WD/WN male/female in NAD Heart: normal S1 and S2; no rub Lungs: clear Abdomen: soft, nontender, mild distension, positive bowel sounds Extremities: no cyanosis or clubbing; no edema Skin: No rash Objective Data Vital Signs Vital Signs: Vital Signs - 24 hr 09/26/21 14:00 09/26/21 16:00 09/26/21 18:12 Temperature 36.2 C L Pulse Rate 74 72 69 Respiratory Rate 20 Blood Pressure 128/92 H Pulse Oximetry 98 09/26/21 20:00 09/26/21 20:39 09/26/21 22:00 Temperature 35.9 C L Pulse Rate 72 73 75 Respiratory Rate 20 Blood Pressure 128/72 Pulse Oximetry 99 09/27/21 00:00 09/27/21 02:00 09/27/21 04:00 Temperature 35.9 C L 35.8 C L Pulse Rate 72 71 70 Respiratory Rate 14 14 Blood Pressure 139/76 119/73 Pulse Oximetry 98 98 09/27/21 06:00 09/27/21 07:53 09/27/21 08:00 Temperature 36.6 C Pulse Rate 82 74 74 Respiratory Rate 22 H 22 H Blood Pressure 141/74 H Pulse Oximetry 100 100 09/27/21 08:51 Temperature Pulse Rate 74 Respiratory Rate Blood Pressure Pulse Oximetry Intake/Output Intake/Output: Intake & Output 09/24/21 09/25/21 09/26/21 09/27/21 23:59 23:59 23:59 23:59 Intake Total 820 3750 1000 Output Total 60 1800 2100 Balance 760 1950 -1100 Meds/Results Medications: Active Medications Generic Name Dose Route Start Last Admin Trade Name Freq PRN Reason Stop Dose Admin Hydrocodone Bitart/Acetaminophen 1 tab 09/25/21 16:22 09/26/21 05:19 Hydrocodone/Acetaminophen (*Crx) 7.5-325 Mg Table
[2021-09-27] MEDS: guaiFENesin/CODEINE (*CRX) 200/20 MG 10 ML SYRUP PO ×2 (14:49→20:47)
[2021-09-27 15:44] LABS: Potassium 2.4 mmol/L (3.4-5.0)
[2021-09-27] MEDS: POTASSIUM CHLORIDE 20 MEQ PACKET (FOR LIQUID) 40 MEQ PO ×2 (16:47→20:47)
[2021-09-27] MEDS: SODIUM BICARBONATE IV CONT (20:46)
[2021-09-27] MEDS: POTASSIUM CHLORIDE IV CONT (20:46)
[2021-09-27] MEDS: [UNRECOGNIZED DRUG - OTHER] IV CONT (20:46)
[2021-09-28] VITALS (15 sets, daily range): BP systolic 95–119; BP diastolic 62–77; PULSE 79–96; RESP 12–20; TEMP 36.2–37.1; O2SAT 95–100
[2021-09-28] MEDS: POTASSIUM CHLORIDE 20 MEQ PACKET (FOR LIQUID) 40 MEQ PO ×4 (03:34→21:55)
[2021-09-28] MEDS: guaiFENesin/CODEINE (*CRX) 200/20 MG 10 ML SYRUP PO (03:36)
[2021-09-28 06:09] LABS: Basophils Absolute Auto 0.1 K/mm3 (0.0-0.1); Basophils Percent Auto 0.7 % (0.2-1.2); Eosinophils Percent Auto 0.2 % (0-4.4); Hematocrit 33.5 % (42.0-52.0); Hemoglobin 12.7 g/dL (14.0-18.0); Immature Granulocyte Percent A 0.8 % (0-0.5); Lymphocytes Absolute Auto 1.17 K/mm3 (0.9-3.2); Lymphocytes Percent Auto 9.7 % (18.3-44.2); Mean Corpuscular HGB Conc 37.9 g/dl (32-36); Mean Corpuscular Hemoglobin 31.9 pg (26-34); Mean Corpuscular Volume 84.2 fl (80-100); Mean Platelet Volume 10.1 fl (7.4-10.4); Monocytes Absolute Auto 0.7 K/mm3 (0.1-0.6); Monocytes Percent Auto 6.1 % (2.6-8.5); Neutrophils Absolute Auto 9.9 K/mm3 (1.3-6.7); Neutrophils Percent Auto 82.5 % (45.5-73.1); Platelet Count Result 228 k/mm3 (150-375); Red Blood Count 3.98 M/mm3 (4.6-6.20); Red Cell Distribution Width 13.1 % (11.5-14.5)
[2021-09-28 06:27] LABS: D Dimer 2.03 ug/mL (<0.48)
[2021-09-28 06:35] LABS: Alanine Aminotransferase 23 U/L (4-50); Albumin Level 3.8 g/dL (3.5-5.1); Alkaline Phosphatase 115 U/L (38-126); Anion Gap 24 mmol/L (8-16); Aspartate Amino Transferase 39 U/L (17-59); Bilirubin,Total 0.6 mg/dL (0.2-1.3); Blood Urea Nitrogen 62 mg/dL (9-20); CRP 3.8 mg/dL (<1.0); Calcium 8.1 mg/dL (8.4-10.2); Carbon Dioxide 16 mmol/L (22-30); Chloride 87 mmol/L (98-107); Estimated CRCL calculation 17 ml/min; Estimated Glomerular Filt Rate 14; Glucose 107 mg/dL (65-110); Magnesium 1.5 mg/dL (1.6-2.3); Phosphorus 3.7 mg/dL (2.5-4.5); Potassium 2.8 mmol/L (3.4-5.0); Sodium 127 mmol/L (137-145)
[2021-09-28] MEDS: ASPIRIN 325 MG TABLET PO (10:18)
[2021-09-28] MEDS: NICOTINE (*PBKC) 21 MG PATCH 1 PATCH TRANSDERM (10:18)
[2021-09-28] MEDS: SODIUM BICARBONATE TAB 650 MG TABLET 1300 MG PO ×3 (10:18→18:04)
[2021-09-28] MEDS: MAGNESIUM SULF 1 GM/D5W 100 ML 1 GM/100 ML BAG IVPB (10:18)
--- NOTE | 2021-09-28 10:25 | P.PNNP_ITS ---
Progress Note: A&P Assessment and Plan (1) Acute renal failure: Qualifiers: Acute renal failure type: unspecified Qualified Code(s): N17.9 - Acute kidney failure, unspecified Code(s): N17.9 - Acute kidney failure, unspecified Status: Acute Assessment and Plan: * likely due to several issues: * prerenal factors (significant dehydration) * COVID-19 infection * diuretic use prior to admission * NSAID use prior to admission * reaction to recent chemo/immunotherapy(?) * renal ultrasound without obstruction * urine electrolytes c/w prerenal azotemia; urine eosinophils pending still. * follow-up on serological testing (but GN or vascultiis seems less likely) . C4 is slightly low. * creatinine is improving with the fluids. (2) Metabolic acidosis: Code(s): E87.2 - Acidosis Status: Acute Assessment and Plan: * due to NILA and issues with GI loss/diarrhea * compensating with bicarb in IVFs as well as oral supplementation * Bicarbonate level is a little better (3) Hypokalemia: Code(s): E87.6 - Hypokalemia Status: Acute Assessment and Plan: * due to ongoing GI losses, acidosis, and possibly total body store depletion * replacing cautiously in the setting of NILA/ARF * use of oral and IV bicarbonate likely contributing * I am not sure if potassium tablets were being absorbed because of their slow absorption and possible rapid transit. So I switched to liquid oral potassium and hopefully this will improve potassium. * Diarrhea might be a little bit better also so this may help his potassium. (4) Acute diarrhea: Code(s): R19.7 - Diarrhea, unspecified Status: Acute Assessment and Plan: * as noted by history * Gastroenterology following * follow-up on stool studies * continue supportive therapy * Diarrhea slightly better. (5) COVID-19 virus infection: Code(s): U07.1 - COVID-19 Status: Acute Assessment and Plan: * no evidence of hypoxia at this time * continue isolation * follow respiratory status (6) Metastatic melanoma: Code(s): C79.9 - Secondary malignant neoplasm of unspecified site Status: Chronic Assessment and Plan: * known diagnosis * follows with Dr. Hobson (7) Hypertension: Code(s): I10 - Essential (primary) hypertension Status: Chronic Assessment and Plan: * Systolic 119 today. Will continue to follow. Subjective Date/time seen: 09/28/21 10:25 Interval history: patient still having copious amounts of diarrhea. He thinks is a little bit better though. In good spirits. Exam Narrative: General: WD/WN male/female in NAD Heart: normal S1 and S2; no rub Lungs: clear bilaterally Abdomen: soft, nontender, mild distension, positive bowel sounds Extremities: no cyanosis or clubbing; no edema Skin: No rash or subcu nodules Objective Data Vital Signs Vital Signs: Vital Signs - 24 hr 09/27/21 12:00 09/27/21 14:00 09/27/21 16:00 Temperature 36.6 C 36.9 C Pulse Rate 74 74 79 Respiratory Rate 14 26 H Blood Pressure 109/68 131/79 Pulse Oximetry 95 100 09/27/21 18:00 09/27/21 20:00 09/27/21 20:47 Temperature 37.2 C Pulse Rate 86 85 80 Respiratory Rate 20 Blood Pressure 123/59 L Pulse Oximetry 98
--- NOTE | 2021-09-28 10:25 | PM.PNNEP ---
Progress Note: A&P Assessment and Plan (1) Acute renal failure: Qualifiers: Acute renal failure type: unspecified Qualified Code(s): N17.9 - Acute kidney failure, unspecified Code(s): N17.9 - Acute kidney failure, unspecified Status: Acute Assessment and Plan: likely due to several issues: prerenal factors (significant dehydration) COVID-19 infection diuretic use prior to admission NSAID use prior to admission reaction to recent chemo/immunotherapy(?) renal ultrasound without obstruction urine electrolytes c/w prerenal azotemia; urine eosinophils pending still. follow-up on serological testing (but GN or vascultiis seems less likely) . C4 is slightly low. creatinine is improving with the fluids. (2) Metabolic acidosis: Code(s): E87.2 - Acidosis Status: Acute Assessment and Plan: due to NILA and issues with GI loss/diarrhea compensating with bicarb in IVFs as well as oral supplementation Bicarbonate level is a little better (3) Hypokalemia: Code(s): E87.6 - Hypokalemia Status: Acute Assessment and Plan: due to ongoing GI losses, acidosis, and possibly total body store depletion replacing cautiously in the setting of NILA/ARF use of oral and IV bicarbonate likely contributing I am not sure if potassium tablets were being absorbed because of their slow absorption and possible rapid transit. So I switched to liquid oral potassium and hopefully this will improve potassium. Diarrhea might be a little bit better also so this may help his potassium. (4) Acute diarrhea: Code(s): R19.7 - Diarrhea, unspecified Status: Acute Assessment and Plan: as noted by history Gastroenterology following follow-up on stool studies continue supportive therapy Diarrhea slightly better. (5) COVID-19 virus infection: Code(s): U07.1 - COVID-19 Status: Acute Assessment and Plan: no evidence of hypoxia at this time continue isolation follow respiratory status (6) Metastatic melanoma: Code(s): C79.9 - Secondary malignant neoplasm of unspecified site Status: Chronic Assessment and Plan: known diagnosis follows with Dr. Hobson (7) Hypertension: Code(s): I10 - Essential (primary) hypertension Status: Chronic Assessment and Plan: Systolic 119 today. Will continue to follow. Subjective Date/time seen: 09/28/21 10:25 Interval history: patient still having copious amounts of diarrhea. He thinks is a little bit better though. In good spirits. Exam Narrative: General: WD/WN male/female in NAD Heart: normal S1 and S2; no rub Lungs: clear bilaterally Abdomen: soft, nontender, mild distension, positive bowel sounds Extremities: no cyanosis or clubbing; no edema Skin: No rash or subcu nodules Objective Data Vital Signs Vital Signs: Vital Signs - 24 hr 09/27/21 12:00 09/27/21 14:00 09/27/21 16:00 Temperature 36.6 C 36.9 C Pulse Rate 74 74 79 Respiratory Rate 14 26 H Blood Pressure 109/68 131/79 Pulse Oximetry 95 100 09/27/21 18:00 09/27/21 20:00 09/27/21 20:47 Temperature 37.2 C Pulse Rate 86 85 80 Respiratory Rate 20 Blood Pressure 123/59 L Pulse Oximetry 98 09/27/21 22:00 09/27/21 23:35 09/28/21 00:00 Temperature 37.5 C Pulse Rate 90 85 87 Respiratory Rate 23 H Blood Pressure 125/56 L Pulse Oximetry 95 95 09/28/21 02:00 09/28/21 04:00 09/28/21 06:00 Temperature 37.1 C Pulse Rate 85 86 88 Respiratory Rate 20 Blood Pressure 116/62 Pulse Oximetry 98 09/28/21 08:00 Temperature 37.1 C Pulse Rate 90 Respiratory Rate 12 Blood Pressure 119/68 Pulse Oximetry 100 Intake/Output Intake/Output: Intake & Output 09/25/21 09/26/21 09/27/21 09/28/21 23:59 23:59 23:59 23:59 Intake Total 820 3750 3370 740 Output Total 60 1800 5100 3300 Balance 760 8139 -2837 -7570 M
[2021-09-28] MEDS: POTASSIUM CHLORIDE IV CONT (13:26)
[2021-09-28] MEDS: [UNRECOGNIZED DRUG - OTHER] IV CONT (13:26)
[2021-09-28] MEDS: carvediloL 12.5 MG TABLET PO ×2 (13:26→21:55)
[2021-09-28] MEDS: SODIUM BICARBONATE IV CONT (13:26)
--- NOTE | 2021-09-28 15:14 | PM.IMPN ---
Progress Note: A&P Assessment and Plan (1) Acute renal failure: Qualifiers: Acute renal failure type: unspecified Qualified Code(s): N17.9 - Acute kidney failure, unspecified Code(s): N17.9 - Acute kidney failure, unspecified Status: Acute Assessment and Plan: Patient had a Encarnacion catheter placed and he is draining dark manav urine. Urinalysis and urine culture have been collected. I did use in the acute renal failure protocol. Nephrology has been consulted. Continue with IV fluids. Renal ultrasound. Avoid any nephrotoxic medication. (2) Gastroenteritis: Code(s): K52.9 - Noninfective gastroenteritis and colitis, unspecified Status: Acute Assessment and Plan: Stool cultures have been obtained. GI has been consulted. Continue with Flagyl. (3) Metastatic disease: Code(s): C79.9 - Secondary malignant neoplasm of unspecified site Status: Acute Assessment and Plan: hx of melanoma upper middle back 08/19/2020 excision to upper back oct dx with metastatic melanoma with left gland involvement March, started palliative immunotherapy treatment with ipiliumab and nivoluab 4 cycles started 05/22/2021. left adrenal gland biopsy performed 04/11/2021 ct march 25 showef 3 left lower lobe pulmonary mass and left adrenal mass consistent with metastatic disease Patient aware 1. Interval increase in size of a now 4.1 cm left adrenal mass consistent with biopsy-proven metastatic melanoma. 2. No interval change in several solid pulmonary nodules, the largest measuring 7 mm and 11 mm in the left lower lobe concerning for additional metastatic disease. Consult Dr. Hobson (4) Hypertension: Code(s): I10 - Essential (primary) hypertension Status: Chronic Assessment and Plan: Continue with Coreg (5) Tobacco abuse: Code(s): Z72.0 - Tobacco use Status: Acute Assessment and Plan: Continue with nicotine patch. (6) COVID: Code(s): U07.1 - COVID-19 Status: Acute Assessment and Plan: Continue to monitor LDH and ferritin. Additional Plan 09/26/21 Creatinine down trending Nephro following on bicarb drip Continue vancomycin PO for C diff Rocephin for UTI Culture pending for urine Continue current care 09/27/21 creatinine down trending nephro managing renal failure C diff negative PO Vanco discontinued codeine added for cough seen by GI colonoscopy Wednesday cont current care inflammatory markers and CXR for am 09/28/21 renal fxn recovering cough improved colonoscopy tomorrow for hx of diarrhea for 3 weeks with negative stool studies baseline inflammatory markers drawn and CXR w PNA now visible on CXR cont current care Subjective Date/time seen: 09/28/21 15:14 pt recovering w treatment appears to be able to wean from O2 now, still w diarrhea but improved, Cscope tomorrow Exam Narrative: GEN: NAD, AAOx3, cooperative HEENT: NCAT, MMM, EOMI Neck: no JVD Heart: S1S2 RRR Lungs: CTA B/l Abd: soft, NT, ND Ext: moves all, no cyanosis, no clubbing, no edema Neuro: Cranial nerves intact no focal neurological deficits appreciated Psych: Mood and affect congruent Objective Data Vital Signs Vital Signs: Vital Signs - 24 hr 09/27/21 16:00 09/27/21 18:00 09/27/21 20:00 Temperature 98.5 F 99 F Pulse Rate 79 86 85 Respiratory Rate 26 H 20 Blood Pressure 131/79 123/59 L Pulse Oximetry 100 98 09/27/21 20:47 09/27/21 22:00 09/27/21 23:35 Temperature 99.5 F Pulse Rate 80 90 85 Respiratory Rate 23 H Blood Pressure 125/56 L Pulse Oximetry 95 09/28/21 00:00 09/28/21 02:00 09/28/21 04:00 Temperature 98.8 F Pulse Rate 87 85 86 Respiratory Rate 20 Blood Pressure 116/62 Pulse Oximetry 95 98 09/28/21 06:00 09/28/21 08:00 09/28/21 12:00 Temperature 98.8 F 97.2 F L Pulse Rate 88 90 82 Respiratory Rate 12 14 Blood Pressure 119/68 111/77 Pulse Oximetry 100 97
[2021-09-28 15:57] LABS: Potassium 2.9 mmol/L (3.4-5.0)
[2021-09-28] MEDS: polyethylene glycoL 3350 238 GM BOTTLE PO (18:05)
[2021-09-29] VITALS (22 sets, daily range): BP systolic 87–120; BP diastolic 55–79; PULSE 72–93; RESP 14–22; TEMP 36.1–37; O2SAT 96–99
[2021-09-29] MEDS: [UNRECOGNIZED DRUG - OTHER] IV CONT (04:43)
[2021-09-29] MEDS: SODIUM BICARBONATE IV CONT (04:43)
[2021-09-29] MEDS: POTASSIUM CHLORIDE IV CONT (04:43)
[2021-09-29] MEDS: POTASSIUM CHLORIDE 20 MEQ PACKET (FOR LIQUID) 40 MEQ PO ×4 (04:43→21:31)
[2021-09-29 05:18] LABS: Alanine Aminotransferase 27 U/L (4-50); Albumin Level 4.1 g/dL (3.5-5.1); Alkaline Phosphatase 116 U/L (38-126); Anion Gap 25 mmol/L (8-16); Aspartate Amino Transferase 43 U/L (17-59); Bilirubin,Total 0.5 mg/dL (0.2-1.3); Blood Urea Nitrogen 62 mg/dL (9-20); Calcium 8.7 mg/dL (8.4-10.2); Carbon Dioxide 19 mmol/L (22-30); Chloride 84 mmol/L (98-107); Estimated CRCL calculation 17 ml/min; Estimated Glomerular Filt Rate 15; Glucose 111 mg/dL (65-110); Potassium 2.7 mmol/L (3.4-5.0); Sodium 128 mmol/L (137-145)
[2021-09-29 05:21] LABS: Phosphorus 5.2 mg/dL (2.5-4.5)
[2021-09-29 05:27] LABS: Magnesium 2.2 mg/dL (1.6-2.3)
[2021-09-29] MEDS: NICOTINE (*PBKC) 21 MG PATCH 1 PATCH TRANSDERM (08:56)
[2021-09-29] MEDS: SODIUM BICARBONATE TAB 650 MG TABLET 1300 MG PO ×2 (08:57→15:36)
[2021-09-29 12:19] LABS: Anion Gap 24 mmol/L (8-16); Blood Urea Nitrogen 65 mg/dL (9-20); Calcium 8.9 mg/dL (8.4-10.2); Carbon Dioxide 22 mmol/L (22-30); Chloride 84 mmol/L (98-107); Estimated CRCL calculation 16 ml/min; Estimated Glomerular Filt Rate 14; Glucose 115 mg/dL (65-110); Potassium 3.4 mmol/L (3.4-5.0); Sodium 130 mmol/L (137-145)
--- NOTE | 2021-09-29 12:59 | WPDANESEPP ---
Anes - Eval Pre Procedure Procedure: Operation Date: 09/29/21 14:30 Proposed Procedures p Colonoscopy - Phu Morgan MD Date/Time: 09/29/21 12:59 Pre Op Diagnosis: aleja Patient Data Age: 61 Gender: M Height: 1.73 m Weight: 75.9 kg Last Vital Signs Temp 36.5 C 09/29/21 08:00 Pulse 84 09/29/21 10:00 Resp 16 09/29/21 08:00 BP 111/71 09/29/21 10:20 Pulse Ox 97 09/29/21 08:00 Allergies Allergy/AdvReac Type Severity Reaction Status Date / Time No Known Allergies Allergy Verified 09/10/21 08:54 Home Medications Medication Instructions Recorded Confirmed Type triamterene 37.5 1 cap PO DAILY 08/24/19 09/25/21 History mg-hydrochlorothiazide 25 mg capsule carvedilol 12.5 mg PO Q12H 08/31/19 09/25/21 History multivitamin 1 tablet PO DAILY 08/31/19 09/25/21 History hydrocodone-acetaminophen 1 tablet PO DAILY PRN 04/01/21 09/25/21 History meloxicam 15 mg PO DAILY 04/01/21 09/25/21 History aspirin 325 mg PO DAILY 07/23/21 09/25/21 History Laboratory Tests 09/28/21 09/29/21 09/29/21 15:44 04:32 04:32 Sodium 128 mmol/L L mmol/L (137-145) Potassium 2.9 mmol/L L mmol/L 2.7 mmol/L L* mmol/L (3.4-5.0) (3.4-5.0) Chloride 84 mmol/L L mmol/L (98-107) Carbon Dioxide 19 mmol/L L mmol/L (22-30) Anion Gap 25 mmol/L H mmol/L (8-16) BUN 62 mg/dL H mg/dL (9-20) Creatinine 4.20 mg/dL H mg/dL (0.7-1.3) Estim Creat Clear Calc 17 ml/min ml/min Estimated GFR 15 L (59 - ) Glucose 111 mg/dL H mg/dL (65-110) Calcium 8.7 mg/dL mg/dL (8.4-10.2) Phosphorus Magnesium 2.2 mg/dL mg/dL (1.6-2.3) Total Bilirubin 0.5 mg/dL mg/dL (0.2-1.3) AST 43 U/L U/L (17-59) ALT 27 U/L U/L (4-50) Alkaline Phosphatase 116 U/L U/L (38-126) Total Protein 7.0 g/dL g/dL (6.3-8.2) Albumin 4.1 g/dL g/dL (3.5-5.1) 09/29/21 09/29/21 04:32 12:04 Sodium 130 mmol/L L mmol/L (137-145) Potassium 3.4 mmol/L mmol/L (3.4-5.0) Chloride 84 mmol/L L mmol/L (98-107) Carbon Dioxide 22 mmol/L mmol/L (22-30) Anion Gap 24 mmol/L H mmol/L (8-16) BUN 65 mg/dL H mg/dL (9-20) Creatinine 4.40 mg/dL H mg/dL (0.7-1.3) Estim Creat Clear Calc 16 ml/min ml/min Estimated GFR 14 L (59 - ) Glucose 115 mg/dL H mg/dL (65-110) Calcium 8.9 mg/dL mg/dL (8.4-10.2) Phosphorus 5.2 mg/dL H mg/dL (2.5-4.5) Magnesium Total Bilirubin AST ALT Alkaline Phosphatase Total Protein Albumin Patient hx anesthesia problems: none Family hx anesthesia problems: none Results Review: All pre-operative results and documents have been reviewed as part of the pre-operative evaluation. [facility] Past Medical History Medical History Admission for fitting of Port-A-Cath Aftercare following surgery of the skin and subcutaneous tissue, NEC BMI 29.0-29.9,adult Encounter for surgical aftercare following surgery on the skin and subcutaneous tissue Hypercalcemia Hypertension Malignant melanoma of upper back Mass Mass on back Melanoma Osteoporosis PNA (pneumonia) Skin cancer Tobacco abuse Surgical History Surgical History History of appendectomy History of surgical removal of skin lesion Excision of 4 cm back mass Status post surgical removal of malignant neoplasm of skin Family History Family History Sibling Hypertension Father Colon cancer Cerebrovascular accident Social History Social History Social History: The patient currently lives with his stepson. The patie
--- NOTE | 2021-09-29 14:02 | P.PNNP_ITS ---
Progress Note: A&P Assessment and Plan (1) Acute renal failure: Qualifiers: Acute renal failure type: unspecified Qualified Code(s): N17.9 - Acute kidney failure, unspecified Code(s): N17.9 - Acute kidney failure, unspecified Status: Acute Assessment and Plan: * likely due to several issues: * prerenal factors (significant dehydration) * COVID-19 infection * diuretic use prior to admission * NSAID use prior to admission * reaction to recent chemo/immunotherapy(?) * renal ultrasound without obstruction * urine electrolytes c/w prerenal azotemia; urine eosinophils pending still. * follow-up on serological testing (but GN or vascultiis seems less likely) . C4 is slightly low. * creatinine has stablized (2) Metabolic acidosis: Code(s): E87.2 - Acidosis Status: Acute Assessment and Plan: * due to NILA and issues with GI loss/diarrhea * Bicarbonate better, at 22. Will change IV fluids to normal saline. (3) Hypokalemia: Code(s): E87.6 - Hypokalemia Status: Acute Assessment and Plan: * due to ongoing GI losses, acidosis, and possibly total body store depletion * replacing cautiously in the setting of NILA/ARF * use of oral and IV bicarbonate likely contributing * Since his low bicarbonate is better. We can cut back on the IV bicarb in this may help the potassium come up. * Will recheck the potassium today at 4:00 p.m. and see how it looks. (4) Acute diarrhea: Code(s): R19.7 - Diarrhea, unspecified Status: Acute Assessment and Plan: * as noted by history * Gastroenterology following * follow-up on stool studies * continue supportive therapy * Colonoscopy today (5) COVID-19 virus infection: Code(s): U07.1 - COVID-19 Status: Acute Assessment and Plan: * no evidence of hypoxia at this time * still on respiratory isolation * follow respiratory status (6) Metastatic melanoma: Code(s): C79.9 - Secondary malignant neoplasm of unspecified site Status: Chronic Assessment and Plan: * known diagnosis * follows with Dr. Hobson (7) Hypertension: Code(s): I10 - Essential (primary) hypertension Status: Chronic Assessment and Plan: * Systolic 113. Will continue to follow. Subjective Date/time seen: 09/29/21 14:02 Interval history: Patient had colonoscopy prep last night so had lots of bowel movements overnight. No chest pain or shortness of breath Exam Narrative: General: WD/WN male/female in NAD Heart: normal S1 and S2; no rub Lungs: clear to auscultation Abdomen: soft, nontender, mild distension, positive bowel sounds Extremities: no cyanosis or clubbing; no edema Skin: No rash Objective Data Vital Signs Vital Signs: Vital Signs - 24 hr 09/28/21 16:00 09/28/21 18:00 09/28/21 20:00 Temperature 36.6 C 37.0 C Pulse Rate 87 89 82 Respiratory Rate 12 18 Blood Pressure 95/73 L 109/71 Pulse Oximetry 97 100 09/28/21 21:55 09/28/21 22:00 09/28/21 23:17 Temperature Pulse Rate 85 81 83 Respiratory Rate 19 Blood Pressure Pulse Oximetry 99 09/29/21 00:00 09/29/21 01:48 09/29/21 02:00 Temperature 36.4 C L Pulse Rate 80 75 74 Respiratory Ra
--- NOTE | 2021-09-29 14:02 | PM.PNNEP ---
Progress Note: A&P Assessment and Plan (1) Acute renal failure: Qualifiers: Acute renal failure type: unspecified Qualified Code(s): N17.9 - Acute kidney failure, unspecified Code(s): N17.9 - Acute kidney failure, unspecified Status: Acute Assessment and Plan: likely due to several issues: prerenal factors (significant dehydration) COVID-19 infection diuretic use prior to admission NSAID use prior to admission reaction to recent chemo/immunotherapy(?) renal ultrasound without obstruction urine electrolytes c/w prerenal azotemia; urine eosinophils pending still. follow-up on serological testing (but GN or vascultiis seems less likely) . C4 is slightly low. creatinine has stablized (2) Metabolic acidosis: Code(s): E87.2 - Acidosis Status: Acute Assessment and Plan: due to NILA and issues with GI loss/diarrhea Bicarbonate better, at 22. Will change IV fluids to normal saline. (3) Hypokalemia: Code(s): E87.6 - Hypokalemia Status: Acute Assessment and Plan: due to ongoing GI losses, acidosis, and possibly total body store depletion replacing cautiously in the setting of NILA/ARF use of oral and IV bicarbonate likely contributing Since his low bicarbonate is better. We can cut back on the IV bicarb in this may help the potassium come up. Will recheck the potassium today at 4:00 p.m. and see how it looks. (4) Acute diarrhea: Code(s): R19.7 - Diarrhea, unspecified Status: Acute Assessment and Plan: as noted by history Gastroenterology following follow-up on stool studies continue supportive therapy Colonoscopy today (5) COVID-19 virus infection: Code(s): U07.1 - COVID-19 Status: Acute Assessment and Plan: no evidence of hypoxia at this time still on respiratory isolation follow respiratory status (6) Metastatic melanoma: Code(s): C79.9 - Secondary malignant neoplasm of unspecified site Status: Chronic Assessment and Plan: known diagnosis follows with Dr. Hobson (7) Hypertension: Code(s): I10 - Essential (primary) hypertension Status: Chronic Assessment and Plan: Systolic 113. Will continue to follow. Subjective Date/time seen: 09/29/21 14:02 Interval history: Patient had colonoscopy prep last night so had lots of bowel movements overnight. No chest pain or shortness of breath Exam Narrative: General: WD/WN male/female in NAD Heart: normal S1 and S2; no rub Lungs: clear to auscultation Abdomen: soft, nontender, mild distension, positive bowel sounds Extremities: no cyanosis or clubbing; no edema Skin: No rash Objective Data Vital Signs Vital Signs: Vital Signs - 24 hr 09/28/21 16:00 09/28/21 18:00 09/28/21 20:00 Temperature 36.6 C 37.0 C Pulse Rate 87 89 82 Respiratory Rate 12 18 Blood Pressure 95/73 L 109/71 Pulse Oximetry 97 100 09/28/21 21:55 09/28/21 22:00 09/28/21 23:17 Temperature Pulse Rate 85 81 83 Respiratory Rate 19 Blood Pressure Pulse Oximetry 99 09/29/21 00:00 09/29/21 01:48 09/29/21 02:00 Temperature 36.4 C L Pulse Rate 80 75 74 Respiratory Rate 14 Blood Pressure 87/65 L 100/63 Pulse Oximetry 99 09/29/21 03:29 09/29/21 04:00 09/29/21 06:00 Temperature 36.6 C Pulse Rate 76 75 84 Respiratory Rate 14 19 Blood Pressure 104/72 Pulse Oximetry 99 97 09/29/21 08:00 09/29/21 09:10 09/29/21 10:00 Temperature 36.5 C Pulse Rate 79 84 Respiratory Rate 16 Blood Pressure 92/72 L 87/62 L Pulse Oximetry 97 09/29/21 10:20 09/29/21 12:00 Temperature 37.0 C Pulse Rate 86 Respiratory Rate 18 Blood Pressure 111/71 120/74 Pulse Oximetry 98 Intake/Output Intake/Output: Intake & Output 09/26/21 09/27/21 09/28/21 09/29/21 23:59 23:59 23:59 23:59 Intake Total 3750 5070 2365 1645 Output Total 1800 5100 105
[2021-09-29] MEDS: LACTATED RINGERS 1,000 ML 150 ML IV CONT (14:06)
--- NOTE | 2021-09-29 14:13 | SUR.PREOP ---
Pre op and post op care in procedure room 3 due to COVID precautions.
--- NOTE | 2021-09-29 14:47 | PM.IMPN ---
Progress Note: A&P Assessment and Plan (1) Acute renal failure: Qualifiers: Acute renal failure type: unspecified Qualified Code(s): N17.9 - Acute kidney failure, unspecified Code(s): N17.9 - Acute kidney failure, unspecified Status: Acute Assessment and Plan: Patient had a Encarnacion catheter placed and he is draining dark manav urine. Urinalysis and urine culture have been collected. I did use in the acute renal failure protocol. Nephrology has been consulted. Continue with IV fluids. Renal ultrasound. Avoid any nephrotoxic medication. (2) Gastroenteritis: Code(s): K52.9 - Noninfective gastroenteritis and colitis, unspecified Status: Acute Assessment and Plan: Stool cultures have been obtained. GI has been consulted. Continue with Flagyl. (3) Metastatic disease: Code(s): C79.9 - Secondary malignant neoplasm of unspecified site Status: Acute Assessment and Plan: hx of melanoma upper middle back 08/19/2020 excision to upper back oct dx with metastatic melanoma with left gland involvement March, started palliative immunotherapy treatment with ipiliumab and nivoluab 4 cycles started 05/22/2021. left adrenal gland biopsy performed 04/11/2021 ct march 25 showef 3 left lower lobe pulmonary mass and left adrenal mass consistent with metastatic disease Patient aware 1. Interval increase in size of a now 4.1 cm left adrenal mass consistent with biopsy-proven metastatic melanoma. 2. No interval change in several solid pulmonary nodules, the largest measuring 7 mm and 11 mm in the left lower lobe concerning for additional metastatic disease. Consult Dr. Hobson (4) Hypertension: Code(s): I10 - Essential (primary) hypertension Status: Chronic Assessment and Plan: Continue with Coreg (5) Tobacco abuse: Code(s): Z72.0 - Tobacco use Status: Acute Assessment and Plan: Continue with nicotine patch. (6) COVID: Code(s): U07.1 - COVID-19 Status: Acute Assessment and Plan: Continue to monitor LDH and ferritin. Additional Plan 09/26/21 Creatinine down trending Nephro following on bicarb drip Continue vancomycin PO for C diff Rocephin for UTI Culture pending for urine Continue current care 09/27/21 creatinine down trending nephro managing renal failure C diff negative PO Vanco discontinued codeine added for cough seen by GI colonoscopy Wednesday cont current care inflammatory markers and CXR for am 09/28/21 renal fxn recovering cough improved colonoscopy tomorrow for hx of diarrhea for 3 weeks with negative stool studies baseline inflammatory markers drawn and CXR w PNA now visible on CXR cont current care 09/29/21 Renal function may be plateauing at this time Nephrology following IV antibiotics have been changed further recommendations Patient post colonoscopy no etiology noted for ongoing diarrhea Imodium p.r.n. Continue current care Anticipate discharge home after recovery of renal function Subjective Date/time seen: 09/29/21 14:47 doing very well remains on RA, diarrhea improved, results of colonoscopy discussed w pt glad he does not have cancer Exam Narrative: GEN: NAD, AAOx3, cooperative HEENT: NCAT, MMM, EOMI Neck: no JVD Heart: S1S2 RRR Lungs: CTA B/l Abd: soft, NT, ND Ext: moves all, no cyanosis, no clubbing, no edema Neuro: Cranial nerves intact no focal neurological deficits appreciated Psych: Mood and affect congruent Objective Data Vital Signs Vital Signs: Vital Signs - 24 hr 09/28/21 16:00 09/28/21 18:00 09/28/21 20:00 Temperature 98 F 98.6 F Pulse Rate 87 89 82 Respiratory Rate 12 18 Blood Pressure 95/73 L 109/71 Pulse Oximetry 97 100 09/28/21 21:55 09/28/21 22:00 09/28/21 23:17 Temperature Pulse Rate 85 81 83 Respiratory Rate 19 Blood Pressure Pulse Oximetry 99 09/29/21 00:00 09/29/21 01:48 09/29/21 02:00 Temperatu
[2021-09-29] MEDS: KCL 40 MEQ/D5/0.9% SOD CHL 1,000 ML 100 ML IV CONT (15:36)
[2021-09-29 17:47] LABS: Potassium 3.6 mmol/L (3.4-5.0)
[2021-09-29] MEDS: carvediloL 12.5 MG TABLET PO (21:31)
--- NOTE | 2021-09-29 22:44 | PC.NURSE ---
Report called to ROSI Bolden @[id number]. Pt to be transferred to room 327.
--- NOTE | 2021-09-29 23:55 | PC.NURSE ---
Received patient from IMU. Patient alert and oriented and introduced to staff.
[2021-09-30] VITALS (9 sets, daily range): BP systolic 105–138; BP diastolic 71–78; PULSE 74–83; RESP 16–20; TEMP 35.9–36.8; O2SAT 97–100
[2021-09-30] MEDS: KCL 40 MEQ/D5/0.9% SOD CHL 1,000 ML 100 ML IV CONT ×2 (01:21→12:27)
[2021-09-30] MEDS: POTASSIUM CHLORIDE 20 MEQ PACKET (FOR LIQUID) 40 MEQ PO ×3 (06:11→20:47)
[2021-09-30 07:42] LABS: D Dimer 1.15 ug/mL (<0.48)
[2021-09-30 07:51] LABS: Magnesium 2.1 mg/dL (1.6-2.3)
[2021-09-30 08:04] LABS: CRP 1.9 mg/dL (<1.0)
[2021-09-30 08:07] LABS: Alanine Aminotransferase 28 U/L (4-50); Albumin Level 3.8 g/dL (3.5-5.1); Alkaline Phosphatase 106 U/L (38-126); Anion Gap 18 mmol/L (8-16); Aspartate Amino Transferase 42 U/L (17-59); Bilirubin,Total 0.5 mg/dL (0.2-1.3); Blood Urea Nitrogen 53 mg/dL (9-20); Calcium 8.5 mg/dL (8.4-10.2); Carbon Dioxide 23 mmol/L (22-30); Chloride 91 mmol/L (98-107); Estimated CRCL calculation 27 ml/min; Estimated Glomerular Filt Rate 25; Glucose 151 mg/dL (65-110); Potassium 3.8 mmol/L (3.4-5.0); Sodium 132 mmol/L (137-145)
[2021-09-30 08:10] LABS: Albumin Level 3.8 g/dL (3.5-5.1); Anion Gap 19 mmol/L (8-16); Blood Urea Nitrogen 52 mg/dL (9-20); Calcium 8.5 mg/dL (8.4-10.2); Carbon Dioxide 23 mmol/L (22-30); Chloride 91 mmol/L (98-107); Estimated CRCL calculation 27 ml/min; Estimated Glomerular Filt Rate 25; Glucose 151 mg/dL (65-110); Phosphorus 2.7 mg/dL (2.5-4.5); Potassium 3.9 mmol/L (3.4-5.0); Sodium 133 mmol/L (137-145)
[2021-09-30] MEDS: carvediloL 12.5 MG TABLET PO ×2 (09:56→20:47)
[2021-09-30] MEDS: SODIUM BICARBONATE TAB 650 MG TABLET 1300 MG PO ×3 (09:57→16:55)
[2021-09-30] MEDS: NICOTINE (*PBKC) 21 MG PATCH 1 PATCH TRANSDERM (09:58)
[2021-09-30] MEDS: ASPIRIN 325 MG TABLET PO (09:58)
--- NOTE | 2021-09-30 17:11 | P.PNNP_ITS ---
Progress Note: A&P Assessment and Plan (1) Acute renal failure: Qualifiers: Acute renal failure type: unspecified Qualified Code(s): N17.9 - Acute kidney failure, unspecified Code(s): N17.9 - Acute kidney failure, unspecified Status: Acute Assessment and Plan: * likely due to several issues: * prerenal factors (significant dehydration) * COVID-19 infection * diuretic use prior to admission * NSAID use prior to admission * reaction to recent chemo/immunotherapy(?) * renal ultrasound without obstruction * urine electrolytes c/w prerenal azotemia; urine eosinophils pending still. * follow-up on serological testing (but GN or vascultiis seems less likely) . C4 is slightly low. * creatinine is down to 2.6 (2) Metabolic acidosis: Code(s): E87.2 - Acidosis Status: Acute Assessment and Plan: * due to NILA and issues with GI loss/diarrhea * resolved but on oral bicarb (3) Hypokalemia: Code(s): E87.6 - Hypokalemia Status: Acute Assessment and Plan: * due to ongoing GI losses, acidosis, and possibly total body store depletion * replacing cautiously in the setting of NILA/ARF * K is normal today (4) Acute diarrhea: Code(s): R19.7 - Diarrhea, unspecified Status: Acute Assessment and Plan: * as noted by history * Gastroenterology following * follow-up on stool studies * continue supportive therapy * scope shows difuse colitis. (5) COVID-19 virus infection: Code(s): U07.1 - COVID-19 Status: Acute Assessment and Plan: * no evidence of hypoxia at this time * still on respiratory isolation * follow respiratory status (6) Metastatic melanoma: Code(s): C79.9 - Secondary malignant neoplasm of unspecified site Status: Chronic Assessment and Plan: * known diagnosis * follows with Dr. Hobson (7) Hypertension: Code(s): I10 - Essential (primary) hypertension Status: Chronic Assessment and Plan: * Systolic 123. Will continue to follow. Subjective Date/time seen: 09/30/21 17:11 Interval history: Patient had colonoscopy yesterday. No chest pain or shortness of breath diarrhea continues. Exam Narrative: General: WD/WN male/female in NAD Heart: normal S1 and S2; no rub Lungs: clear Abdomen: soft, nontender, mild distension, positive bowel sounds Extremities: no edema Skin: No rash Objective Data Vital Signs Vital Signs: Vital Signs - 24 hr 09/29/21 18:00 09/29/21 20:00 09/29/21 20:48 Temperature 36.1 C L Pulse Rate 86 85 93 Respiratory Rate 20 Blood Pressure 116/72 Pulse Oximetry 99 09/29/21 21:31 09/29/21 22:00 09/30/21 00:00 Temperature 36.1 C L Pulse Rate 83 86 77 Respiratory Rate 16 Blood Pressure 109/76 Pulse Oximetry 100 09/30/21 04:00 09/30/21 08:00 09/30/21 08:02 Temperature 35.9 C L 36.8 C Pulse Rate 77 83 76 Respiratory Rate 16 16 Blood Pressure 115/75 105/71 Pulse Oximetry 98 97 09/30/21 09:56 09/30/21 12:00 09/30/21 12:02 Temperature 36.4 C L Pulse Rate 77 78 83 Respiratory Rate 20 Blood Pressure 123/73
--- NOTE | 2021-09-30 17:11 | PM.PNNEP ---
Progress Note: A&P Assessment and Plan (1) Acute renal failure: Qualifiers: Acute renal failure type: unspecified Qualified Code(s): N17.9 - Acute kidney failure, unspecified Code(s): N17.9 - Acute kidney failure, unspecified Status: Acute Assessment and Plan: likely due to several issues: prerenal factors (significant dehydration) COVID-19 infection diuretic use prior to admission NSAID use prior to admission reaction to recent chemo/immunotherapy(?) renal ultrasound without obstruction urine electrolytes c/w prerenal azotemia; urine eosinophils pending still. follow-up on serological testing (but GN or vascultiis seems less likely) . C4 is slightly low. creatinine is down to 2.6 (2) Metabolic acidosis: Code(s): E87.2 - Acidosis Status: Acute Assessment and Plan: due to NILA and issues with GI loss/diarrhea resolved but on oral bicarb (3) Hypokalemia: Code(s): E87.6 - Hypokalemia Status: Acute Assessment and Plan: due to ongoing GI losses, acidosis, and possibly total body store depletion replacing cautiously in the setting of NILA/ARF K is normal today (4) Acute diarrhea: Code(s): R19.7 - Diarrhea, unspecified Status: Acute Assessment and Plan: as noted by history Gastroenterology following follow-up on stool studies continue supportive therapy scope shows difuse colitis. (5) COVID-19 virus infection: Code(s): U07.1 - COVID-19 Status: Acute Assessment and Plan: no evidence of hypoxia at this time still on respiratory isolation follow respiratory status (6) Metastatic melanoma: Code(s): C79.9 - Secondary malignant neoplasm of unspecified site Status: Chronic Assessment and Plan: known diagnosis follows with Dr. Hobson (7) Hypertension: Code(s): I10 - Essential (primary) hypertension Status: Chronic Assessment and Plan: Systolic 123. Will continue to follow. Subjective Date/time seen: 09/30/21 17:11 Interval history: Patient had colonoscopy yesterday. No chest pain or shortness of breath diarrhea continues. Exam Narrative: General: WD/WN male/female in NAD Heart: normal S1 and S2; no rub Lungs: clear Abdomen: soft, nontender, mild distension, positive bowel sounds Extremities: no edema Skin: No rash Objective Data Vital Signs Vital Signs: Vital Signs - 24 hr 09/29/21 18:00 09/29/21 20:00 09/29/21 20:48 Temperature 36.1 C L Pulse Rate 86 85 93 Respiratory Rate 20 Blood Pressure 116/72 Pulse Oximetry 99 09/29/21 21:31 09/29/21 22:00 09/30/21 00:00 Temperature 36.1 C L Pulse Rate 83 86 77 Respiratory Rate 16 Blood Pressure 109/76 Pulse Oximetry 100 09/30/21 04:00 09/30/21 08:00 09/30/21 08:02 Temperature 35.9 C L 36.8 C Pulse Rate 77 83 76 Respiratory Rate 16 16 Blood Pressure 115/75 105/71 Pulse Oximetry 98 97 09/30/21 09:56 09/30/21 12:00 09/30/21 12:02 Temperature 36.4 C L Pulse Rate 77 78 83 Respiratory Rate 20 Blood Pressure 123/73 Pulse Oximetry 97 Intake/Output Intake/Output: Intake & Output 09/27/21 09/28/21 09/29/21 09/30/21 23:59 23:59 23:59 23:59 Intake Total 3370 2365 2485 4290 Output Total 5100 57462 1800 500 Balance -1730 -8158 68 3790 Meds/Results Medications: Active Medications Generic Name Dose Route Start Last Admin Trade Name Freq PRN Reason Stop Dose Admin Hydrocodone Bitart/Acetaminophen 1 tab 09/25/21 16:22 09/26/21 05:19 Hydrocodone/Acetaminophen (*Crx) 7.5-325 Mg Tablet PO 1 tab DAILY PRN Administration Pain Aspirin 325 mg 09/26/21 09:00 09/30/21 09:58 Aspirin 325 Mg Tablet PO 325 mg DAILY BRANDY Administration Carvedilol 12.5 mg 09/25/21 21:00 09/30/21 09:56 Carvedilol 12.5 Mg Tablet PO 12.5 mg Q12HR BRANDY Administration Guaifenesin/Codeine P
--- NOTE | 2021-09-30 18:34 | PM.IMPN ---
Progress Note: A&P Assessment and Plan (1) Acute renal failure: Qualifiers: Acute renal failure type: unspecified Qualified Code(s): N17.9 - Acute kidney failure, unspecified Code(s): N17.9 - Acute kidney failure, unspecified Status: Acute Assessment and Plan: Recovering acute kidney injury. Likely prerenal versus ischemic ATN in the setting of dehydration, COVID-19 infection, per diuretic use, prior NSAID use. There may be an element of reaction to recent chemo/immunotherapy. Renal ultrasound report was reviewed; there is no obstruction. Creatinine is improving from 4-2.6 which is very encouraging. Appreciate Nephrology recommendations. (2) Gastroenteritis: Code(s): K52.9 - Noninfective gastroenteritis and colitis, unspecified Status: Acute Assessment and Plan: Stool cultures have been obtained. GI has been consulted. Continue with Flagyl. Patient underwent colonoscopy yesterday. He was diagnosed with melanosis coli, colitis, diverticulosis without perforation, abscess or bleeding. (3) Metastatic disease: Code(s): C79.9 - Secondary malignant neoplasm of unspecified site Status: Acute Assessment and Plan: hx of melanoma upper middle back 08/19/2020 excision to upper back oct dx with metastatic melanoma with left gland involvement March, started palliative immunotherapy treatment with ipiliumab and nivoluab 4 cycles started 05/22/2021. left adrenal gland biopsy performed 04/11/2021 ct march 25 showef 3 left lower lobe pulmonary mass and left adrenal mass consistent with metastatic disease Patient aware 1. Interval increase in size of a now 4.1 cm left adrenal mass consistent with biopsy-proven metastatic melanoma. 2. No interval change in several solid pulmonary nodules, the largest measuring 7 mm and 11 mm in the left lower lobe concerning for additional metastatic disease. Dr. Hobson was consulted; follow up his recommendations. (4) Hypertension: Code(s): I10 - Essential (primary) hypertension Status: Chronic Assessment and Plan: Continue with Coreg. Hold for systolic BP less than 130/80. (5) Tobacco abuse: Code(s): Z72.0 - Tobacco use Status: Acute Assessment and Plan: Continue with nicotine patch. (6) COVID: Code(s): U07.1 - COVID-19 Status: Acute Assessment and Plan: Continue to monitor LDH and ferritin. Currently patient is fairly asymptomatic not currently requiring oxygen supplementation. Additional Plan 09/26/21 Creatinine down trending Nephro following on bicarb drip Continue vancomycin PO for C diff Rocephin for UTI Culture pending for urine Continue current care 09/27/21 creatinine down trending nephro managing renal failure C diff negative PO Vanco discontinued codeine added for cough seen by GI colonoscopy Wednesday cont current care inflammatory markers and CXR for am 09/28/21 renal fxn recovering cough improved colonoscopy tomorrow for hx of diarrhea for 3 weeks with negative stool studies baseline inflammatory markers drawn and CXR w PNA now visible on CXR cont current care 09/29/21 Renal function may be plateauing at this time Nephrology following IV antibiotics have been changed further recommendations Patient post colonoscopy no etiology noted for ongoing diarrhea Imodium p.r.n. Continue current care Anticipate discharge home after recovery of renal function. 09/30/21 Renal function improving from 4-2.6; this is very encouraging. Nephrology following For allergies started for management of colitis. Patient post colonoscopy no etiology noted for ongoing diarrhea Imodium p.r.n. 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 Follow-up Dr. Hobson recommendations. Subjective Date/time seen: 09/30/21 18:34 S: Patient was seen examined at the bedside he is in a very good spirit. He did not like his dinner b
--- NOTE | 2021-09-30 18:38 | WPDANESPN ---
Anes - Prog Note Post-Op Date/Time: 09/30/21 18:38 Cardiovascular status: normal Respiratory status: normal Airway patency: baseline Mental status: baseline Post-Op hydration status: normal Vital Signs: Last Vital Signs Temp 36.4 C L 09/30/21 12:00 Pulse 83 09/30/21 12:02 Resp 20 09/30/21 12:00 BP 123/73 09/30/21 12:00 Pulse Ox 97 09/30/21 12:00 Pain Score (VAS): 0 I/O: Intake & Output 09/30/21 09/30/21 09/30/21 07:59 15:59 23:59 Intake Total 1200 1290 2350 Output Total 720 Balance 1200 1290 1630 Laboratory Tests 09/28/21 05:33 09/30/21 06:34 09/30/21 09/30/21 09/30/21 06:34 06:34 06:34 D-Dimer Sodium 133 L 132 L Potassium 3.9 3.8 Chloride 91 L 91 L Carbon Dioxide 23 23 Anion Gap 19 H 18 H BUN 52 H D 53 H Creatinine 2.60 H 2.60 H Estim Creat Clear Calc 27 27 Estimated GFR 25 L 25 L Glucose 151 H 151 H Calcium 8.5 8.5 Phosphorus 2.7 Magnesium 2.1 Total Bilirubin 0.5 AST 42 ALT 28 Alkaline Phosphatase 106 C-Reactive Protein Total Protein 7.0 Albumin 3.8 3.8 09/30/21 09/30/21 06:34 06:34 D-Dimer 1.15 H Sodium Potassium Chloride Carbon Dioxide Anion Gap BUN Creatinine Estim Creat Clear Calc Estimated GFR Glucose Calcium Phosphorus Magnesium Total Bilirubin AST ALT Alkaline Phosphatase C-Reactive Protein 1.9 H Total Protein Albumin Microbiology 09/25/21 15:12 Stool Stool for WBCs - Final 09/25/21 15:12 Stool Escherichia coli Shiga Toxins - Final 09/25/21 15:12 Stool Salmonella/Shigella Culture - Final 09/25/21 15:12 Stool Clostridioides difficile Toxin Assay - Final 09/25/21 15:12 Stool Campylobacter Antigen Assay - Final 09/25/21 15:12 Stool Cryptosporidium Exam - Final 09/25/21 15:12 Stool Giardia Antigen (ARIELLE) - Final Post-procedural complaints: none Patient Feedback: Patient satisfied with anesthetic care.
[2021-09-30 19:19] LABS: Osmolality, Urine 309 mOsm/kg (50-1200)
[2021-09-30 19:31] LABS: Anti Glomerular Basement Memb <1.0 AI (<1.0)
[2021-09-30 22:16] LABS: SM Antibody <1.0; SM/RNP Antibody <1.0
[2021-10-01] VITALS: BP 107/61; PULSE 76; RESP 18; TEMP 36.4; O2SAT 98
[2021-10-01 04:00] VITALS: BP 109/54; PULSE 74; RESP 15; TEMP 36.7; O2SAT 99
[2021-10-01] MEDS: POTASSIUM CHLORIDE 20 MEQ PACKET (FOR LIQUID) 40 MEQ PO ×3 (06:10→20:46)
[2021-10-01 07:14] LABS: Hematocrit 31.1 % (42.0-52.0); Hemoglobin 10.9 g/dL (14.0-18.0); Mean Corpuscular Hemoglobin 31.6 pg (26-34); Mean Corpuscular Volume 90.1 fl (80-100); Mean Platelet Volume 10.1 fl (7.4-10.4); Platelet Count Result 240 k/mm3 (150-375); Red Blood Count 3.45 M/mm3 (4.6-6.20); Red Cell Distribution Width 13.8 % (11.5-14.5); White Blood Count 9.1 K/mm3 (4.5-10.0)
[2021-10-01 07:31] LABS: Alanine Aminotransferase 21 U/L (4-50); Albumin Level 3.2 g/dL (3.5-5.1); Alkaline Phosphatase 98 U/L (38-126); Anion Gap 15 mmol/L (8-16); Aspartate Amino Transferase 27 U/L (17-59); Bilirubin,Total 0.3 mg/dL (0.2-1.3); Blood Urea Nitrogen 33 mg/dL (9-20); Calcium 8.3 mg/dL (8.4-10.2); Carbon Dioxide 19 mmol/L (22-30); Chloride 100 mmol/L (98-107); Estimated CRCL calculation 43 ml/min; Estimated Glomerular Filt Rate 44; Glucose 126 mg/dL (65-110); Magnesium 1.7 mg/dL (1.6-2.3); Phosphorus 2.1 mg/dL (2.5-4.5); Potassium 3.6 mmol/L (3.4-5.0); Sodium 134 mmol/L (137-145)
[2021-10-01 08:00] VITALS: O2SAT 99
[2021-10-01] MEDS: ASPIRIN 325 MG TABLET PO (09:24)
[2021-10-01] MEDS: SODIUM BICARBONATE TAB 650 MG TABLET 1300 MG PO ×3 (09:24→18:19)
[2021-10-01 09:25] VITALS: PULSE 76
[2021-10-01] MEDS: carvediloL 12.5 MG TABLET PO (09:25)
[2021-10-01] MEDS: NICOTINE (*PBKC) 21 MG PATCH 1 PATCH TRANSDERM (09:25)
[2021-10-01] MEDS: KCL 40 MEQ/D5/0.9% SOD CHL 1,000 ML 100 ML IV CONT ×3 (09:36→20:45)
--- NOTE | 2021-10-01 13:00 | PM.IMPN ---
Progress Note: A&P Assessment and Plan (1) Acute renal failure: Qualifiers: Acute renal failure type: unspecified Qualified Code(s): N17.9 - Acute kidney failure, unspecified Code(s): N17.9 - Acute kidney failure, unspecified Status: Acute Assessment and Plan: Recovering acute kidney injury. Likely prerenal versus ischemic ATN in the setting of dehydration, COVID-19 infection, per diuretic use, prior NSAID use. There may be an element of reaction to recent chemo/immunotherapy. Renal ultrasound report was reviewed; there is no obstruction. Creatinine is improving from 4-2.6 which is very encouraging. Appreciate Nephrology recommendations. (2) Gastroenteritis: Code(s): K52.9 - Noninfective gastroenteritis and colitis, unspecified Status: Acute Assessment and Plan: Patient reports the persistent diarrhea despite Flagyl. Stool cultures have been obtained. GI has been consulted. Continue with Flagyl. Patient underwent colonoscopy on 09/29. He was diagnosed with melanosis coli, colitis, diverticulosis without perforation, abscess or bleeding. (3) Metastatic disease: Code(s): C79.9 - Secondary malignant neoplasm of unspecified site Status: Acute Assessment and Plan: HIstory of melanoma upper middle back 08/19/2020 excision to upper back oct dx with metastatic melanoma with left gland involvement March, started palliative immunotherapy treatment with ipiliumab and nivoluab 4 cycles started 05/22/2021. left adrenal gland biopsy performed 04/11/2021 ct march 25 showef 3 left lower lobe pulmonary mass and left adrenal mass consistent with metastatic disease Patient aware 1. Interval increase in size of a now 4.1 cm left adrenal mass consistent with biopsy-proven metastatic melanoma. 2. No interval change in several solid pulmonary nodules, the largest measuring 7 mm and 11 mm in the left lower lobe concerning for additional metastatic disease. Dr. Hobson was consulted; follow up his recommendations. (4) Hypertension: Code(s): I10 - Essential (primary) hypertension Status: Chronic Assessment and Plan: Hold Coreg systolic BP less than 130/80. (5) Tobacco abuse: Code(s): Z72.0 - Tobacco use Status: Acute Assessment and Plan: Continue with nicotine patch. (6) COVID: Code(s): U07.1 - COVID-19 Status: Acute Assessment and Plan: Continue to monitor LDH and ferritin. Currently patient is fairly asymptomatic not currently requiring oxygen supplementation. Additional Plan 09/26/21 Creatinine down trending Nephro following on bicarb drip Continue vancomycin PO for C diff Rocephin for UTI Culture pending for urine Continue current care 09/27/21 creatinine down trending nephro managing renal failure C diff negative PO Vanco discontinued codeine added for cough seen by GI colonoscopy Wednesday cont current care inflammatory markers and CXR for am 09/28/21 renal fxn recovering cough improved colonoscopy tomorrow for hx of diarrhea for 3 weeks with negative stool studies baseline inflammatory markers drawn and CXR w PNA now visible on CXR cont current care 09/29/21 Renal function may be plateauing at this time Nephrology following IV antibiotics have been changed further recommendations Patient post colonoscopy no etiology noted for ongoing diarrhea Imodium p.r.n. Continue current care Anticipate discharge home after recovery of renal function. 09/30/21 Renal function improving from 4-2.6; this is very encouraging. Nephrology following Flagyl started for management of colitis. Patient post colonoscopy no etiology noted for ongoing diarrhea Imodium p.r.n. 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 Follow-up Dr. Hobson recommendations. 09/30/21 Renal function improving with creatinine from 2.6 to 1.6; this is very encouraging. Nephrology following
--- NOTE | 2021-10-01 14:29 | P.PNNP_ITS ---
Progress Note: A&P Assessment and Plan (1) Acute renal failure: Qualifiers: Acute renal failure type: unspecified Qualified Code(s): N17.9 - Acute kidney failure, unspecified Code(s): N17.9 - Acute kidney failure, unspecified Status: Acute Assessment and Plan: * likely due to several issues: * prerenal factors (significant dehydration) * COVID-19 infection * diuretic use prior to admission * NSAID use prior to admission * reaction to recent chemo/immunotherapy(?) * renal ultrasound without obstruction * urine electrolytes c/w prerenal azotemia; * follow-up on serological testing (but GN or vascultiis seems less likely) . C4 is slightly low. * creatinine is down to 1.6 (2) Metabolic acidosis: Code(s): E87.2 - Acidosis Status: Acute Assessment and Plan: * due to NILA and issues with GI loss/diarrhea * resolved but on oral bicarb (3) Hypokalemia: Code(s): E87.6 - Hypokalemia Status: Acute Assessment and Plan: * due to ongoing GI losses, acidosis, and possibly total body store depletion * K is normal today (4) Acute diarrhea: Code(s): R19.7 - Diarrhea, unspecified Status: Acute Assessment and Plan: * as noted by history * Gastroenterology following * follow-up on stool studies * continue supportive therapy * scope shows difuse colitis. * Imodium does not touch it (5) COVID-19 virus infection: Code(s): U07.1 - COVID-19 Status: Acute Assessment and Plan: * no evidence of hypoxia at this time * still on respiratory isolation * follow respiratory status (6) Metastatic melanoma: Code(s): C79.9 - Secondary malignant neoplasm of unspecified site Status: Chronic Assessment and Plan: * known diagnosis * follows with Dr. Hobson (7) Hypertension: Code(s): I10 - Essential (primary) hypertension Status: Chronic Assessment and Plan: * Systolic below 130 Subjective Date/time seen: 10/01/21 14:29 Interval history: Patient had colonoscopy yesterday. No chest pain or shortness of breath diarrhea continues. If it weren't for the diarrhea I would be fine. Exam Narrative: General: WD/WN male/female in NAD Heart: normal S1 and S2; no rub Lungs: clear bilaterally Abdomen: soft, nontender, mild distension, positive bowel sounds Extremities: no edema Skin: No rash or subcu nodules Objective Data Vital Signs Vital Signs: Vital Signs - 24 hr 09/30/21 16:00 09/30/21 20:00 10/01/21 00:00 Temperature 36.3 C L 36.7 C 36.4 C Pulse Rate 78 74 76 Respiratory Rate 18 16 18 Blood Pressure 138/78 118/76 107/61 Pulse Oximetry 98 97 98 10/01/21 04:00 10/01/21 09:25 Temperature 36.7 C Pulse Rate 74 76 Respiratory Rate 15 Blood Pressure 109/54 L Pulse Oximetry 99 Intake/Output Intake/Output: Intake & Output 09/28/21 09/29/21 09/30/21 10/01/21 23:59 23:59 23:59 23:59 Intake Total 2365 9255 6560 2250 Output Total 28155 1800 720 300 Balance -8135 687 5815 1950 Meds/Results Medications: Active Medications Generic Name Dose Route Start Last Admin Trade Name Suhailq PRN Polina
--- NOTE | 2021-10-01 14:29 | PM.PNNEP ---
Progress Note: A&P Assessment and Plan (1) Acute renal failure: Qualifiers: Acute renal failure type: unspecified Qualified Code(s): N17.9 - Acute kidney failure, unspecified Code(s): N17.9 - Acute kidney failure, unspecified Status: Acute Assessment and Plan: likely due to several issues: prerenal factors (significant dehydration) COVID-19 infection diuretic use prior to admission NSAID use prior to admission reaction to recent chemo/immunotherapy(?) renal ultrasound without obstruction urine electrolytes c/w prerenal azotemia; follow-up on serological testing (but GN or vascultiis seems less likely) . C4 is slightly low. creatinine is down to 1.6 (2) Metabolic acidosis: Code(s): E87.2 - Acidosis Status: Acute Assessment and Plan: due to NILA and issues with GI loss/diarrhea resolved but on oral bicarb (3) Hypokalemia: Code(s): E87.6 - Hypokalemia Status: Acute Assessment and Plan: due to ongoing GI losses, acidosis, and possibly total body store depletion K is normal today (4) Acute diarrhea: Code(s): R19.7 - Diarrhea, unspecified Status: Acute Assessment and Plan: as noted by history Gastroenterology following follow-up on stool studies continue supportive therapy scope shows difuse colitis. Imodium does not touch it (5) COVID-19 virus infection: Code(s): U07.1 - COVID-19 Status: Acute Assessment and Plan: no evidence of hypoxia at this time still on respiratory isolation follow respiratory status (6) Metastatic melanoma: Code(s): C79.9 - Secondary malignant neoplasm of unspecified site Status: Chronic Assessment and Plan: known diagnosis follows with Dr. Hobson (7) Hypertension: Code(s): I10 - Essential (primary) hypertension Status: Chronic Assessment and Plan: Systolic below 130 Subjective Date/time seen: 10/01/21 14:29 Interval history: Patient had colonoscopy yesterday. No chest pain or shortness of breath diarrhea continues. If it weren't for the diarrhea I would be fine. Exam Narrative: General: WD/WN male/female in NAD Heart: normal S1 and S2; no rub Lungs: clear bilaterally Abdomen: soft, nontender, mild distension, positive bowel sounds Extremities: no edema Skin: No rash or subcu nodules Objective Data Vital Signs Vital Signs: Vital Signs - 24 hr 09/30/21 16:00 09/30/21 20:00 10/01/21 00:00 Temperature 36.3 C L 36.7 C 36.4 C Pulse Rate 78 74 76 Respiratory Rate 18 16 18 Blood Pressure 138/78 118/76 107/61 Pulse Oximetry 98 97 98 10/01/21 04:00 10/01/21 09:25 Temperature 36.7 C Pulse Rate 74 76 Respiratory Rate 15 Blood Pressure 109/54 L Pulse Oximetry 99 Intake/Output Intake/Output: Intake & Output 09/28/21 09/29/21 09/30/21 10/01/21 23:59 23:59 23:59 23:59 Intake Total 2365 3805 6342 2250 Output Total 95964 1800 720 300 Balance -8135 685 5840 1950 Meds/Results Medications: Active Medications Generic Name Dose Route Start Last Admin Trade Name Freq PRN Reason Stop Dose Admin Hydrocodone Bitart/Acetaminophen 1 tab 09/25/21 16:22 09/26/21 05:19 Hydrocodone/Acetaminophen (*Crx) 7.5-325 Mg Tablet PO 1 tab DAILY PRN Administration Pain Aspirin 325 mg 09/26/21 09:00 10/01/21 09:24 Aspirin 325 Mg Tablet PO 325 mg DAILY BRANDY Administration Carvedilol 12.5 mg 09/25/21 21:00 10/01/21 09:25 Carvedilol 12.5 Mg Tablet PO 12.5 mg Q12HR BRANDY Administration Guaifenesin/Codeine Phosphate 10 ml 09/27/21 14:27 09/28/21 03:36 Guaifenesin/Codeine (*Crx) 200/20 Mg 10 Ml Syrup PO 10 ml Q4H PRN Administration Cough Ceftriaxone Sodium/Dextrose 1 gm in 50 mls @ 100 mls/hr 09/26/21 09:00 10/01/21 09:24 Rocephin 1 Gm/D5w 50 Ml IVPB 100 mls/hr Q24H BRANDY Administration Potassium Chloride/
[2021-10-01 16:00] VITALS: BP 130/77; PULSE 76; RESP 18; TEMP 36.1; O2SAT 99
[2021-10-01 16:26] LABS: Chloride Rand Ur 41 mmol/L (32-290); Chloride/Creatinine Rand Ur 19 (23-275); Creatinine Random Urine 221 mg/dL (20-320)
[2021-10-01 20:00] VITALS: BP 140/75; PULSE 79; RESP 16; TEMP 36.7; O2SAT 99
[2021-10-01 20:39] LABS: Anti Streptolysin O Screen <50 IU/mL (<200)
[2021-10-01 21:03] LABS: Albumin 3.6 g/dL (3.8-4.8); Alpha 1 Globulin 0.6 g/dL (0.2-0.3); Alpha 2 Globulin 0.9 g/dL (0.5-0.9); Beta 1 Globulin 0.4 g/dL (0.4-0.6); Gamma Globulin 1.1 g/dL (0.8-1.7)
[2021-10-02] VITALS: BP 127/77; PULSE 78; RESP 18; TEMP 36.6; O2SAT 100
[2021-10-02 03:27] LABS: Anti Nuclear Antibody Pattern Nuclear, Speckled
[2021-10-02 04:00] VITALS: BP 112/65; PULSE 78; RESP 16; TEMP 36.7; O2SAT 96
[2021-10-02] MEDS: KCL 40 MEQ/D5/0.9% SOD CHL 1,000 ML 100 ML IV CONT (05:39)
[2021-10-02] MEDS: POTASSIUM CHLORIDE 20 MEQ PACKET (FOR LIQUID) 40 MEQ PO ×2 (05:39→12:53)
--- NOTE | 2021-10-02 06:55 | P.PNNP_ITS ---
Progress Note: A&P Assessment and Plan (1) Acute renal failure: Qualifiers: Acute renal failure type: unspecified Qualified Code(s): N17.9 - Acute kidney failure, unspecified Code(s): N17.9 - Acute kidney failure, unspecified Status: Acute Assessment and Plan: * likely due to several issues: * prerenal factors (significant dehydration) * COVID-19 infection * diuretic use prior to admission * NSAID use prior to admission * reaction to recent chemo/immunotherapy(?) * renal ultrasound without obstruction * urine electrolytes c/w prerenal azotemia; * C4 slightly low. LEONARDO positive 1-80. SM, [employer], DNA, GBM are all okay. * Some serology is still pending * creatinine is down to 1.6 yesterday. Today's labs have not been drawn yet (2) Metabolic acidosis: Code(s): E87.2 - Acidosis Status: Acute Assessment and Plan: * Resolved (3) Hypokalemia: Code(s): E87.6 - Hypokalemia Status: Acute Assessment and Plan: * due to ongoing GI losses, acidosis, and possibly total body store depletion * K is normal today on lots of supplements (4) Acute diarrhea: Code(s): R19.7 - Diarrhea, unspecified Status: Acute Assessment and Plan: * as noted by history * Gastroenterology following * follow-up on stool studies * continue supportive therapy * scope shows difuse colitis. * Imodium does not touch it (5) COVID-19 virus infection: Code(s): U07.1 - COVID-19 Status: Acute Assessment and Plan: * no evidence of hypoxia at this time * still on respiratory isolation * follow respiratory status (6) Metastatic melanoma: Code(s): C79.9 - Secondary malignant neoplasm of unspecified site Status: Chronic Assessment and Plan: * known diagnosis * follows with Dr. Hobson (7) Hypertension: Code(s): I10 - Essential (primary) hypertension Status: Chronic Assessment and Plan: * Systolic below 130 Subjective Date/time seen: 10/02/21 06:55 Interval history: Diarrhea is better today. No chest pain or shortness of breath Exam Narrative: General: WD/WN male/female in NAD Heart: normal S1 and S2; no rub Lungs: clear bilaterally Abdomen: soft, nontender, mild distension, positive bowel sounds Extremities: no edema or cyanosis Skin: No rash or subcu nodules Objective Data Vital Signs Vital Signs: Vital Signs - 24 hr 10/01/21 08:00 10/01/21 09:25 10/01/21 16:00 Temperature 36.1 C L Pulse Rate 76 76 Respiratory Rate 18 Blood Pressure 130/77 Pulse Oximetry 99 99 10/01/21 20:00 10/02/21 00:00 10/02/21 04:00 Temperature 36.7 C 36.6 C 36.7 C Pulse Rate 79 78 78 Respiratory Rate 16 18 16 Blood Pressure 140/75 127/77 112/65 Pulse Oximetry 99 100 96 Intake/Output Intake/Output: Intake & Output 09/29/21 09/30/21 10/01/21 10/02/21 23:59 23:59 23:59 23:59 Intake Total 2065 4149 6210 2000 Output Total 1800 022 238 5557 Balance 685 5840 5510 500 Meds/Results Medications: Active Medications Generic Name Dose Route Start Last Admin Trade Name Freq PRN Reason Stop Dose Admin Hydrocodone Bitart/Ac
--- NOTE | 2021-10-02 06:55 | PM.PNNEP ---
Progress Note: A&P Assessment and Plan (1) Acute renal failure: Qualifiers: Acute renal failure type: unspecified Qualified Code(s): N17.9 - Acute kidney failure, unspecified Code(s): N17.9 - Acute kidney failure, unspecified Status: Acute Assessment and Plan: likely due to several issues: prerenal factors (significant dehydration) COVID-19 infection diuretic use prior to admission NSAID use prior to admission reaction to recent chemo/immunotherapy(?) renal ultrasound without obstruction urine electrolytes c/w prerenal azotemia; C4 slightly low. LEONARDO positive 1-80. 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 Some serology is still pending creatinine is down to 1.6 yesterday. Today's labs have not been drawn yet (2) Metabolic acidosis: Code(s): E87.2 - Acidosis Status: Acute Assessment and Plan: Resolved (3) Hypokalemia: Code(s): E87.6 - Hypokalemia Status: Acute Assessment and Plan: due to ongoing GI losses, acidosis, and possibly total body store depletion K is normal today on lots of supplements (4) Acute diarrhea: Code(s): R19.7 - Diarrhea, unspecified Status: Acute Assessment and Plan: as noted by history Gastroenterology following follow-up on stool studies continue supportive therapy scope shows difuse colitis. Imodium does not touch it (5) COVID-19 virus infection: Code(s): U07.1 - COVID-19 Status: Acute Assessment and Plan: no evidence of hypoxia at this time still on respiratory isolation follow respiratory status (6) Metastatic melanoma: Code(s): C79.9 - Secondary malignant neoplasm of unspecified site Status: Chronic Assessment and Plan: known diagnosis follows with Dr. Hobson (7) Hypertension: Code(s): I10 - Essential (primary) hypertension Status: Chronic Assessment and Plan: Systolic below 130 Subjective Date/time seen: 10/02/21 06:55 Interval history: Diarrhea is better today. No chest pain or shortness of breath Exam Narrative: General: WD/WN male/female in NAD Heart: normal S1 and S2; no rub Lungs: clear bilaterally Abdomen: soft, nontender, mild distension, positive bowel sounds Extremities: no edema or cyanosis Skin: No rash or subcu nodules Objective Data Vital Signs Vital Signs: Vital Signs - 24 hr 10/01/21 08:00 10/01/21 09:25 10/01/21 16:00 Temperature 36.1 C L Pulse Rate 76 76 Respiratory Rate 18 Blood Pressure 130/77 Pulse Oximetry 99 99 10/01/21 20:00 10/02/21 00:00 10/02/21 04:00 Temperature 36.7 C 36.6 C 36.7 C Pulse Rate 79 78 78 Respiratory Rate 16 18 16 Blood Pressure 140/75 127/77 112/65 Pulse Oximetry 99 100 96 Intake/Output Intake/Output: Intake & Output 09/29/21 09/30/21 10/01/21 10/02/21 23:59 23:59 23:59 23:59 Intake Total 2485 1246 4310 2000 Output Total 1800 995 728 7481 Balance 684 5898 6043 500 Meds/Results Medications: Active Medications Generic Name Dose Route Start Last Admin Trade Name Freq PRN Reason Stop Dose Admin Hydrocodone Bitart/Acetaminophen 1 tab 09/25/21 16:22 09/26/21 05:19 Hydrocodone/Acetaminophen (*Crx) 7.5-325 Mg Tablet PO 1 tab DAILY PRN Administration Pain Aspirin 325 mg 09/26/21 09:00 10/01/21 09:24 Aspirin 325 Mg Tablet PO 325 mg DAILY BRANDY Administration Carvedilol 12.5 mg 09/25/21 21:00 10/01/21 09:25 Carvedilol 12.5 Mg Tablet PO 12.5 mg Q12HR BRANDY Administration Guaifenesin/Codeine Phosphate 10 ml 09/27/21 14:27 09/28/21 03:36 Guaifenesin/Codeine (*Crx) 200/20 Mg 10 Ml Syrup PO 10 ml Q4H PRN Administration Cough Ceftriaxone Sodium/Dextrose 1 gm in 50 mls @ 100 mls/hr 09/26/21 09:00 10/01/21 09:24 Rocephin 1 Gm/D5w 50 Ml IVPB 100 mls/hr Q24H BRANDY Administration Potassium Chloride/Dextrose/Sod Cl 1,000 mls @ 100 mls/hr 01
[2021-10-02 07:35] LABS: Hematocrit 31.1 % (42.0-52.0); Hemoglobin 10.8 g/dL (14.0-18.0); Mean Corpuscular HGB Conc 34.7 g/dl (32-36); Mean Corpuscular Hemoglobin 31.3 pg (26-34); Mean Corpuscular Volume 90.1 fl (80-100); Mean Platelet Volume 10.1 fl (7.4-10.4); Platelet Count Result 267 k/mm3 (150-375); Red Blood Count 3.45 M/mm3 (4.6-6.20); Red Cell Distribution Width 13.9 % (11.5-14.5); White Blood Count 9.3 K/mm3 (4.5-10.0)
[2021-10-02 07:47] LABS: Alanine Aminotransferase 20 U/L (4-50); Albumin Level 3.3 g/dL (3.5-5.1); Alkaline Phosphatase 97 U/L (38-126); Anion Gap 14 mmol/L (8-16); Aspartate Amino Transferase 26 U/L (17-59); Bilirubin,Total 0.3 mg/dL (0.2-1.3); Blood Urea Nitrogen 20 mg/dL (9-20); Calcium 8.5 mg/dL (8.4-10.2); Carbon Dioxide 15 mmol/L (22-30); Chloride 106 mmol/L (98-107); Estimated CRCL calculation 57 ml/min; Estimated Glomerular Filt Rate > 60; Glucose 105 mg/dL (65-110); Magnesium 1.4 mg/dL (1.6-2.3); Phosphorus 1.7 mg/dL (2.5-4.5); Potassium 4.6 mmol/L (3.4-5.0); Sodium 135 mmol/L (137-145)
[2021-10-02 08:00] VITALS: BP 116/63; PULSE 74; RESP 18; TEMP 36.2; O2SAT 100; O2SAT 97
--- NOTE | 2021-10-02 08:25 | PCNWS ---
Weekly nutritional screen. Patient is tolerating current diet with adequate intake. No weight loss reported. No nutritional needs at this time.
[2021-10-02] MEDS: SODIUM BICARBONATE TAB 650 MG TABLET 1300 MG PO ×2 (09:12→12:50)
[2021-10-02] MEDS: NICOTINE (*PBKC) 21 MG PATCH 1 PATCH TRANSDERM (09:12)
[2021-10-02] MEDS: ASPIRIN 325 MG TABLET PO (09:12)
[2021-10-02 12:00] VITALS: BP 148/76; PULSE 79; RESP 16; TEMP 36.3; O2SAT 100
--- NOTE | 2021-10-02 14:18 | PM.DS ---
DS: Admitting Diagnosis Discharge Date 10/02/2021 Admitting Diagnosis (1) Acute renal failure: (2) Gastroenteritis: (3) Metastatic disease: (4) Hypertension: (5) Tobacco abuse: (6) COVID: DS: Discharge Diagnosis Discharge Diagnosis (1) Acute renal failure: Qualifiers: Acute renal failure type: unspecified Qualified Code(s): N17.9 - Acute kidney failure, unspecified Code(s): N17.9 - Acute kidney failure, unspecified Status: Acute Assessment and Plan: Recovering acute kidney injury. Likely prerenal versus ischemic ATN in the setting of dehydration, COVID-19 infection, per diuretic use, prior NSAID use. There may be an element of reaction to recent chemo/immunotherapy. Renal ultrasound report was reviewed; there is no obstruction. Creatinine is improving from 4-2.6 which is very encouraging. Appreciate Nephrology recommendations. (2) Gastroenteritis: Code(s): K52.9 - Noninfective gastroenteritis and colitis, unspecified Status: Acute Assessment and Plan: Patient reports the persistent diarrhea despite Flagyl. Stool cultures have been obtained. GI has been consulted. Continue with Flagyl. Patient underwent colonoscopy on 09/29. He was diagnosed with melanosis coli, colitis, diverticulosis without perforation, abscess or bleeding. (3) Metastatic disease: Code(s): C79.9 - Secondary malignant neoplasm of unspecified site Status: Acute Assessment and Plan: HIstory of melanoma upper middle back 08/19/2020 excision to upper back oct dx with metastatic melanoma with left gland involvement March, started palliative immunotherapy treatment with ipiliumab and nivoluab 4 cycles started 05/22/2021. left adrenal gland biopsy performed 04/11/2021 ct march 25 showef 3 left lower lobe pulmonary mass and left adrenal mass consistent with metastatic disease Patient aware 1. Interval increase in size of a now 4.1 cm left adrenal mass consistent with biopsy-proven metastatic melanoma. 2. No interval change in several solid pulmonary nodules, the largest measuring 7 mm and 11 mm in the left lower lobe concerning for additional metastatic disease. Dr. Hobson was consulted; follow up his recommendations. (4) Hypertension: Code(s): I10 - Essential (primary) hypertension Status: Chronic Assessment and Plan: Hold Coreg systolic BP less than 130/80. (5) Tobacco abuse: Code(s): Z72.0 - Tobacco use Status: Acute Assessment and Plan: Continue with nicotine patch. (6) COVID: Code(s): U07.1 - COVID-19 Status: Acute Assessment and Plan: Continue to monitor LDH and ferritin. Currently patient is fairly asymptomatic not currently requiring oxygen supplementation. DS: Summary Hospital Course Reason for hospitalization: Acute renal failure. Hospital Course: Please refer to admission H& P. Briefly, this is a 61-year-old male patient who was admitted to [facility] on 09/18/2019 to the patient initially was admitted under observation for hypercalcemia with a calcium of 10.9, acute renal failure and dehydration. The patient stated he has had no prior history of having chronic renal failure. The patient also is having daily diarrhea and had been taking Pepto-Bismol up to 8 times per day. He denied any blood in his stool. The patient has been getting treatment for melanoma. Initially patient's creatinine was 4.96. The patient had been hydrated the next day his creatinine was 6.38. The 7th his creatinine was 7.03 and on the 8th 7.61. On 09/22/2019 to the patient's creatinine appear to be improving at 5.98 and on the left and 4.74. However today patient's creatinine came up to 8.2. According to the records [facility] staff had been communicating with Nephrology for further recommendations. The patient had been on Rocephin for urinary tract infection. He had been on Flagyl for colitis. On 09/23/2019 to his COVID test
[2021-10-02 18:22] LABS: Creatinine, Random Urine 226 mg/dL (20-320); Total Protein/Creatinine Ratio 1323 mg/g creat (22-128)
[2021-10-03 17:49] LABS: Complement Total CH50 >60 U/mL (31-60)
[2021-10-03 20:37] LABS: Albumin 39 %; Creat 24 Hr 0.53 g/24 h (0.50-2.15); Measured Lambda Chains 6.05 mg/dL (<2.00); Pro/Creat Ratio 830 mg/g creat (<=114); Total Kappa Chains 37 mg/24 h
[2021-10-04 11:16] LABS: ANCA Screen Negative (Negative)
== END 2021-10-02 16:35 | disposition home or self-care (01) | DRG 682 ==
LOC: ANHIMU 09-29 08:15 → ANH3MEDSUR 10-02 14:16 → ANHIMU 10-03 10:59
PROVIDERS: Internal Medicine; Internal Medicine Gastroenterology; Internal Medicine Nephrology; Nurse Practitioner; Admitting Provider Internal Medicine; PCP Internal Medicine; Visit Provider Hospitalist
PROC: 0DJD8ZZ Inspection of Lower Intestinal Tract, Via Natural or Artificial Opening Endoscopic (ICD-10-PCS; CPT 45378; principal; 2021-09-29 14:30)
DX: N17.9 Acute kidney failure, unspecified (principal); U07.1 COVID-19; N39.0 Urinary tract infection, site not specified; C79.9 Secondary malignant neoplasm of unspecified site; E87.2 Acidosis; K52.9 Noninfective gastroenteritis and colitis, unspecified; E86.0 Dehydration; E83.52 Hypercalcemia; C43.9 Malignant melanoma of skin, unspecified; M81.0 Age-related osteoporosis without current pathological fracture; F17.210 Nicotine dependence, cigarettes, uncomplicated; F12.90 Cannabis use, unspecified, uncomplicated; Z79.82 Long term (current) use of aspirin; I10 Essential (primary) hypertension; E87.6 Hypokalemia; K63.89 Other specified diseases of intestine; K57.90 Diverticulosis of intestine, part unspecified, without perforation or abscess without bleeding
CPT/HCPCS: 36415; 71045; 76775; 80048; 80053; 80069; 80076; 81001; 82436; 82550; 82570; 82595; 82728; 83520; 83605; 83690; 83735; 83930; 83935; 84100; 84132; 84133; 84155; 84156; 84165; 84166; 84300; 84443; 85025; 85027; 85380; 85652; 85999; 86036; 86038; 86039; 86060; 86140; 86160; 86162; 86215; 86225; 86235; 86334; 86335; 86703; 86705; 86706; 86803; 87015; 87045; 87086; 87269; 87272; 87324; 87340; 87427; 88305; 89055; 99223; A9270; G0432; J0696; J3475; J3480; J7120

== ENCOUNTER 2022-02-11 07:44 | Outpatient (CLI) | payer BC, SELFPAY ==
--- NOTE | ~2022-02-11 | CT_ITS ---
EXAMINATION: CT chest abdomen pelvis wo con DATE: 02/11/2022 08:06 INDICATION: Metastatic melanoma. TECHNIQUE: Computed tomography (CT) of the chest, abdomen, and pelvis was performed without intraveno us contrast. Automated exposure control and iterative reconstruction technique were employed. The dos e-length product was 701.76 mGy-cm. COMPARISON: CT 09/18/2021 FINDINGS: CHEST CT: There is mild emphysema. Calcified left lung nodules and calcified left hilar lymph nodes are consist ent with old granulomatous disease. A 9 mm nodule in left lung lower lobe previously measured 12 mm. A 7 mm nodule in left lung lower lobe previously measured 8 mm. Again seen is a 3 mm nodule in right upper lobe. There is a stable 4 mm groundglass nodule in right upper lobe. No pleural effusion. There is a left subclavian port with tip at superior cavoatrial junction. The heart size is normal. There are coronary artery calcifications. No pericardial effusion. There is mild chronic height loss of mul tiple vertebral bodies. There is moderate thoracic spondylosis. There is an old fracture of right 11t h rib. ABDOMEN/PELVIS CT: Calcifications in the liver and spleen are consistent with old granulomatous disease. The gallbladder , pancreas, and right adrenal gland are normal. There is a 2.9 cm mass in left adrenal gland that pre viously measured 3.9 cm. The kidneys are normal. There are no dilated loops of bowel. There are no pa thologically enlarged lymph nodes. There is no free intraperitoneal fluid. There is severe lumbar spo ndylosis. IMPRESSION: 1. Pulmonary nodules and left adrenal mass with interval improvement, consistent with metastatic dise ase. Reviewed, dictated and finalized at location A. IMPRESSION: 1. Pulmonary nodules and left adrenal mass with interval improvement, consisten t with metastatic disease.
== END 2022-02-11 07:45 | disposition home or self-care (01) ==
LOC: ANHIMG 07:50
PROVIDERS: PCP Internal Medicine; Visit Provider Internal Medicine Hematology & Oncology
DX: C79.9 Secondary malignant neoplasm of unspecified site (principal); R91.8 Other nonspecific abnormal finding of lung field; E27.9 Disorder of adrenal gland, unspecified
CPT/HCPCS: 71250; 74176

== ENCOUNTER 2022-06-03 08:20 | Outpatient (CLI) | payer BC, MEDICAID, SELFPAY ==
--- NOTE | ~2022-06-03 | CT_ITS ---
EXAMINATION: CT chest abdomen pelvis wo con DATE: 06/03/2022 08:51 INDICATION: Melanoma of trunk TECHNIQUE: Computed tomography (CT) of the chest, abdomen, and pelvis was performed without intraveno us contrast. Automated exposure control and iterative reconstruction technique were employed. Exam do se: 624.43 mGy-cm total exam DLP. COMPARISON: 02/11/2022 CT chest abdomen pelvis FINDINGS: CHEST CT: Left lower lobe pulmonary nodule at measured 9 mm on 02/11/2022 currently measures approximately 8.2 mm . Previous nodular density in the left lower lobe reported 7 mm currently measures approximately 5 mm . Again noted is an approximately 3 mm right upper lobe nodular density. Previously reported 4 mm groundglass density in the right upper lobe is less apparent on the current examination. No new pulmonary mass lesion is noted. Old pulmonary granulomatous disease is noted. Left Port-A-Cath catheter, with tip near superior cavoatrial junction. Normal heart size. Coronary ar ander calcification. No thoracic aortic aneurysm or dissection. No pericardial or pleural effusion. No interval enlargement of any hilar or mediastinal lymph nodes. Small sliding hiatal hernia. ABDOMEN/PELVIS CT: Calcified hepatic and splenic granulomas consistent with old granulomatous disease. The liver, contra cted gallbladder, bile ducts and spleen are otherwise unremarkable. There is an approximately 2.5 x 3.7 cm new cystic lesion along the anterior aspect of the pancreatic tail and new approximately 1.7 x 1.8 cm rounded fluid collection at the posteroinferior aspect of the pancreatic tail since 02/11/2022. There is thickening of the left anterior pararenal and lateroconal f ascia. The findings are most suggestive of pancreatitis and pancreatic pseudocyst. There is left adrenal enlargement. The margins are somewhat ill-defined. It measures approximately 2 x 2.6 cm, diminished in size since 02/11/2022 suggesting interval improvement of left adrenal metastasi s. The kidneys are unremarkable. No urinary tract calculus or hydroureteronephrosis. There is nonspecific moderate thickening of the urinary bladder wall, possibly due to prostate enlarg ement. Multiple prostate calcifications. There is extensive calcification of the abdominal aorta and iliac and femoral arteries. No abdominal aortic aneurysm. No intraperitoneal or retroperitoneal or pelvic mass lesion or adenopathy or ascites is noted other t fuentes the previously mentioned left adrenal mass. No suspicious osteolytic or osteoblastic lesions are noted. Prominent degenerative disc disease is no rizwana in particular at L3-4 and L5-S1. IMPRESSION: Stable or mildly diminished size of pulmonary nodules and mildly diminished size of left adrenal gland since 02/11/2022 Left Port-A-Cath catheter Small sliding hiatal hernia Signs of pancreatitis and developing pancreatic pseudocysts in the region of the pancreatic tail Reviewed, dictated and finalized at [facility]. Reviewed, dictated and finalized at location B. IMPRESSION: Stable or mildly diminished size of pulmonary nodules and mildly d iminished size of left adrenal gland since 02/11/2022 Left Port-A-Cath catheter Small sliding hiatal hernia Signs of pancreatitis and developing pancreatic pseudocysts in the region of th e pancreatic tail
== END 2022-06-03 08:21 | disposition home or self-care (01) ==
PROVIDERS: PCP Internal Medicine; Visit Provider Internal Medicine Hematology & Oncology
DX: C43.59 Malignant melanoma of other part of trunk (principal); K44.9 Diaphragmatic hernia without obstruction or gangrene; R91.8 Other nonspecific abnormal finding of lung field
CPT/HCPCS: 71250; 74176

== ENCOUNTER 2022-06-17 12:54 | Outpatient (CLI) | payer BC, MEDICAID, SELFPAY ==
--- NOTE | ~2022-06-17 | CT_ITS ---
EXAMINATION: CTA chest PE protocol DATE: 06/17/2022 14:24 INDICATION: +DDIMER,SOB. History of metastatic melanoma TECHNIQUE: Computed tomography angiography (CTA) of the chest was performed with 100 mL Omnipaque-350 intravenous contrast timed to evaluate the pulmonary arteries. Coronal maximum intensity projection 3D-reconstructions were created by the technologist. The dose-length product (DLP) was 459.54 mGy-cm. Automated exposure control and iterative reconstruction technique were employed. COMPARISON: 06/03/2022, x-ray chest 06/17/2022. FINDINGS: Lung parenchyma and airways: Collapse of the left lower lobe and lingula. Airway fluid in the depende nt left lower lobe bronchi. Patchy central and peripheral islands of groundglass opacity in the right lung. Stable left upper lobe pulmonary nodule. Pleura: Large volume left pleural fluid collection. No pleural mass. Thoracic inlet, axillae and chest wall: Left implanted port terminating at the SVC. Thoracic aorta: Normal. Mediastinum: Normal. Heart and pericardium: Normal. Coronary artery calcifications: Mild. Upper abdomen: No significant finding. Bones: No acute osseous finding. Pulmonary arteries: Study quality: Adequate. No pulmonary emboli detected. IMPRESSION: No CT evidence of acute pulmonary embolus. Groundglass opacities in the right lung likely represent i nfection, including atypical/or viral etiologies. Large left pleural effusion. Collapse of the lingul a and left lower lobe. Minimal airway fluid. Reviewed, dictated and finalized at location K. IMPRESSION: No CT evidence of acute pulmonary embolus. Groundglass opacities in the right l terry likely represent infection, including atypical/or viral etiologies. Large l eft pleural effusion. Collapse of the lingula and left lower lobe. Minimal airw ay fluid.
--- NOTE | ~2022-06-17 | XR_ITS ---
EXAMINATION: XR chest 2V DATE: 06/17/2022 13:26 INDICATION: Left-sided pleuritic chest pain. TECHNIQUE: Frontal and lateral views of the chest were obtained. COMPARISON: Chest single view 09/28/2021, CT 06/03/2022 FINDINGS: There is a large left pleural effusion with rightward shift of the mediastinum. No pneumoth orax. The heart size is obscured. Calcified left hilar lymph nodes are consistent with old granulomat ous disease. There is a left subclavian port with tip in superior vena cava. IMPRESSION: 1. Large left pleural effusion, new from 06/03/22. Reviewed, dictated and finalized at location A.
[2022-06-17 13:16] LABS: Hemoglobin 13.4 g/dL (14.0-18.0); Mean Corpuscular HGB Conc 33.5 g/dL (32.0-36.0); Mean Corpuscular Hemoglobin 30.6 pg (27.0-31.0); Mean Corpuscular Volume 91.3 fL (78.0-102.0); Mean Platelet Volume 9.2 fl (8.7-11.0); Platelet Count Result 313 K/mm3 (150-420); Red Blood Count 4.38 M/mm3 (4.70-6.10); Red Cell Distribution Width 13.7 % (11.6-14.4); White Blood Count 10.3 K/mm3 (4.8-10.8)
[2022-06-17 13:39] LABS: Band Neutrophils Percent 0 % (0-6); Eosinophils Absolute Manual 0.61 K/mm3 (0.02-0.5); Eosinophils Percent Manual 6 % (1-6); Lymphocytes Absolute Manual 1.13 K/mm3 (1.1-4.5); Lymphocytes Percent Manual 11 % (18-44); Monocytes Absolute Manual 1.23 K/mm3 (0.1-0.90); Monocytes Percent Manual 12 % (3-9); Neutrophils Absolute Manual 7.31 K/mm3 (1.3-6.7); Neutrophils Percent Manual 71 % (46-73); Platelet Estimate Adequate (Adequate); Total Cells Counted 100
[2022-06-17 13:42] LABS: Anion Gap 5 mmol/L (8-16); Blood Urea Nitrogen 10 mg/dL (7-18); Carbon Dioxide 30 mmol/L (21-32); Chloride 98 mmol/L (98-108); Estimated Glomerular Filt Rate > 60; Glucose 99 mg/dL (70-99); Osmolality Calculated 275 mOsm/kg (285-295); Potassium 4.3 mmol/L (3.5-5.1); Sodium 133 mmol/L (136-145)
[2022-06-17 13:43] LABS: Alanine Aminotransferase 18 U/L (16-63); Albumin Level 2.7 g/dL (3.4-5.0); Alkaline Phosphatase 112 U/L (46-116); Aspartate Amino Transferase 16 U/L (15-37); Bilirubin,Total 0.3 mg/dL (0.00-1.00); CRP 0.8 mg/dL (0.0-0.9); Calcium 8.7 mg/dL (8.5-10.1); Creatine Kinase 38 U/L (39-308); NT Pro B Type Natriuretic Pept 322 pg/mL (0-125); Total Protein 6.4 g/dL (6.4-8.2); Troponin I 7.8 ng/L (0.00-60.4)
== END 2022-06-17 12:55 | disposition home or self-care (01) ==
LOC: CHSLAB 12:58
PROVIDERS: PCP Internal Medicine; Visit Provider Internal Medicine
DX: R06.00 Dyspnea, unspecified (principal); R07.81 Pleurodynia; C79.9 Secondary malignant neoplasm of unspecified site
CPT/HCPCS: 36415; 71046; 71275; 80053; 82550; 82553; 83880; 84484; 85025; 85380; 86140; Q9967

== ENCOUNTER 2022-07-02 08:26 | Outpatient (CLI) | payer BC, MEDICAID, SELFPAY ==
[2022-07-02] VITALS (7 sets, daily range): BP systolic 141–188; BP diastolic 78–89; PULSE 58–64; RESP 18; TEMP 36.7; O2SAT 94–97; BMI 24.0
--- NOTE | ~2022-07-02 | US_ITS ---
EXAMINATION: US thoracentesis DATE: 07/02/2022 10:36 INDICATION: Left pleural effusion TECHNIQUE: The procedure and its risks and benefits were discussed with the patient. Potential risks discussed included bleeding, infection, and pneumothorax. The patient understood the risks and agreed to proceed. The skin was prepped and draped in sterile fashion. 1% lidocaine was used for local anes thesia. Under ultrasound guidance, a 5 Fr catheter with trochar was advanced into the left pleural ef fusion. Fluid was aspirated. The catheter was removed, and a dressing was applied. There were no imme diate complications. FINDINGS: Ultrasound images demonstrate a large left pleural effusion and the catheter within the fluid. IMPRESSION: 1. Successful ultrasound-guided thoracentesis yielding 1000 mL of light brownish colored fluid. Reviewed, dictated and finalized at location A. IMPRESSION: 1. Successful ultrasound-guided thoracentesis yielding 1000 mL of light browni sh colored fluid.
--- NOTE | ~2022-07-02 | XR_ITS ---
EXAMINATION: [id number] DATE: 07/02/2022 10:15 INDICATION: Status post left thoracentesis TECHNIQUE: frontal and lateral views of the chest were obtained. COMPARISON: Chest CT dated 06/17/2022 FINDINGS: Reason size of a now moderate left pleural effusion. Opacities in the left mid and lower lung zones c onsistent with associated atelectasis although underlying pneumonia or malignancy is not excludable. Right lung remains clear. No pulmonary edema, pneumothorax or right pleural effusion. Heart size is n ormal. Left subclavian central venous port catheter with distal tip at the caudal superior vena cava. IMPRESSION: 1. Decreased now moderate-sized left pleural effusion post thoracentesis. 2. Opacities in the left mid and lower lung zones consistent with atelectasis although underlying pne umonia or malignancy is not excludable. Reviewed, dictated and finalized at location A. IMPRESSION: 1. Decreased now moderate-sized left pleural effusion post thoracentesis. 2. Opacities in the left mid and lower lung zones consistent with atelectasis a lthough underlying pneumonia or malignancy is not excludable.
[2022-07-02 08:49] LABS: Mean Platelet Volume 9.1 fl (7.4-10.4); Platelet Count Result 268 k/mm3 (150-375)
[2022-07-02 09:11] LABS: INR 1.1
--- NOTE | 2022-07-02 10:37 | SUR.PHASEII ---
per dr chan pt can have his nicoret gum and can leave in 2 hrs.
== END 2022-07-02 12:16 | disposition home or self-care (01) ==
PROVIDERS: PCP Internal Medicine; Referring Provider Internal Medicine Hematology & Oncology; Visit Provider Radiology Diagnostic Radiology
DX: J90 Pleural effusion, not elsewhere classified (principal)
CPT/HCPCS: 32555; 36415; 85049; 85610; 88108; 88305

== ENCOUNTER 2022-10-28 07:13 | Outpatient (CLI) | payer OTHER, SELFPAY ==
--- NOTE | ~2022-10-28 | CT_ITS ---
EXAMINATION: CT chest abdomen pelvis w con DATE: 10/28/2022 07:38 INDICATION: Metastatic melanoma. TECHNIQUE: Computed tomography (CT) of the chest, abdomen, and pelvis was performed with 100 mL Omnip aque 350 intravenous contrast. Automated exposure control and iterative reconstruction technique were employed. The dose-length product was 484.35 mGy-cm. COMPARISON: Chest CT 06/17/2022, CT chest, abdomen, and pelvis 06/03/2022, 08/06/21 FINDINGS: CHEST CT: There is mild emphysema. There are 8 mm and 4 mm nodules in left lower lobe, stable from 06/03/22 and improved from 08/06/21. Calcified left lung nodules and calcified left hilar lymph nodes are consiste nt with old granulomatous disease. There is a small left pleural effusion. The heart size is normal. There are coronary artery calcifications. No pericardial effusion. There is a left subclavian port wi th tip in proximal right atrium. There is severe thoracic spondylosis. There is mild chronic anterior wedging of multiple vertebral bodies. ABDOMEN/PELVIS CT: There is a 7 mm mass in right hepatic lobe. There is a 5 mm cyst in right hepatic lobe. Calcification s in the liver and spleen are consistent with old granulomatous disease. There is a 13 mm low-attenua tion mass in right hepatic lobe, stable from 08/06/21. The gallbladder and pancreas are normal. There is thickening of left adrenal gland. There is a 2.2 cm mass in left adrenal gland measuring soft tis thierno attenuation, stable from 06/03/22 and improved from 3.6 cm on 08/06/21, consistent with metastatic disease proven by biopsy on 04/11/21. There is cortical thinning of the kidneys. There are cysts in t he kidneys measuring up to 9 mm on the left. The prostate is mildly enlarged. There is diverticulosis of the colon without evidence of diverticulitis. There are no dilated loops of bowel. The appendix i s not visualized. There is a 17 x 11 mm left para-aortic lymph node. There is no free intraperitoneal fluid. There is severe lumbar spondylosis. IMPRESSION: 1. Lung nodules and left adrenal mass, consistent with metastatic disease, stable from 06/03/2022. 2. Small liver masses and mildly enlarged left para-aortic lymph node, which are indeterminate for me tastatic disease. 3. Small left pleural effusion. Reviewed, dictated and finalized at location A. HER PRODUCTION WORKER IMPRESSION: 1. Lung nodules and left adrenal mass, consistent with metastatic disease, stab le from 06/03/2022. 2. Small liver masses and mildly enlarged left para-aortic lymph node, which ar e indeterminate for metastatic disease. 3. Small left pleural effusion.
== END 2022-10-28 07:14 | disposition home or self-care (01) ==
PROVIDERS: PCP Internal Medicine; Visit Provider Internal Medicine Hematology & Oncology
DX: C79.9 Secondary malignant neoplasm of unspecified site (principal); R91.8 Other nonspecific abnormal finding of lung field; E27.9 Disorder of adrenal gland, unspecified; R16.0 Hepatomegaly, not elsewhere classified; J90 Pleural effusion, not elsewhere classified
CPT/HCPCS: 71260; 74177; Q9967

== ENCOUNTER 2023-01-19 08:26 | Outpatient (CLI) | payer OTHER, SELFPAY ==
--- NOTE | ~2023-01-19 | CT_ITS ---
Clinical Indication: Melanoma CT Scan of the Chest, Abdomen, and Pelvis with Contrast: Technique: Contiguous sections were acquired throughout the chest, abdomen, and pelvis after intraven ous administration of 100 cc of Omnipaque 350. Dose reduction technique was used on this scan by uti sarahing automated exposure control and iterative reconstruction technique. The dose-length product (DL P) was 651.87 mGy-cm. COMPARISON: 10/28/2022 Findings: Left-sided Mediport noted. Shotty mediastinal lymph nodes are stable from prior exam. The mediastinal vascular structures appear normal. No pericardial effusion. Small left pleural effusion present. No right pleural effusion. There is a stable 7 mm nodule at the left lung base (axial image 94). There is probable adjacent roun ded left lower lobe atelectasis adjacent to the effusion. Right lung is clear. The liver, spleen, pancreas, gallbladder, right adrenal gland, and kidneys are within normal limits. 2 cm left adrenal nodule is similar to prior exam. There are atherosclerotic calcifications of the ao rta. Shotty periaortic lymph nodes are similar to prior exam. There is bowel wall thickening involving the splenic flexure of the colon/proximal descending colon, mild adjacent inflammatory stranding, and shotty pericolonic/central mesenteric lymph nodes in the le ft upper quadrant lesion. No bowel obstruction. Urinary bladder is unremarkable. Prostate gland and seminal vesicles are unremarkable. No ascites. Impression: Wall thickening of the splenic flexure the colon with nearby shotty lymph nodes and minimal inflammat ory stranding. Findings could reflect diverticulitis or infectious/inflammatory colitis, versus any p ossibility of neoplastic/metastatic disease of the colon. Correlate with patient's symptomatology. Co nsider colonoscopy as indicated. Stable 2 cm left adrenal metastasis. Stable 7 mm left lower lobe pulmonary nodule. Small left pleural effusion with probable adjacent rounded atelectasis. Additional shotty lymph nodes in the mediastinum, para-aortic region, and central mesentery, similar to prior exam. These remain nonspecific. Reviewed, dictated and finalized at location M. Impression: Wall thickening of the splenic flexure the colon with nearby shotty lymph nodes and minimal inflammatory stranding. Findings could reflect diverticulitis or i nfectious/inflammatory colitis, versus any possibility of neoplastic/metastatic disease of the colon. Correlate with patient's symptomatology. Consider colono scopy as indicated. Stable 2 cm left adrenal metastasis. Stable 7 mm left lower lobe pulmonary nodule. Small left pleural effusion with probable adjacent rounded atelectasis. Additional shotty lymph nodes in the mediastinum, para-aortic region, and centr al mesentery, similar to prior exam. These remain nonspecific.
== END 2023-01-19 08:27 | disposition home or self-care (01) ==
PROVIDERS: PCP Internal Medicine; Visit Provider Internal Medicine Hematology & Oncology
DX: C43.59 Malignant melanoma of other part of trunk (principal); C79.72 Secondary malignant neoplasm of left adrenal gland; R91.1 Solitary pulmonary nodule; J90 Pleural effusion, not elsewhere classified; K63.9 Disease of intestine, unspecified
CPT/HCPCS: 71260; 74177; Q9967

== ENCOUNTER 2023-03-03 09:23 | Outpatient (CLI) | payer OTHER, SELFPAY ==
--- NOTE | ~2023-03-03 | XR_ITS ---
EXAMINATION: XR hand RT min 3V, XR wrist RT min 3V DATE: 03/03/2023 09:43 INDICATION: Lateral sided right wrist and thumb pain TECHNIQUE: 1. Posteroanterior, ulnar deviation, oblique, and lateral views of the right wrist were obtained. 2. Dorsal palmar, oblique and lateral views of the right hand were obtained. COMPARISON: None. FINDINGS: Advanced osteoarthritis at the second distal interphalangeal joint with secondary 3 mm ulnar subluxat ion. Moderate osteoarthritis at the first metatarsophalangeal joint also with likely secondary mild p almar subluxation and ulnar deviation. Alignment is otherwise normal. No fractures. Additional polyar ticular osteoarthritis, moderate at the third metacarpophalangeal joint and mild at the triscaphe, fi rst carpometacarpal and majority the remaining metacarpophalangeal and interphalangeal joints. IMPRESSION: 1. 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 Reviewed, dictated and finalized at location A. IMPRESSION: 1. 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
== END 2023-03-03 09:24 | disposition home or self-care (01) ==
LOC: CHSIMG 09:26
PROVIDERS: PCP Internal Medicine; Visit Provider Internal Medicine
DX: M25.531 Pain in right wrist (principal); M19.011 Primary osteoarthritis, right shoulder
CPT/HCPCS: 73110; 73130

== ENCOUNTER 2023-04-30 13:26 | Outpatient (CLI) | payer OTHER, SELFPAY ==
--- NOTE | ~2023-04-30 | CT_ITS ---
EXAMINATION: CT chest abdomen pelvis w con DATE: 04/30/2023 13:51 INDICATION: Melanoma of the trunk TECHNIQUE: Transaxial computed tomographic images of the chest, abdomen, and pelvis were obtained aft er the administration of 100 cc of Omnipaque 350 intravenous contrast. The dose-length product (DLP) was 681.57 mGy-cm. Automated exposure control and iterative reconstruction technique were employed. COMPARISON: 01/20/2020 FINDINGS: CHEST CT: There are stable nodules of the left lower lobe measuring 8 mm and 5 mm. There is a small left pleura l effusion with adjacent rounded atelectasis. Calcified pulmonary nodules and calcified left hilar ly mph nodes are consistent with old granulomatous disease. A left subclavian Port-A-Cath ends with its tip in the distal superior vena cava. No pathologically enlarged thoracic lymph nodes are identified. The heart size is normal. There is moderate thoracic spondylosis. ABDOMEN/PELVIS CT: There is a subtle, stable 7 mm mass of the right hepatic lobe. Punctate calcifications in an otherwis e normal spleen likely represent healed granulomatous disease. The pancreas, gallbladder, and right a drenal gland are normal. There is a stable 2.2 cm mass of left adrenal gland, consistent with known m etastatic disease. Cysts of the kidneys measure up to 10 mm on the left. There is decrease in inflamm atory change at the splenic flexure of the colon. There appears to be a tiny fluid collection near th e tail of the pancreas/splenic flexure with interval decrease measuring 10 mm in maximum dimension. T here is an increase in number of normal-sized retroperitoneal lymph nodes. No free intraperitoneal ga s or evidence of bowel obstruction. There is calcified atherosclerosis of the aorta and many of the o ther arteries. IMPRESSION: 1. Stable left lung nodules and left adrenal mass, consistent with metastatic disease. 2. Small, stable liver mass, indeterminate 3. Decreased inflammatory change at the splenic flexure of the colon and decrease in small adjacent f luid collection measuring 10 mm in maximum dimension. Reviewed, dictated and finalized at location B. IMPRESSION: 1. Stable left lung nodules and left adrenal mass, consistent with metastatic d isease. 2. Small, stable liver mass, indeterminate 3. Decreased inflammatory change at the splenic flexure of the colon and decrea se in small adjacent fluid collection measuring 10 mm in maximum dimension.
== END 2023-04-30 13:27 | disposition home or self-care (01) ==
PROVIDERS: PCP Internal Medicine; Visit Provider Internal Medicine Hematology & Oncology
DX: C43.59 Malignant melanoma of other part of trunk (principal); R91.8 Other nonspecific abnormal finding of lung field
CPT/HCPCS: 71260; 74177; Q9967

== ENCOUNTER 2023-06-29 08:21 | Outpatient (CLI) | payer OTHER, SELFPAY ==
--- NOTE | ~2023-06-29 | CT_ITS ---
Clinical Indication: Melanoma CT Scan of the Chest, Abdomen, and Pelvis with Contrast: Technique: Contiguous sections were acquired throughout the chest, abdomen, and pelvis after intraven ous administration of 100 cc of Omnipaque 350. Dose reduction technique was used on this scan by uti lizing automated exposure control and iterative reconstruction technique. The dose-length product (DL P) was 884.46 mGy-cm. COMPARISON: 04/30/2023 Findings: There is no evidence of any significant mediastinal, hilar or axillary lymphadenopathy. The mediastin al soft tissues and vascular structures appear normal. No pericardial effusion. Small left pleural effusion is present. No right pleural effusion. There is mild left basilar atelectatic change. Stable 2 mm right upper lobe pulmonary nodule. Stable subcentimeter nodule along the left oblique fissure. The liver, spleen, pancreas, gallbladder, right adrenal gland, and kidneys are within normal limits. Stable 2 cm left adrenal nodule present. There are atherosclerotic calcifications of the aorta. No lymphadenopathy. No bowel obstruction or bowel wall thickening. There is no evidence to suggest acute appendicitis. Urinary bladder is unremarkable. No pelvic mass evident. No ascites. Impression: Stable 2 cm left adrenal nodule, which could represent metastatic lesion. Small left pleural effusion with left basilar atelectasis. Previously noted left basilar pulmonary no dules are not clearly seen on the current exam, either improved or possibly obscured by the atelectas is. Reviewed, dictated and finalized at [facility]. Impression: Stable 2 cm left adrenal nodule, which could represent metastatic lesion. Small left pleural effusion with left basilar atelectasis. Previously noted lef t basilar pulmonary nodules are not clearly seen on the current exam, either im proved or possibly obscured by the atelectasis.
== END 2023-06-29 08:22 | disposition home or self-care (01) ==
LOC: ANHIMG 08:25
PROVIDERS: PCP Internal Medicine; Visit Provider Internal Medicine Hematology & Oncology
DX: C43.59 Malignant melanoma of other part of trunk (principal); J90 Pleural effusion, not elsewhere classified; J98.11 Atelectasis
CPT/HCPCS: 71260; 74177; Q9967

== ENCOUNTER 2023-11-02 09:54 | Outpatient (CLI) | payer OTHER, SELFPAY ==
--- NOTE | ~2023-11-02 | CT_ITS ---
EXAMINATION: CT chest abdomen pelvis w con DATE: 11/02/2023 10:23 INDICATION: Metastatic melanoma TECHNIQUE: Computed tomography (CT) of the chest, abdomen, and pelvis was performed with 100 mL Omnip aque-350 intravenous contrast. Automated exposure control and iterative reconstruction technique were employed. The dose-length product was 1087.63 mGy-cm. COMPARISON: 06/29/2023, 04/30/2023 and 09/18/2021 FINDINGS: CHEST CT: Calcified left lower lobe nodule and calcified left hilar lymph nodes consistent with old granulomato us disease. There are few additional scattered <4 mm pulmonary nodules in the bilateral lungs which a re without interval change since 03/04 consistent with additional old granulomatous disease. Unchang ed small left pleural effusion, likely exudative with persistent peripheral smooth mildly thickened p leura. Adjacent round atelectasis with volume loss and cerebellar architecture distortion of the bron chovascular structures. A few additional thin linear bands of discoid atelectasis in the basilar left lower lobe and lingula no new or enlarging pulmonary nodules, pneumonia, pulmonary edema or right pl eural effusion. Heart size is normal. Atherosclerotic coronary artery calcifications. No interval guerda nge in a few scattered mildly prominent but still normal-sized mediastinal and right hilar lymph node s. Mildly ectatic ascending thoracic aorta measuring up to 4.1 cm in maximal diameter. No dissection. Moderate thoracic spondylosis with chronic mild anterior wedging of a few lower thoracic vertebral b odies. Left subclavian central venous port catheter with distal tip at the caudal superior vena cava. ABDOMEN/PELVIS CT: A few splenic and single hepatic calcification consistent with old granulomatous disease. Gallbladder , right adrenal gland are normal. No recent interval change in a 2.0 x 1.5 cm left adrenal mass which is slightly hypoenhancing relative to the adrenal consistent with treated metastatic disease. There is decrease in the degree of colonic wall thickening most prominent at the splenic flexure of the col on and extending distally to the distal sigmoid colon and rectum. There is some persistent stranding in the fat around a segment of wall thickening as well as around the tail of the otherwise normal-coleman earing pancreas. No bowel obstruction. A few small bilateral low-attenuation renal cysts the largest on the left measuring 1.2 cm. Bladder is normal. Prostatomegaly. No free intraperitoneal gas or fluid . No interval change in multiple mildly prominent but still normal-sized abdominal lymph nodes. No pa thologically enlarged lymphadenopathy. There is calcified atherosclerosis of the aorta and many of th e other arteries. This appears potentially minimally significant at the origin of the left renal shelley ry. Small fat-containing umbilical hernia. Mild lumbar dextro levoscoliosis with severe spondylosis. IMPRESSION: 1. Unchanged 2 cm left adrenal mass consistent with treated metastatic disease. No lesion suspicious for new or progressive metastatic disease. 2. Unchanged small likely exudative left pleural effusion with adjacent mild smooth pleural thickenin g and round atelectasis in the posterior left lower lobe. 3. Decrease in wall thickening of the distal colon beginning at the splenic flexure consistent with i mproving colitis which could be infectious or inflammatory in etiology including response to prior tr eatment for melanoma. Reviewed, dictated and finalized at location A. TIONAL SUPPORT ANALYST IMPRESSION: 1. Unchanged 2 cm left adrenal mass consistent with treated metastatic disease. No lesion suspicious for new or progressive metastatic disease. 2. Unchanged small likely exudative left pleural effusion with adjacent mild sm ooth pleural thickening and round atelectasis in the posterior
== END 2023-11-02 09:55 | disposition home or self-care (01) ==
PROVIDERS: PCP Internal Medicine; Visit Provider Internal Medicine Hematology & Oncology
DX: C43.9 Malignant melanoma of skin, unspecified (principal); E27.8 Other specified disorders of adrenal gland; J90 Pleural effusion, not elsewhere classified
CPT/HCPCS: 71260; 74177; Q9967

== ENCOUNTER 2024-03-07 08:28 | Outpatient (CLI) | payer OTHER, SELFPAY ==
--- NOTE | ~2024-03-07 | CT_ITS ---
EXAMINATION: CT chest abdomen pelvis w con DATE: 03/07/2024 09:03 INDICATION: Melanoma of trunk. TECHNIQUE: Computed tomography (CT) of the chest, abdomen, and pelvis was performed with 100 mL Omnip aque 350 intravenous contrast. Automated exposure control and iterative reconstruction technique were employed. The dose-length product was 926.62 mGy-cm. COMPARISON: CT 11/02/2023 FINDINGS: CHEST CT: There is mild emphysema. A calcified left lung nodule and calcified left hilar lymph nodes are consis tent with old granulomatous disease. There is peripheral rounded atelectasis in left lower lobe. Ther e is a small left pleural effusion with pleural thickening. The heart size is normal. There are coron mari artery calcifications. No pericardial effusion. There is a left subclavian port with tip at super ior cavoatrial junction. There is mild chronic anterior wedging of multiple thoracic vertebral bodies . There is mild thoracic spondylosis. ABDOMEN/PELVIS CT: The liver and gallbladder are normal. Calcifications in the spleen are consistent with old granulomat ous disease. The pancreas and right adrenal gland are normal. There is a 2.1 cm mass in left adrenal gland. There are cysts in the kidneys measuring up to 13 mm in the left. There is calcified atheroscl erosis of the aorta and many of the other arteries. The prostate is mildly enlarged. There are no dil ated loops of bowel. The appendix is not visualized. There are no pathologically enlarged lymph nodes . There is no free intraperitoneal fluid. There is severe lumbar spondylosis. IMPRESSION: 1. Stable 2.1 cm mass in left adrenal gland, consistent with biopsy-proven metastatic disease. 2. Small left pleural effusion with interval improvement. Chronic pleural thickening suggests an exud ate. Reviewed, dictated and finalized at location A. IMPRESSION: 1. Stable 2.1 cm mass in left adrenal gland, consistent with biopsy-proven meta static disease. 2. Small left pleural effusion with interval improvement. Chronic pleural thick ening suggests an exudate.
== END 2024-03-07 08:29 | disposition home or self-care (01) ==
PROVIDERS: PCP Internal Medicine; Visit Provider Internal Medicine Hematology & Oncology
DX: C43.59 Malignant melanoma of other part of trunk (principal); E27.8 Other specified disorders of adrenal gland; J90 Pleural effusion, not elsewhere classified
CPT/HCPCS: 71260; 74177; Q9967

== ENCOUNTER 2024-05-30 08:26 | Outpatient (CLI) | payer MEDICARE, MEDICAID, SELFPAY ==
--- NOTE | ~2024-05-30 | CT_ITS ---
EXAMINATION: CT chest abdomen pelvis w con DATE: 05/30/2024 09:07 INDICATION: Melanoma of trunk. TECHNIQUE: Computed tomography (CT) of the chest, abdomen, and pelvis was performed with 100 mL Omnip aque 350 intravenous contrast. Automated exposure control and iterative reconstruction technique were employed. The dose-length product was 1120.77 mGy-cm. COMPARISON: CT 03/07/2024 FINDINGS: CHEST CT: There is mild emphysema. There is a trace left pleural effusion. There is chronic left-sided pleural thickening. There is rounded atelectasis in left lower lobe abutting the pleura. Calcified left lung nodules and calcified left hilar lymph nodes are consistent with old granulomatous disease. The heart size is normal. There are coronary artery calcifications. No pericardial effusion. There is a left s ubclavian port with tip at superior cavoatrial junction. There is mild chronic anterior wedging of mu ltiple cervical and thoracic vertebral bodies. There is severe cervical spondylosis and moderate thor acic spondylosis. ABDOMEN/PELVIS CT: Calcifications in the liver and spleen are consistent with old granulomatous disease. The gallbladder is normal. There is chronic fat stranding around the tail of the pancreas. Right adrenal gland is no rmal. There is a 2.2 cm mass in left adrenal gland. There is cortical thinning of the kidneys. There are cysts in the kidneys measuring up to 13 mm on the left. There is calcified atherosclerosis of the aorta and many of the other arteries. The prostate is mildly enlarged. There is diverticulosis of th e colon without evidence of diverticulitis. There are no dilated loops of bowel. The appendix is not visualized. There are no pathologically enlarged lymph nodes. There is no free intraperitoneal fluid. There is severe lumbar spondylosis. Thoracolumbar dextroscoliosis is noted. IMPRESSION: 1. Stable 2.2 cm mass in left adrenal gland, consistent with biopsy-proven metastatic disease. Reviewed, dictated and finalized at location A. IMPRESSION: 1. Stable 2.2 cm mass in left adrenal gland, consistent with biopsy-proven meta static disease.
== END 2024-05-30 08:27 | disposition home or self-care (01) ==
LOC: ANHIMG 08:29
PROVIDERS: PCP Internal Medicine; Visit Provider Internal Medicine Hematology & Oncology
DX: E27.9 Disorder of adrenal gland, unspecified (principal); C43.59 Malignant melanoma of other part of trunk
CPT/HCPCS: 71260; 74177; Q9967

== ENCOUNTER 2024-09-19 08:45 | Outpatient (CLI) | payer MEDICARE, MEDICAID, SELFPAY ==
--- NOTE | ~2024-09-19 | CT_ITS ---
EXAMINATION: CT chest abdomen pelvis w con DATE: 09/19/2024 09:14 INDICATION: Metastatic melanoma. TECHNIQUE: Computed tomography (CT) of the chest, abdomen, and pelvis was performed with 100 mL Omnip aque 350 intravenous contrast. Automated exposure control and iterative reconstruction technique were employed. The dose-length product was 909.32 mGy-cm. COMPARISON: CT chest, abdomen, and pelvis 05/30/2024 FINDINGS: CHEST CT: There is left-sided pleural thickening with trace pleural effusion. There are airspace opacities in l eft lower lobe adjacent to the pleura with swirling of the lung parenchyma, consistent with rounded a telectasis. A calcified left lung nodule and calcified left hilar lymph nodes are consistent with old granulomatous disease. The heart size is normal. No pericardial effusion. There are coronary artery calcifications. There is a left subclavian port with tip at superior cavoatrial junction. There is mi ld chronic height loss of multiple vertebral bodies. There is severe cervical spondylosis and moderat e thoracic spondylosis. ABDOMEN/PELVIS CT: Calcifications in the liver and spleen are consistent with old granulomatous disease. Again seen is thickening of left pararenal fascia, which abuts the pancreatic tail. The right adrenal gland is normal. There is a 2.0 cm mass in left adrenal gland with calcifications. There are cysts i n the kidneys measuring up to 1.1 cm on the left. There is calcified atherosclerosis of the aorta and many of the other arteries. There is diverticulosis of the colon without evidence of diverticulitis. The appendix is not visualized. There are no pathologically enlarged lymph nodes. There is no free i ntraperitoneal fluid. There is severe lumbar spondylosis. Thoracolumbar dextroscoliosis is noted. IMPRESSION: 1. Stable 2.0 cm mass in left adrenal gland, consistent with biopsy-proven metastatic disease. Reviewed, dictated and finalized at location A. OGRAPH II ENGRAVER IMPRESSION: 1. Stable 2.0 cm mass in left adrenal gland, consistent with biopsy-proven meta static disease.
== END 2024-09-19 08:46 | disposition home or self-care (01) ==
LOC: ANHIMG 08:50
PROVIDERS: PCP Internal Medicine; Visit Provider Internal Medicine Hematology & Oncology
DX: C79.72 Secondary malignant neoplasm of left adrenal gland (principal)
CPT/HCPCS: 71260; 74177; Q9967

== ENCOUNTER 2025-01-10 08:25 | Outpatient (CLI) | payer MEDICARE, MEDICAID, SELFPAY ==
--- NOTE | ~2025-01-10 | CT_ITS ---
Clinical Indication: Melanoma CT Scan of the Chest, Abdomen, and Pelvis with Contrast: Technique: Contiguous sections were acquired throughout the chest, abdomen, and pelvis after intraven ous administration of 100 cc of Omnipaque 350. Dose reduction technique was used on this scan by luis smithing automated exposure control and iterative reconstruction technique. The dose-length product (DL P) was 827.75 mGy-cm. Comparison: 09/19/2024 Findings: There is no evidence of any significant mediastinal, hilar or axillary lymphadenopathy. The mediastin al soft tissues vascular structures appear normal. No pericardial effusion. Probable minimal left basilar pleural fluid or pleural thickening with associated probable rounded at electasis at the left lung base, similar to prior exam. Right lung is clear. No right pleural effusio n. The liver, spleen, pancreas, gallbladder, right adrenal gland, and kidneys are within normal limits. Stable heterogeneous, lobulated 2.3 cm left adrenal nodule. There are atherosclerotic calcifications of the aorta. There are numerous small, shotty peripancreatic and central mesenteric lymph nodes or masses.. No bowel obstruction or bowel wall thickening. There is no evidence to suggest acute appendicitis. Urinary bladder is unremarkable. No pelvic mass seen. No ascites. Impression: Stable 2.3 cm lobulated, heterogeneous left renal nodule, consistent with biopsy-proven metastatic di sease. Numerous small shotty peripancreatic and central mesenteric lymph nodes are unchanged, nonspecific. Stable minimal left pleural fluid or pleural thickening with left basilar rounded atelectasis. Reviewed, dictated and finalized at [facility]. Impression: Stable 2.3 cm lobulated, heterogeneous left renal nodule, consistent with biops y-proven metastatic disease. Numerous small shotty peripancreatic and central mesenteric lymph nodes are unc hanged, nonspecific. Stable minimal left pleural fluid or pleural thickening with left basilar round ed atelectasis.
--- OUTSIDE RECORDS SUMMARY | 2025-01-10 08:39 | XMS_ITS | Clinical Summary ---
Author Organization [facility] Aec Ayaladavies campustiff Address [address] [address] Care Team Providers Care Hack Saw Operator Name Role Phone Gadiel Brown MD Primary Care Provider [phone] Allergies No known active allergies Medications carvediloL (COREG) 12.5 mg tablet 0 Active HYDROcodone-ac etaminophen (NORCO) 7.5-325 mg Tablet 1 Active lidocaine-pril ocaine (EMLA) 2.5-2.5 % CreamIndicatio ns:Metastatic melanoma (CMS/HCC) Apply to affected area see administration instructions. Apply to port site 30 minutes prior to access 30 Gram 3 1 Active aspirin (OMAR) 325 mg tablet Take 325 mg by mouth daily. Active multivitamin (DAILY-WILMA) tablet Take 1 Tablet by mouth daily. Active losartan (COZAAR) 50 mg tablet 3 Active felodipine (PLENDIL) 5 mg Extended Release 24 hour tablet 3 Active prochlorperazi ne maleate (COMPAZINE) 10 mg tabletIndicati ons:Metastatic melanoma (CMS/HCC) TAKE ONE TABLET BY MOUTH EVERY SIX HOURS NEEDED FOR NAUSEA/EMESIS. 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/HCC) 12/04/2024 Orders Only [facility] Oncology and Hematology - [place] [address] Yousuf Hobson MD Melanoma of trunk ([facility]/HCC) 11/29/2024 External Device Data STL ABSTRACTION Provider, Abstract 11/23/2024 Orders Only [facility] Oncology and Hematology - [place] [address] [place] [id number] Yousuf Hobson MD 11/21/2024 9:00 AM CDT Office Visit [facility] Oncology and Hematology - [place] [address] [place] [id number] Yousuf Hobson MD Melanoma of trunk ([facility]/HCC) (Primary Dx) 11/21/2024 Orders Only [facility] Oncology and Hematology - [place] [address] [place] [id number] Yousuf Hobson MD Need for hepatitis B screening test (Primary Dx) 11/20/2024 Orders Only [facility] Oncology and Hematology - [place] [address] [place] [id number] Yousuf Hobson MD Melanoma of trunk ([facility]/HCC) 11/18/2024 External Device Data STL ABSTRACTION Provider, Abstract 11/17/2024 External Device Data STL ABSTRACTION Provider, Abstract 11/15/2024 External Device Data STL ABSTRACTION Provider, Abstract 11/06/2024 Orders Only [facility] Oncology and Hematology - [place] [address] [place] [address] Yousuf Hobson MD Melanoma of trunk ([facility]/HCC) 11/01/2024 External Device Data STL ABSTRACTION Provider, Abstract 10/31/2024 External Device Data STL ABSTRACTION Provider, Abstract 10/23/2024 Orders Only [facility] Oncology and Hematology [place] [address] [facility] [address] [place] [address] Yousuf Hobson MD Melanoma of trunk (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 Gender Identity Not on file Sexual Orientation Not on file Last Filed Vital Signs Vital Sign Reading Time Taken Comments Blood Pressure 124/71 11/21/2024 9:16 AM CDT Pulse 62 11/21/2024 9:16 AM CDT Temperature 35.9 C (96.7 F) 11/21/2024 9:16 AM CDT Respiratory Rate 15 11/21/2024 9:16 AM CDT Oxygen Saturation 95% 11/21/2024 9:16 AM CDT Inhaled Oxygen Concentration - - Weight 87.6 kg (193 lb 3.2 oz) 11/21/2024 9:16 A M CDT Height 172.7 cm (5' 8 ) 06/16/2022 8:45 AM CDT Body Mass Index 29.38 06/16/2022 8:45 AM CDT Plan of Treatment Upcoming Encounters Date Type Department Care Team (Late st Contact Info) Description 01/16/2025 9:00 AM CDT Office Visit [facility] Oncology and Hematology [place] [address] [place] [address] Yousuf Hobson MD [address] [facility] [address] [place] [address] Health Maintenance Due Date Last Done Comments Pre-Diabetes and Diabetes Screening 1962 DTAP/TDAP/TD VACCINES (1 - Tdap) 1981 COLORECTAL SCREENING 2007 Colorectal Cancer Screening 2007 FIT-DNA Q 3 years 2007 FIT/FOBT Q 1 year 2007 Flex Sig/CT Colonography Q 5 years 2007 ZOSTER VACCINE (1 of 2) 2012 INFLUENZA VACCINE (#1) 2024 RSV VACCINE (60+ or ) (1 - 1-dose 75+ series) 2037 Procedures Procedure Name Priority Date/Time Associated Diagnosis Comments COMPREHENSIVE METABOLIC PANEL Routine 12/19/2024 4:21 PM CDT BASIC METABOLIC PANEL Routine 12/19/2024 4:20 PM CDT CBC MIXED CELL DIFFERENTIAL Routine 12/19/2024 4:04 PM CDT QUANTIFERON TB CONFIRMATION Routine 11/21/2024 4:26 PM CDT BASIC METABOLIC PANEL Routine 11/21/2024 2:45 PM CDT from Last 3 Months Results * COMPREHENSIVE METABOLIC PANEL (12/19/2024 4:21 PM CDT) Blood us Yousuf Hobson MD CHEMISTRY ORDERABLES Final Resu lt * BASIC METABOLIC PANEL (12/19/2024 4:20 PM CDT) Only the most recent of2 resultswithin the time period is included. Blood us Yousuf Hobson MD CHEMISTRY ORDERABLES Final Resu lt * CBC MIXED CELL DIFFERENTIAL (12/19/2024 4:04 PM CDT) Blood us Yousuf Hobson MD HEMATOLOGY ORDERABLES Final Res ult * QUANTIFERON TB CONFIRMATION (11/21/2024 4:26 PM CDT) Blood Yousuf Hobson MD CHEMISTRY ORDERABLES Final Resu lt from Last 3 Months Insurance MEDICAID [place] MEDICARE PART A AND B Care Teams Hack Saw Operator Relationship Specialty Start Date End Date Gadiel Brown MD [address] [place] [address] PCP - General Internal Medicine 08/22/20
== END 2025-01-10 08:26 | disposition home or self-care (01) ==
PROVIDERS: PCP Internal Medicine; Visit Provider Internal Medicine Hematology & Oncology
DX: N28.89 Other specified disorders of kidney and ureter (principal); R59.0 Localized enlarged lymph nodes; C43.59 Malignant melanoma of other part of trunk
CPT/HCPCS: 71260; 74177; Q9967

== ENCOUNTER 2025-04-03 10:03 | Outpatient (CLI) | payer MEDICARE, MEDICAID, SELFPAY ==
--- NOTE | ~2025-04-03 | CT_ITS ---
EXAMINATION: CT chest abdomen pelvis w con DATE: 04/03/2025 10:45 INDICATION: Melanoma of the trunk TECHNIQUE: Computed tomography (CT) of the chest, abdomen, and pelvis was performed with 100 mL Omnip aque-350 intravenous contrast. Automated exposure control and iterative reconstruction technique were employed. The dose-length product was 1109.09 mGy-cm. COMPARISON: 01/10/2025 FINDINGS: CHEST CT: Unchanged chronic very small left pleural effusion at the posterior sulcus with associated pleural th ickening and stable appearance of the region of peripheral round atelectasis in the dependent left lo wer lobe with some associated volume loss and localized architectural distortion. A few calcified lef t lower lobe nodules along with calcified left hilar lymph nodes consistent with old granulomatous di sease. Right lung is clear. No pulmonary edema, pneumonia, pneumothorax or right-sided pleural effusi on. Heart size is normal. Atherosclerotic coronary artery calcific location. No pericardial effusion. Thoracic aorta is normal in caliber with no dissection. Left subclavian central venous port catheter with distal tip at the superior cavoatrial junction. Moderate to severe thoracic spondylosis with ch ronic mild anterior wedging of a few lower thoracic vertebral bodies. ABDOMEN/PELVIS CT: Diffuse hepatic steatosis with focal sparing along the gallbladder fossa. Small hepatic calcification and several small splenic calcific lesions consistent with old granulomatous disease. Gallbladder an d right adrenal gland is normal. No significant interval change in a 2.6 x 2.0 cm lobular left adrena l mass with a few central calcifications. Several bilateral renal cysts the largest at the lower pole the left kidney measuring 1.0 cm. There is thickening of the plane of soft tissue density extending craniocaudally between the left adrenal gland and the posterior margin of the tail of the pancreas. T he density previously measured approximately 5 x 4.5 cm extent and up to 1.2 cm thickness with curren t corresponding measurements of 8 x 8 x 1.7 cm. There are few scattered clonic diverticula without ad jacent inflammatory stranding to suggest diverticulitis. Small bowel is normal with no obstruction. B ladder is normal. Prostatomegaly. No free intraperitoneal gas or fluid. No pathologically enlarged ab dominal or pelvic lymphadenopathy. There is calcified atherosclerosis of the normal caliber abdominal aorta and many of the other arteries. Normal anatomic variant absent celiac axis with separate origi ns of the splenic and common hepatic arteries. Small fat-containing umbilical hernia. Mild thoracolum bar dextrocurvature with moderate to severe lumbar spondylosis. IMPRESSION: 1. Stable appearance of a 2.6 x 2.0 cm lobular left adrenal mass consistent with biopsy-proven metast atic melanoma. 2. Interval increase in a localized plane of thickened soft tissue density at the left anterior parar enal space. Is concerning for progression of metastatic disease infiltrating from the adjacent left a drenal gland versus sequela of acute or chronic pancreatitis. Correlate with clinical history and wit h lipase levels. 3. Stable appearance of region of round atelectasis in the posterior basilar left lower lobe with adj acent chronic tiny loculated left pleural effusion. 4. Diffuse hepatic steatosis. 5. Prostatomegaly. Reviewed, dictated and finalized at location A. IMPRESSION: 1. Stable appearance of a 2.6 x 2.0 cm lobular left adrenal mass consistent wit h biopsy-proven metastatic melanoma. 2. Interval increase in a localized plane of thickened soft tissue density at t he left anterior pararenal space. Is concerning for progression of metastatic d isease infiltrating from the adjacent left adrenal gland versus sequela of acut e or chronic pancreatitis. Correlate with clinical history and with lipase leve ls. 3. Stable appearance of region of round atelectasis in the posterior basilar le ft lower lobe with adjacent chronic tiny loculated left pleural effusion. 4. Diffuse hepatic steatosis. 5. Prostatomegaly.
--- OUTSIDE RECORDS SUMMARY | 2025-04-03 10:10 | XMS_ITS | Clinical Summary ---
Author Organization [facility] Address [address] [place] [address] Care Team Providers Care Cut Off Sawyer [place] Name Role Phone Gadiel Brown MD Primary Care Provider [phone] Allergies No known active allergies Medications carvediloL [...] Encounters Date Type Department Care Team Description 03/28/2025 External Device Data STL ABSTRACTION Provider, Abstract 03/27/2025 External Device Data STL ABSTRACTION Provider, Abstract 03/26/2025 Orders Only [facility] Oncology and Hematology - [place] [address] Yousuf Hobson MD Melanoma of trunk (CMS/HCC) 03/14/2025 Orders Only [facility] Oncology and Hematology - [place] [address] Yousuf Hobson MD 03/13/2025 11:00 AM CDT Office Visit [facility] Oncology and Hematology - [place] [address] Yousuf Hobson MD Melanoma of trunk ([facility]/HCC) (Primary Dx) 03/12/2025 Orders Only [facility] Oncology and Hematology - [place] [address] Yousuf Hobson MD Melanoma of trunk ([facility]/HCC) 02/27/2025 External Device Data STL ABSTRACTION Provider, Abstract 02/26/2025 Orders Only [facility] Oncology and Hematology - [place] [address] Yousuf Hobson MD Melanoma of trunk ([facility]/HCC) 02/14/2025 Orders Only [facility] Oncology and Hematology - [place] [address] [place] [id number] Yousuf Hobson MD 02/13/2025 9:15 AM CDT Office Visit [facility] Oncology and Hematology - [place] [address] [place] [address] Yousuf Hobson MD Melanoma of trunk ([facility]/HCC) (Primary Dx) 02/12/2025 Orders Only [facility] Oncology and Hematology - [place] [address] [place] [address] Yousuf Hobson MD Melanoma of trunk (CMS/HCC) 02/06/2025 External Device Data STL ABSTRACTION Provider, Abstract 02/01/2025 External Device Data STL ABSTRACTION Provider, Abstract 01/30/2025 External Device Data STL ABSTRACTION Provider, Abstract 01/29/2025 Orders Only [facility] Oncology and Hematology - [place] [address] [place] [id number] Yousuf Hobson MD Melanoma of trunk ([facility]/HCC) 01/22/2025 Orders Only [facility] Oncology and Hematology - [place] [address] Yousuf Hobson MD 01/19/2025 Orders Only [facility] Oncology and Hematology - [place] [address] Yousuf Hobson MD 01/16/2025 9:00 AM CDT Office Visit [facility] Oncology and Hematology - [place] [address] Yousuf Hobson MD Melanoma of trunk ([facility]/HCC) (Primary Dx) 01/16/2025 Orders Only [facility] Oncology and Hematology - [place] [address] Yousuf Hobson MD Melanoma of trunk ([facility]/HCC) (Primary Dx) 01/16/2025 Orders Only [facility] Oncology and Hematology - [place] [address] [place] [id number] Yousuf Hobson MD Melanoma of trunk ([facility]/HCC) (Primary Dx) 01/15/2025 Orders Only [facility] Oncology and Hematology - [place] [address] [place] [address] Yousuf Hobson MD Melanoma of trunk ([facility]/HCC) 01/10/2025 Orders Only [facility] Oncology and Hematology - [place] [address] [place] [address] Yousuf Hobson MD from Last 3 Months Social History Tobacco [...] on file 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 Gender Identity Not on file Sexual Orientation Not on file Last Filed Vital Signs Vital Sign Reading Time Taken Comments Blood Pressure 144/74 03/13/2025 10:46 AM CDT Pulse 62 03/13/2025 10:44 AM CDT Temperature 36.6 C (97.9 F) 03/13/2025 10:44 AM CDT Respiratory Rate 15 03/13/2025 10:44 AM CDT Oxygen Saturation 95% 03/13/2025 10:44 AM CDT Inhaled Oxygen Concentration - - Weight 85.7 kg (189 lb) 03/13/2025 10:44 AM CDT Height 172.7 cm (5' 8) 06/16/2022 8:45 AM CDT Body Mass Index 28.74 06/16/2022 8:45 AM CDT Plan of Treatment Upcoming Encounters Date Type Department Care Team (Late st Contact Info) Description 04/10/2025 10:15 AM CDT Office Visit [facility] Oncology and Hematology - [place] [address] [facility] [address] [place] [address] Yousuf Hobson MD [address] [facility] [address] [place] [address] Health Maintenance Due Date Last Done Comments Pre-Diabetes and Diabetes Screening 1962 DTAP/TDAP/TD VACCINES (1 - Tdap) 1981 COLORECTAL SCREENING 2007 Colorectal Cancer Screening 2007 FIT-DNA Q 3 years 2007 FIT/FOBT Q 1 year 2007 Flex Sig/CT Colonography Q 5 years 2007 ZOSTER VACCINE (1 of 2) 2012 INFLUENZA VACCINE (#1) 2025 RSV VACCINE (60+ or ) (1 - 1-dose 75+ series) 2037 Procedures Procedure Name Priority Date/Time Associated Diagnosis Comments CBC WITH AUTODIFFERENTIAL Routine 2024 7:50 AM CDT BASIC METABOLIC PANEL Routine 03/13/2025 7:49 AM CDT COMPREHENSIVE METABOLIC PANEL Routine 03/13/2025 7:42 AM CDT COMPREHENSIVE METABOLIC PANEL Routine 02/13/2025 11:06 AM CDT BASIC METABOLIC PANEL Routine 02/13/2025 7:58 AM CDT CBC WITH DIFFERENTIAL Routine 02/13/2025 7:49 AM CDT BASIC METABOLIC PANEL Routine 01/16/2025 3:33 PM CDT COMPREHENSIVE METABOLIC PANEL Routine 01/16/2025 12:42 PM CDT COMPREHENSIVE METABOLIC PANEL Routine 01/16/2025 12:[address] CHEST ABDOMEN PELVIS W CONT Routine 01/10/2025 10:29 AM CDT from Last 3 Months Results * CBC WITH AUTODIFFERENTIAL (03/13/2025 7:50 AM CDT) Blood us Yousuf Hobson MD HEMATOLOGY ORDERABLES Final Res ult * BASIC METABOLIC PANEL (03/13/2025 7:49 AM CDT) Only the most recent of3 resultswithin the time period is included. Blood us Yousuf Hobson MD CHEMISTRY ORDERABLES Final Resu lt * COMPREHENSIVE METABOLIC PANEL (03/13/2025 7:42 AM CDT) Only the most recent of4 resultswithin the time period is included. Blood us Yousuf Hobson MD CHEMISTRY ORDERABLES Final Resu lt * CBC WITH DIFFERENTIAL (02/13/2025 7:49 AM CDT) Blood us Yousuf Hobson MD HEMATOLOGY ORDERABLES Final Res ult * CT CHEST ABDOMEN PELVIS W CONT (01/10/2025 10:29 AM CDT) Anatomical Region Laterality Modality Chest Computed Tomogra phy Yousuf Hobson MD CT ORDERABLES Final Result from Last 3 Months Insurance MEDICAID [place] MEDICARE PART A AND B Care Teams Cut Off Sawyer [place] Relationship Specialty Start Date End Date Gadiel Brown MD [address] [place] [address] PCP - General Internal Medicine 08/22/20
== END 2025-04-03 10:04 | disposition home or self-care (01) ==
PROVIDERS: PCP Internal Medicine; Visit Provider Internal Medicine Hematology & Oncology
DX: C43.59 Malignant melanoma of other part of trunk (principal); C79.72 Secondary malignant neoplasm of left adrenal gland; J98.11 Atelectasis; J90 Pleural effusion, not elsewhere classified; K76.0 Fatty (change of) liver, not elsewhere classified; N40.0 Benign prostatic hyperplasia without lower urinary tract symptoms
CPT/HCPCS: 71260; 74177; Q9967

== ENCOUNTER 2025-07-12 11:42 | Outpatient (CLI) | payer MEDICARE, MEDICAID, SELFPAY ==
--- NOTE | ~2025-07-12 | PE_ITS ---
EXAMINATION: PET skull to mid thigh DATE: 07/12/2025 14:11 INDICATION: Melanoma of trunk. TECHNIQUE: Blood glucose level was 120 mg/dL. 10.384 mCi of 18- fluorodeoxyglucose (18-FDG) was administered i.v. Low dose computed tomography (CT) images were acquired from the base of the brain to the proximal thighs for attenuation correction and anatomic localization. Automated exposure control was employed. Dose-length product (DLP) was 1154 mGy-cm. Positron emission tomography (PET) images were acquired in the same distribution. COMPARISON: CT 04/03/2025, 05/30/24 FINDINGS: Head/neck: There are no pathologically enlarged lymph nodes. There is mucosal thickening in the paranasal sinuses. There are old blowout fractures of medial wall and floor of left orbit. Chest: Calcified left lung nodules and calcified left hilar lymph nodes are consistent with old granulomatous disease. There is pleural thickening in left hemithorax. No pleural effusion. There is peripheral rounded atelectasis in left lower lobe. The heart size is normal. There are coronary artery calcifications. No pericardial effusion. There is a left subclavian port with tip at superior cavoatrial junction. Abdomen/pelvis/proximal thighs: The liver and gallbladder are normal. Calcifications in the spleen are consistent with old granulomatous disease. Right adrenal gland is normal. There is a 1.9 cm mass with calcifications in left adrenal gland with maximum SUV of 3.2. There is a 13 mm cyst in the tail of the pancreas, likely a pseudocyst. There is chronic thickening of the left anterior pararenal fascia without increased activity, consistent with scarring. The prostate is mildly enlarged. There is diverticulosis of the colon without evidence of diverticulitis. The appendix is not visualized. There are no dilated loops of bowel. There are no pathologically enlarged lymph nodes. There is no osseous malignancy. IMPRESSION: 1. 1.9 cm left adrenal mass with calcifications and mildly increased activity, stable from 04/03/2025, consistent with metastatic melanoma (proved by biopsy on 04/11/21). Reviewed, dictated and finalized at location E.
--- OUTSIDE RECORDS SUMMARY | 2025-07-12 12:49 | XMS_ITS | Clinical Summary ---
Author Organization [facility] Address [address] [place] [address] Care Team Providers Care Ampoule Filler Name Role Phone Gadiel Brown MD Primary Care Provider Allergies No known active allergies Encounters Date Type Department Care Team Description 06/25/2025 1:36 PM CDT - 06/25/2025 11:59 PM CDT [facility] [address] [place] [address] Malignant melanoma of other part of trunk; Aneurysm of other precerebral arteries Discharge Disposition: Discharge to home or self care from Last 3 Months Social History Tobacco Use Types Packs/Day Years Used Date Smoking Tobacco: Never Assessed Sex and Gender Information Value Date Recorded Sex Assigned at Not on file Legal Sex Male 10:47 AM [employer] Gender Identity Not on file Sexual Orientation Not on file Plan of Treatment Health Maintenance Due Date Last Done Comments Colon Cancer Screening-Colonoscopy 1962 Depression Screening 1962 Hepatitis C Screening 1962 Prostate Cancer Screening-PSA 1962 Hepatitis B Screening 1980 Regular Well Visit/Exam 18-64 1980 Pneumococcal vaccine <65 (1 of 2 - PCV) 1981 Zoster Vaccine (1 of 2) 1981 Covid-19 Vaccine (3 - Pfizer risk series) 05/15/2021 04/17/2021, 03/27/2021 Influenza Vaccine (#1) 2025 DTaP/Tdap/Td Vaccine (2 - Td or Tdap) 12/23/202808/2019 Procedures Procedure Name Priority Date/Time Associated Diagnosis Comments CT CHEST ABDOMEN PELVIS W CONTRAST Schedule Routine, Read Routine (OP Routine) 06/25/2025 1:47 PM CDT 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 Reconstructed coronal and sagittal MPR images reviewed. All images stored on PACS. Automated exposure control was used as a dose optimization technique for this examination. CONTRAST TYPE/DOSE: 95mL of IOVERSOL 350 MG IODINE/ML INTRAVENOUS SYRINGE injected via intravenous COMPARISON: None FINDINGS: CHEST LUNGS: There are minimal paraseptal emphysematous changes. The central airways are patent. There is a 4 mm solid nodule in the left upper lobe along the fissure (series 5, image 42). There is a 6 mm solid nodule in the left lower lobe on image 74. In the peripheral posterior aspect of the left lower lobe there is a somewhat rounded area of dense consolidative opacity with swirling of the vasculature, likely rounded atelectasis. There are scattered calcified pulmonary granulomas. PLEURA: No effusion. No pneumothorax. MEDIASTINUM/ASHLEY: There are multiple prominent but nonenlarged paratracheal lymph nodes. HEART: Heart size is normal with no pericardial effusion. Coronary artery calcifications are present. VASCULATURE CHEST: No thoracic aortic aneurysm or dissection. AXILLA: No adenopathy. CHEST WALL: No masses. No subcutaneous air. HARDWARE/LINES/TUBES: Left-sided Port-A-Cath with the tip in the superior vena cava. MUSCULOSKELETAL CHEST: There are no suspicious osseous lesions. ABDOMEN/PELVIS LIVER: There are no suspicious osseous lesions. GALLBLADDER: No stones identified. No wall thickening or inflammatory changes. BILE DUCTS: No intrahepatic or extrahepatic ductal dilatation. SPLEEN: Normal size. No focal lesions. PANCREAS: At the tip of the tail of the pancreas there is a 1.5 cm hypoattenuating cystic lesion (series 6 image 33). This abuts the thickened anterior renal fascia. There is no pancreatic ductal dilatation. ADRENALS: Normal. KIDNEYS/URINARY TRACT: There are multiple subcentimeter low-attenuation lesions in the kidneys bilaterally which are too small to be characterized. There is a small cyst in the left kidney upper pole. There is no hydronephrosis or hydroureter. Urinary bladder is unremarkable. GI: Stomach is decompressed. No dilated or thick-walled loops of bowel appreciated. The appendix is not identified. There is colonic diverticulosis without diverticulitis. PERITONEUM/RETROPERITONEUM: No ascites or free air. There is severe thickening of the anterior renal fascia anterior to the left kidney, measuring up to 1.2 cm in thickness. Adjacent to this there is a 2.2 x 2.1 x 3.6 cm partially calcified mass (series 6, image 28). Few other smaller similar-appearing masses REPRODUCTIVE: The prostate is enlarged. VASCULATURE ABDOMEN: There is a large amount of calcified atherosclerotic plaque throughout the aortoiliac system. No aneurism. MUSCULOSKELETAL ABDOMEN PELVIS: There are no suspicious osseous lesions. There are degenerative changes of the lumbar spine. OTHER: Small fat containing umbilical hernia. IMPRESSION: 1. Severe thickening of the left anterior renal fascia with an adjacent partially calcified mass measuring up to 2.2 x 2.1 x 3.6 cm. This finding is indeterminate. This would be an atypical appearance for metastatic disease. Desmoid tumor is in the differential. Recommend further evaluation with PET-CT. 2. 1.5 cm hypoattenuating cystic lesion at the tip of the tail of the pancreas abutting the above described thickened left anterior renal fascia. Uncertain if this could be sequela prior episodes of pancreatitis or an IPMN. Recommend further evaluation with pancreatic mass protocol MRI. 3. Rounded area consolidation in the peripheral left lower lobe with swirling vasculature which could represent rounded atelectasis. Recommend three-month follow-up CT chest. 4. 6 mm solid nodule in the left lower lobe. Recommend attention on follow-up. Enlarged prostate. 5. Colonic diverticulosis without diverticulitis. THIS IS AN ELECTRONICALLY VERIFIED FINAL REPORT 06/26/2025 4:53 PM - Electronically signed by Dominic Katerin Conklin M.D., AM T: Report ID: [id number] Reading Location: [place] [address] Procedure Note Dominic Conklin MD - 06/26/2025 EXAM DESCRIPTION: CT CHEST ABDOMEN PELVIS W CONTRAST REASON FOR STUDY: c43.59 TECHNIQUE: CT scan of the chest, abdomen, and pelvis performed with intravenous and without oral contrast using helical scanning techniquewith dynamic intravenous contrast injection. Reconstructed coronal and sagittalMPR images reviewed. All images stored on PACS. Automated exposure control was used as a dose optimization technique for this examination. CONTRAST TYPE/DOSE: 95mL of IOVERSOL 350 MG IODINE/ML INTRAVENOUS SYRINGE injected via intravenous COMPARISON: None FINDINGS: CHEST LUNGS: There are minimal paraseptal emphysematous changes. The central airways are patent. There is a 4 mm solid nodule in the left upper lobe along the fissure (series 5, image 42). There is a 6 mm solid nodule inthe left lower lobe on image 74. In the peripheral posterior aspect of theleft lower lobe there is a somewhat rounded area of dense consolidative opacity with swirling of the vasculature, likely rounded atelectasis. There are scattered calcified pulmonary granulomas. PLEURA: No effusion. No pneumothorax. MEDIASTINUM/ASHLEY: There are multiple prominent but nonenlargedparatracheal lymph nodes. HEART: Heart size is normal with no pericardial effusion. Coronaryartery calcifications are present. VASCULATURE CHEST: No thoracic aortic aneurysm or dissection. AXILLA: No adenopathy. CHEST WALL: No masses. No subcutaneous air. HARDWARE/LINES/TUBES: Left-sided Port-A-Cath with the tip in thesuperior vena cava. MUSCULOSKELETAL CHEST: There are no suspicious osseous lesions. ABDOMEN/PELVIS LIVER: There are no suspicious osseous lesions. GALLBLADDER: No stones identified. No wall thickening or inflammatory changes. BILE DUCTS: No intrahepatic or extrahepatic ductal dilatation. SPLEEN: Normal size. No focal lesions. PANCREAS: At the tip of the tail of the pancreas there is a 1.5 cm hypoattenuating cystic lesion (series 6 image 33). This abuts thethickened anterior renal fascia. There is no pancreatic ductal dilatation. ADRENALS: Normal. KIDNEYS/URINARY TRACT: There are multiple subcentimeter low-attenuation lesions in the kidneys bilaterally which are too small to becharacterized. There is a small cyst in the left kidney upper pole. There is no hydronephrosis or hydroureter. Urinary bladder is unremarkable. GI: Stomach is decompressed. No dilated or thick-walled loops of bowel appreciated. The appendix is not identified. There is colonicdiverticulosis without diverticulitis. PERITONEUM/RETROPERITONEUM: No ascites or free air. There is severe thickening of the anterior renal fascia anterior to the left kidney,measuring up to 1.2 cm in thickness. Adjacent to this there is a 2.2 x 2.1 x 3.6 cm partially calcified mass (series 6, image 28). Few other smaller similar-appearing masses REPRODUCTIVE: The prostate is enlarged. VASCULATURE ABDOMEN: There is a large amount of calcifiedatherosclerotic plaque throughout the aortoiliac system. No aneurism. MUSCULOSKELETAL ABDOMEN PELVIS: There are no suspicious osseous lesions. There are degenerative changes of the lumbar spine. OTHER: Small fat containing umbilical hernia. IMPRESSION: 1. Severe thickening of the left anterior renal fascia withan adjacent partially calcified mass measuring up to 2.2 x 2.1 x 3.6 cm.This finding is indeterminate. This would be an atypical appearance formetastatic disease. Desmoid tumor is in the differential. Recommend furtherevaluation with PET-CT. 2. 1.5 cm hypoattenuating cystic lesion at the tip of the tail of the pancreas abutting the above described thickened left anterior renalfascia. Uncertain if this could be sequela prior episodes of pancreatitis or anIPMN. Recommend further evaluation with pancreatic mass protocol MRI. 3. Rounded area consolidation in the peripheral left lower lobe withswirling vasculature which could represent rounded atelectasis. Recommendthree-month follow-up CT chest. 4. 6 mm solid nodule in the left lower lobe. Recommend attention on follow-up. Enlarged prostate. 5. Colonic diverticulosis without diverticulitis. THIS IS AN ELECTRONICALLY VERIFIED FINAL REPORT 06/26/2025 4:53 PM - Electronically signed by Dominic Conklin M.D. AM T: Report ID: [id number] Reading Location: [place] [address] Yousuf Hobson MD IMG CT PROCEDURES Final Result from Last 3 Months Insurance [facility] Address: [address] [address] [place] [address] Care Teams Ampoule Filler Relationship Specialty Start Date End Date Gadiel Brown MD [address] [place] [address] PCP - General Internal Medicine 06/12/25
== END 2025-07-12 11:43 | disposition home or self-care (01) ==
PROVIDERS: PCP Internal Medicine; Visit Provider Internal Medicine Hematology & Oncology
DX: C43.59 Malignant melanoma of other part of trunk (principal)
CPT/HCPCS: 78815; A9552